=== PATIENT | female | born 1940 | race Caucasian/White ===

== ENCOUNTER → 2017-04-14 | Outpatient (CLI) | payer OTHER ==
--- NOTE | 2017-04-15 07:57 | MAMMOGRAPHY REPORT ---
BILATERAL DIGITAL SCREENING MAMMOGRAM WITH CAD: 04/14/2017 CLINICAL HISTORY: Routine screening. Patient has no complaints. TECHNIQUE: Bilateral CC and MLO views were obtained. Current study was also evaluated with a Compute r Aided Detection (CAD) system. COMPARISON: Comparison is made to exams dated: 04/12/2016 mammogram, 03/06/2015 mammogram, 03/16/2014 m ammogram, 03/04/2014 mammogram, 03/03/2013 mammogram, and 03/02/2012 mammogram - [facility] nter. BREAST COMPOSITION: The tissue of both breasts is heterogeneously dense, which may obscure small mas ses. FINDINGS: There are mild vascular calcifications and scattered benign rim calcifications in the breas ts. No suspicious mass, architectural distortion or cluster of suspicious microcalcifications is see n. IMPRESSION: ACR BI-RADS CATEGORY 1: NEGATIVE There is no mammographic evidence of malignancy. A 1 year screening mammogram is recommended. The pa tient will receive written notification of the results. Approximately 10% of breast cancers are not detected with mammography. A negative mammographic report should not delay biopsy if a clinically suggestive mass is present. Damaris Guajardo M.D. ay/:04/14/2017 15:13:38 Marketing Recruiter: [employer] DIGGS(Oswaldo)([place])([place]), [facility] letter sent: Normal 1/2 BI-RADS Code: ACR BI-RADS Category 1: Negative
== END | disposition home or self-care (01) ==
LOC: C.MAMM 10:35
PROVIDERS: ATTEND Internal Medicine
DX: Z12.31 Encounter for screening mammogram for malignant neoplasm of breast (principal)

== ENCOUNTER 2023-04-12 14:29 | Inpatient (IN) ==
--- NOTE | 2023-04-12 14:45 | Emergency Department Note ---
Impression & Plan Closed right hip fracture, Right wrist fracture, Fall ED Provider Note NAME: JESSICA SAGE AGE: 82 SEX: F : 1940 ARRIVES VIA: Ambulance INFORMANT: Patient, ED PROVIDER(S): Patrice Cardenas MD CHIEF COMPLAINT: Fall, hip pain, arm pain MEDICAL DECISION MAKING: Patient presents for fall with associated hip and arm pain. The patient did receive IV pain medication in route. IV was established blood work is obtained. The patient denies any LOC or head strike. Patient did have plain images performed of the right wrist, right hip and pelvis as well as the right ribs and chest. Patient did receive IV morphine. Patient's blood work shows a white count of 13 with a normal H&H and platelet count. White count may be reactive in nature. Kidney function unremarkable with mild hyponatremia 135. LFTs unremarkable. X-rays reviewed by myself do show distal radius fracture as well as right hip fracture. I did message on- call orthopedist Dr. Prajapati to make them aware. I did speak the on-call medicine service JESSICA Kraft and the patient was admitted by Dr. Sy. Procedures: Splinting of right upper extremity Indication: Right distal radius and ulnar styloid fractures Verbal consent obtained. Risks and benefits were explained with the usual customary discussion. The injured extremity was identified. The patient was prepped and measured for the placement of a sugar-tong ortho-glass splint. Splint applied in the standard fashion over a layer of webril and secured using an elastic bandage. Set into a position of function. Normal neurovascular status after placement verified by me. The patient tolerated the procedure well and the care of the splint was discussed with the patient/family. No complications. Definitive Fracture Care note: Dx: Distal radius and ulnar styloid fractures Plan: Immobilization, rest, ice, elevation, analgesia, orthopedic follow up in 3-5 days. Prior /Outside records reviewed: None Differential diagnosis: Fracture, sprain, strain, pneumothorax, pneumonitis among others were considered. Diagnostics, as interpreted by me: ECG: Normal sinus rhythm, rate of 65, normal intervals, left axis deviation, T wave version aVL, no ST elevations no prior EKGs for comparison Cardiac monitoring: An order was placed for continuous cardiac monitoring. The monitor shows a rate of 75 with sinus rhythm. Patient was placed on pulse oximetry Medical decision rules: [place] head CT rule Imaging studies: See below I informally reviewed the patient's right hip and pelvis x-rays which do show right-sided hip fracture. I informally reviewed the patient's right wrist x-rays which do show distal radius and ulnar styloid fractures. I informally reviewed the patient's chest and rib x-rays. No obvious pneumothorax noted. HPI: Patient presents due to concern for fall that occurred prior to arrival. The patient states that she was having some possible allergy symptoms with regard to some congestion she had gotten up turned and then fell to her right side. The patient did strike her right hip as well as her right arm. The patient was having pain and was unable to lift the right lower extremity. Patient denies any numbness tingling or focal weakness. The patient believes that she cannot move the leg secondary to pain. Patient was reported to be shortened rotated per EMS. EMS did give the patient IV pain medication was noted to be mildly hypoxic likely secondary to medication administration was placed on supplemental nasal cannula oxygen. Patient denies any shortness of breath. The patient does complain of right wrist and right hip pain. The patient also complains of right-sided chest wall pain. Patient does not take any blood thinning medications and denies any LOC or head strike and has no head or neck pain. PAST MEDICAL HISTORY: See Below PAST SURGICAL HISTORY: See Below SOCIAL HISTORY: See Below HOME MEDICATIONS: See Below ALLERGIES: See Below VITALS: See Below PHYSICAL EXAMINATION: GENERAL: Uncomfortable but nontoxic in appearance. Nasal cannula in place. EYE EXAM: Normal conjunctiva. PERRL, no anisocoria and EOM's grossly intact w/o pain. OROPHARYNX: Moist mucus membranes, grossly normal dentition. NECK: Supple, no nuchal rigidity, no adenopathy, non-tender. No signs of meningismus. FROM of the neck with good chin to chest and neck extension. No stridor. Chest: Reproducible right mid axillary chest wall pain without overlying crepitus or flail chest noted LUNGS: Clear to auscultation. Normal chest wall mechanics. HEART: NSR, no MRG. ABDOMEN: Abdomen soft, non-tender, no masses, no rebound or guarding. BACK: No CVA TTP. SKIN: No rashes and no bruising. UPPER EXTREMITIES: Pain noted to the distal wrist. Neurovascular intact distall y to median ulnar and radial nerves. Well perfused LOWER EXTREMITIES: Right hip pain, right lower extremity is shortened, neurovascular intact distally with good DP pulse and sensation and motor tach in the ankle to DP SP and tibialis nerves NEURO EXAM: A&O x3, cranial nerves II-XII grossly intact, normal speech, moves all 4 extremities. Past Med/Surg History Medical History Chronic congestive heart failure Coronary artery disease involving [place] coronary artery of [place] heart without angina pectoris Essential (primary) hypertension Hyperlipidemia Surgical History H/O: hysterectomy History of ankle surgery Family History Brother Coronary heart disease Brother Coronary heart disease Sister Coronary heart disease Father Lung disease Mother Breast cancer Social History (Updated 04/12/23 @ 17:47 by Viki Friedman MD) Smoking Status: Never smoker Second Hand Exposure: No; Do You Dip or Chew Tobacco: No; Hx Alcohol Use: No Hx Substance Use: No Preferred Language: Korean Communication Ability: Effective Lab Support Tech Required: No Beliefs That Will Affect Care: None Current Living Situation: Alone Other Information That Helps Us Care for You: No Feels Safe at Home: Yes Safety Concerns: Feels Safe At This Time Assistive Devices: None Allergies Allergies Allergy/AdvReac Type Severity Reaction Status Date / Time No Known Allergies Allergy Unverified 04/12/23 21:13 Home Meds Home Medications Medication Instructions Recorded Confirmed amlodipine 5 mg tablet 5 mg PO DAILY 04/12/23 04/12/23 atorvastatin 80 mg tablet 80 mg PO HS 04/12/23 04/12/23 citalopram 10 mg tablet 10 mg PO QAM 04/12/23 04/12/23 ezetimibe 10 mg tablet (Zetia) 10 mg PO QPM 04/12/23 04/12/23 furosemide 20 mg tablet 20 mg PO DIRECTED 04/12/23 04/12/23 hydrocodone 5 mg-acetaminophen 325 1 tab PO QID PRN Pain 04/12/23 04/12/23 mg tablet lisinopril 2.5 mg tablet 2.5 mg PO PM 04/12/23 04/12/23 montelukast 10 mg tablet 10 mg PO PM 04/12/23 04/12/23 ondansetron 4 mg disintegrating 4 mg PO Q6H PRN Nausea And Vomiting 04/12/23 04/12/23 tablet pantoprazole 40 mg tablet,delayed 40 mg PO DAILYBB 04/12/23 04/12/23 release Results & Data (ED) Vital Signs Vital Signs - 24 hr 04/12/23 14:16 04/12/23 14:57 04/12/23 15:04 Temperature 36.7 C Temperature Source Oral Pulse Rate 65 63 Pulse Rate from SpO2 Sensor Respiratory Rate 21 Respiratory Effort / Characteristics Non-Labored Spontaneous Respiratory Depth Normal Respiratory Pattern Regular Blood Pressure 177/83 H Blood Pressure Mean 114 Pulse Oximetry 96 97 Oxygen Delivery Method Room Air Room Air Sepsis Recent Fever Within 48 Hours No Sepsis New/Unexplained Change in Mental Status N/A Sepsis Action Taken by Nursing No Action Required 04/12/23 14:34 04/12/23 14:35 04/12/23 14:35 Temperature Temperature Source Pulse Rate 68 66 Pulse Rate from SpO2 Sensor 65 Respiratory Rate 19 20 Respiratory Effort / Characteristics Respiratory Depth Respiratory Pattern Blood Pressure 177/83 H Blood Pressure Mean 113 Pulse Oximetry 97 Oxygen Delivery Method Sepsis Recent Fever Within 48 Hours Sepsis New/Unexplained Change in Mental Status Sepsis Action Taken by Nursing 04/12/23 15:00 04/12/23 15:30 Temperature Temperature Source Pulse Rate 64 71 Pulse Rate from SpO2 Sensor 60 71 Respiratory Rate 16 16 Respiratory Effort / Characteristics Respiratory Depth Respiratory Pattern Blood Pressure Blood Pressure Mean Pulse Oximetry 97 97 Oxygen Delivery Method Room Air Sepsis Recent Fever Within 48 Hours Sepsis New/Unexplained Change in Mental Status Sepsis Action Taken by Care Home Medications Current Medication List: was personally reviewed by me Laboratory Data Attestation: I reviewed the patient's lab results. 04/13/23 08:32 04/13/23 08:32 Lab Results 04/12/23 04/12/23 Range/Units 14:39 14:39 WBC 13.02 H (4.8-10.8) K/ul RBC 4.65 (4.20-5.40) M/uL Hgb 13.9 (12.0-16.0) g/dl Hct 41.9 (37.0-47.0) % MCV 90.1 (80.0-100.0) fL MCH 29.9 (25.0-34.0) pg MCHC 33.2 (32.0-36.0) g/dL RDW Std Deviation 42.6 (36.4-46.3) fL RDW Coeff of Pamela 12.9 (11.5-14.5) % Plt Count 210 (130-400) K/uL MPV 10.3 (9.4-12.4) fL Immature Gran % (Auto) 0.5 % Neut % (Auto) 86.5 % Lymph % (Auto) 6.3 % Carlisle % (Auto) 6.4 % Eos % (Auto) 0.1 % Baso % (Auto) 0.2 % Neut # (Auto) 11.27 H (1.40-6.50) K/uL Lymph # (Auto) 0.82 L (1.2-3.4) K/uL Carl[place] # (Auto) 0.83 H (0.11-0.59) K/uL Eos # (Auto) 0.01 (0-0.50) K/uL Baso # (Auto) 0.03 (0-0.2) K/uL Immature Gran # (Auto) 0.06 (0.01-0.20) K/uL Sodium 135 L (136-145) mmol/L Potassium 4.2 (3.5-5.1) mmol/L Chloride 103 (98-107) mmol/L Carbon Dioxide 25 (21-32) mmol/L Anion Gap 7 (3-11) BUN 14 (6-23) mg/dl Creatinine 0.96 (0.6-1.2) mg/dl Est Cr Clr Drug Dosing 52.4 ml/min Est GFR ( Amer) 63.8 ml/min Est GFR (Non-Af Amer) 55.1 ml/min BUN/Creatinine Ratio 14.6 (10-20) Glucose 114 H (70-99(Fasting)) mg/dl Calcium 9.3 (8.6-10.3) mg/dl Total Bilirubin 0.5 (0.2-1.0) mg/dl AST 28 (13-39) U/L ALT 20 (7-52) U/L Alkaline Phosphatase 96 (34-104) U/L Total Protein 6.8 (6.0-8.3) gm/dl Albumin 4.2 (3.4-5.0) gm/dl Globulin 2.6 (2.5-4.0) gm/dl Albumin/Globulin Ratio 1.6 (0.9-2) Lipase 24 (11-82) U/L Administered Medications Amlodipine Besylate (Amlodipine Besylate 5 Mg Tab) 5 mg PO DAILY ROSE MARIE Stop: 05/13/23 08:59 Last Admin: 04/13/23 07:29 Dose: 5 mg Documented By: CMV Atorvastatin Calcium (Atorvastatin 40 Mg Tab) 80 mg PO HS ROSE MARIE Stop: 05/12/23 21:54 Last Admin: 04/12/23 23:47 Dose: 80 mg Documented By: EKF Citalopram Hydrobromide (Citalopram 20 Mg Tab) 10 mg PO QAM ROSE MARIE Stop: 05/13/23 08:59 Last Admin: 04/13/23 07:29 Dose: 10 mg Documented By: CMV Ezetimibe (Ezetimibe 10 Mg Tab) 10 mg PO QPM ROSE MARIE Stop: 05/12/23 21:54 Last Admin: 04/12/23 23:47 Dose: 10 mg Documented By: EKF Lisinopril (Lisinopril 2.5 Mg Tab) 2.5 mg PO PM ROSE MARIE Stop: 05/12/23 21:54 Last Admin: 04/12/23 23:47 Dose: 2.5 mg Documented By: EKF Montelukast Sodium (Montelukast Sodium 10 Mg Tablet) 10 mg PO PM ROSE MARIE Stop: 05/12/23 21:54 Last Admin: 04/12/23 23:48 Dose: 10 mg Documented By: EKF Morphine Sulfate (Morphine Sulfate 4 Mg/Ml 1 Ml Carp\Vial) 4 mg IV Q4 PRN PRN Reason: Severe Pain (Scale 7, 8, 9,10) Stop: 04/26/23 21:54 Last Admin: 04/13/23 06:01 Dose: 4 mg Documented By: Admin: 04/12/23 22:29 Dose: 4 mg Documented By: EKF Ondansetron HCl (Ondansetron Inj 2 Mg/Ml 2 Ml Vial) 4 mg IV Q6H PRN PRN Reason: Nausea Stop: 05/12/23 18:04 Last Admin: 04/13/23 06:07 Dose: 4 mg Documented By: Admin: 04/12/23 22:28 Dose: 4 mg Documented By: EKF Pantoprazole Sodium (Pantoprazole 40 Mg Tab) 40 mg PO DAILYBB ROSE MARIE Stop: 05/13/23 06:29 Last Admin: 04/13/23 07:30 Dose: 40 mg Documented By: Admin: 04/13/23 05:33 Dose: Not Given Documented By: EKF Discontinued Medications Heparin Sodium (Porcine) (Heparin Sod 5,000 Unit/0.5 Ml Vial) 5,000 units SQ Q12 ROSE MARIE Stop: 05/12/23 20:59 Last Admin: 04/12/23 22:04 Dose: Not Given Documented By: EKF Hydromorphone HCl (Hydromorphone Inj 0.5 Mg/0.5 Ml Syr) 0.5 mg IV NOW STA Stop: 04/12/23 22:49 Last Admin: 04/12/23 22:56 Dose: 0.5 mg Documented By: PONCHOF Sodium Chloride (Nss 1000ml) 1,000 mls @ 999 mls/hr IV .Q1H1M STA Stop: 04/12/23 16:00 Last Infusion: 04/12/23 17:02 Dose: 0 mls/hr Documented By: Admin: 04/12/23 15:08 Dose: 999 mls/hr Documented By: ANIL Acetaminophen (Ofirmev) 1,000 mg in 100 mls @ 400 mls/hr IV NOW STA Stop: 04/12/23 15:14 Last Infusion: 04/12/23 16:30 Dose: 0 mls/hr Documented By: Admin: 04/12/23 15:09 Dose: 400 mls/hr Documented By: ANIL Acetaminophen (Ofirmev) 1,000 mg in 100 mls @ 400 mls/hr IV NOW STA Stop: 04/13/23 09:25 Last Infusion: 04/13/23 09:31 Dose: 0 mls/hr Documented By: Admin: 04/13/23 09:16 Dose: 400 mls/hr Documented By: CMV Morphine Sulfate (Morphine Sulfate 4 Mg/Ml 1 Ml Carp\Vial) 4 mg IV NOW STA Stop: 04/12/23 15:01 Last Admin: 04/12/23 15:08 Dose: 4 mg Documented By: ANIL Morphine Sulfate (Morphine Sulfate 4 Mg/Ml 1 Ml Carp\Vial) 4 mg IV NOW STA Stop: 04/12/23 17:37 Last Admin: 04/12/23 17:51 Dose: 4 mg Documented By: ANIL Imaging Data Radiologist's Impression: Hip/Pelvis X-Ray 04/12/23 15:00 XR hip RT 2V w pelvis HISTORY: 82 years-old Female fall, likely frx acute right hip pain status post fall COMPARISON: None TECHNIQUE: AP view of the pelvis with 2 views of the right hip FINDINGS: Moderate osteoarthritis of the hips. There is an acute fracture with probable mild comminution involving the right femoral neck which appears to be transcervical. Mild impaction with 2.3 cm of superior displacement of the distal fracture fragment. No dislocation or additional acute fracture identified. Arterial calcifications. IMPRESSION: 1. Acute mildly impacted and displaced transcervical right femoral fracture. 2. No dislocation. ACT 112: Negative or not required by law. The above report was generated using voice recognition software. It may contain grammatical, syntax or spelling errors. Electronically signed by: Abhishek Mota M.D. 04/12/2023 4:38 PM Ribs w/Chest X-Ray 04/12/23 15:00 XR ribs RT min 2V w CXR1V HISTORY: 82 years-old Female fall, R lateral rib pain acute right-sided rib pain status post fall COMPARISON: None TECHNIQUE: AP view of the chest with 4 views of the right ribs FINDINGS: Cardiomediastinal and hilar silhouettes are within normal limits. No pneumothorax, pleural effusion, airspace consolidation or pulmonary edema. Pleural thickening at the lung apices. Degenerative changes of the shoulders and spine. No acute displaced rib fractures identified. IMPRESSION: 1. No acute process of the chest. 2. No acute displaced rib fracture or pneumothorax identified. ACT 112: Negative or not required by law. The above report was generated using voice recognition software. It may contain grammatical, syntax or spelling errors. Electronically signed by: Abhishek Mota M.D. 04/12/2023 4:41 PM Wrist X-Ray 04/12/23 15:00 XR wrist RT min 3V routine HISTORY: 82 years-old Female pain post fall acute pain of the right wrist COMPARISON: None TECHNIQUE: 4 views of the right breast FINDINGS: Acute intra-articular distal radial mildly impacted fracture demonstrates a few millimeters of lateral displacement with 7 mm dorsal displacement and mild apex volar angulation. Acute minimally displaced ulnar styloid fracture. Moderate osteoarthritis with indeterminate subcentimeter bone fragment lateral to the trapezium. No acute carpal bone fracture identified. IMPRESSION: 1. Acute, mildly impacted and displaced comminuted intra-articular distal radial fracture. 2. Acute minimally displaced ulnar styloid fracture. ACT 112: Negative or not required by law. The above report was generated using voice recognition software. It may contain grammatical, syntax or spelling errors. Electronically signed by: Abhishek Mota M.D. 04/12/2023 4:37 PM Discharge Plan Visit Data Chief Complaint: Leg Injury/Pain Stated Complaint: LEG INJURY/PAIN ED Provider: Patrice Cardenas Discharge Problem: Closed right hip fracture, Right wrist fracture, Fall Patient Disposition: Admitted As Inpatient Discharge Instructions Interventions: ED Discharge Assessment Last Done: 04/12/23 21:02
[2023-04-12] MEDS ORDERED: SODIUM CHLORIDE 0.9% 1000ML 1,000 ML IV STA (15:00)
[2023-04-12] MEDS ORDERED: MoRPHine SULFATE 4 MG/ML 1 ML CARP\\VIAL IV STA ×2 (15:00→17:36)
[2023-04-12] MEDS ORDERED: ACETAMINOPHEN 1,000 MG/100 ML VIAL IV STA (15:00)
[2023-04-12 15:16] LABS: Basophils # (auto) 0.03 K/uL (0-0.2); Basophils % (auto) 0.2 %; Eosinophils # (auto) 0.01 K/uL (0-0.50); Eosinophils % (auto) 0.1 %; Hematocrit (blood only) 41.9 % (37.0-47.0); Hemoglobin 13.9 g/dl (12.0-16.0); Immature Granulocytes # (auto) 0.06 K/uL (0.01-0.20); Immature Granulocytes % (auto) 0.5 %; Lymphocytes # (auto) 0.82 K/uL (1.2-3.4); Lymphocytes % (auto) 6.3 %; Mean Corpuscular Hemoglobin 29.9 pg (25.0-34.0); Mean Corpuscular Hgb Conc 33.2 g/dL (32.0-36.0); Mean Corpuscular Volume 90.1 fL (80.0-100.0); Mean Platelet Volume 10.3 fL (9.4-12.4); Monocytes # (auto) 0.83 K/uL (0.11-0.59); Monocytes % (auto) 6.4 %; Neutrophils # (auto) 11.27 K/uL (1.40-6.50); Neutrophils % (auto) 86.5 %; Platelet Count 210 K/uL (130-400); RDW Coefficient of Variation 12.9 % (11.5-14.5); RDW Standard Deviation 42.6 fL (36.4-46.3); Red Blood Count 4.65 M/uL (4.20-5.40); White Blood Count 13.02 K/ul (4.8-10.8)
[2023-04-12 15:21] LABS: Albumin Globulin Ratio 1.6 (0.9-2); Albumin Level 4.2 gm/dl (3.4-5.0); BUN Creatinine Ratio 14.6 (10-20); Bilirubin,Total 0.5 mg/dl (0.2-1.0); Calcium 9.3 mg/dl (8.6-10.3); Creatinine Clr Calc Pharmacy 52.4 ml/min; Est GFR (African American) 63.8 ml/min; Est GFR (Non-African American) 55.1 ml/min; Globulin 2.6 gm/dl (2.5-4.0); Potassium 4.2 mmol/L (3.5-5.1); Total Protein 6.8 gm/dl (6.0-8.3)
--- NOTE | 2023-04-12 16:38 | XRay Report ---
XR wrist RT min 3V routine HISTORY: 82 years-old Female pain post fall acute pain of the right wrist COMPARISON: None TECHNIQUE: 4 views of the right breast FINDINGS: Acute intra-articular distal radial mildly impacted fracture demonstrates a few millimeters of latera l displacement with 7 mm dorsal displacement and mild apex volar angulation. Acute minimally displace d ulnar styloid fracture. Moderate osteoarthritis with indeterminate subcentimeter bone fragment late ral to the trapezium. No acute carpal bone fracture identified. IMPRESSION: 1. Acute, mildly impacted and displaced comminuted intra-articular distal radial fracture. 2. Acute minimally displaced ulnar styloid fracture. ACT 112: Negative or not required by law. The above report was generated using voice recognition software. It may contain grammatical, syntax o r spelling errors. Electronically signed by: Abhisehk Mota M.D. 04/12/2023 4:37 PM
--- NOTE | 2023-04-12 16:40 | XRay Report ---
XR hip RT 2V w pelvis HISTORY: 82 years-old Female fall, likely frx acute right hip pain status post fall COMPARISON: None TECHNIQUE: AP view of the pelvis with 2 views of the right hip FINDINGS: Moderate osteoarthritis of the hips. There is an acute fracture with probable mild comminution involv ing the right femoral neck which appears to be transcervical. Mild impaction with 2.3 cm of superior displacement of the distal fracture fragment. No dislocation or additional acute fracture identified. Arterial calcifications. IMPRESSION: 1. Acute mildly impacted and displaced transcervical right femoral fracture. 2. No dislocation. ACT 112: Negative or not required by law. The above report was generated using voice recognition software. It may contain grammatical, syntax o r spelling errors. Electronically signed by: Abhishek Mota M.D. 04/12/2023 4:38 PM
--- NOTE | 2023-04-12 16:43 | XRay Report ---
XR ribs RT min 2V w CXR1V HISTORY: 82 years-old Female fall, R lateral rib pain acute right-sided rib pain status post fall COMPARISON: None TECHNIQUE: AP view of the chest with 4 views of the right ribs FINDINGS: Cardiomediastinal and hilar silhouettes are within normal limits. No pneumothorax, pleural effusion, airspace consolidation or pulmonary edema. Pleural thickening at the lung apices. Degenerative change s of the shoulders and spine. No acute displaced rib fractures identified. IMPRESSION: 1. No acute process of the chest. 2. No acute displaced rib fracture or pneumothorax identified. ACT 112: Negative or not required by law. The above report was generated using voice recognition software. It may contain grammatical, syntax o r spelling errors. Electronically signed by: Abhishek Mota M.D. 04/12/2023 4:41 PM
--- NOTE | 2023-04-12 17:32 | History & Physical Report ---
Date of Service April 12, 2023 Assessment & Plan (1) Closed right hip fracture: Plan: d/t mechanical fall ortho consulted, appreciate input, will follow recs continue analgesia, bedrest for now patient is medically optimized for surgery revised cardiac risk index for pre-operative risk is 2 points, class III risk, or 10% chance of 30 day , NH, or cardiac arrest provided the history the patient gave is accurate (2) Right wrist fracture: Plan: fx as above under imaging ortho consulted, appreciate input, will follow recs continue analgesia, continue splint for now (3) Chronic congestive heart failure: Plan: pt is unsure what type of CHF she has continue furosemide 20 mg daily when taking po, hold when NPO for surgery currently euvolemic pt does not know who 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 Reported current flatwork presser is located in [place] on [address] [place] [address], I did not find an office matching that description (5) Neutrophilic leukocytosis: Plan: reactive d/t bone fxs no clinical utility in monitoring (6) Hyperlipidemia: Plan: continue statin therapy no indication to check a lipid panel at this time cardiac diet (7) Essential (primary) hypertension: Plan: continue amlodipine 5 mg daily, lisinopril 2.5 mg daily continue furosemide as above under chf cardiac diet History of Present Illness Chief Complaint: hip and wrist pain Primary Care Provider: Bernardino Abarca Ms. Bloom is an 82 year old female with pmhx (per patient and daughter at bedside) of CAD s/p stent x 6, CHF (unknown what type), HTN, and HLP. She suffered a mechanical fall and presented due to pain. She is found to have fractures of the right hip and wrist. Ms. Bloom has been in her usual state of health. She denies recent illness. She suffered a mechanical fall when she turned around rapidly. She landed on her right side. She is in 8.5/10 pain in the right hip. Pain is worse with movement and improved with analgesia and rest. She has some mild nausea which she says is not unusual for her. She denies dizziness, lightheadedness, COWAN, f/c/v, CP, sob, dyspnea, cough, congestion, sore throat, abdominal pain, diarrhea, and dysuria. ED course: VS notable for BP 177/83, otherwise unimpressive. b/w notable for wbc 13.02. Remaining cbc and cmp, lipase are unimpressive/wnl imaging revealed "Acute mildly impacted and displaced transcervical right femoral fracture...Acute, mildly impacted and displaced comminuted intra- articular distal radial fracture. Acute minimally displaced ulnar styloid fracture." Pt given Morphine, Tylenol, and NS. Admitted to hospitalist service. Ortho was consulted by ED MD. I am not aware of the plan other than the soonest the patient could possibly go to the OR is tomorrow, therefore I'll order a diet for now and NPO after midnight. Home Medications Medication Instructions Recorded Confirmed Type amlodipine 5 mg tablet 5 mg PO DAILY 04/12/23 04/12/23 History atorvastatin 80 mg tablet 80 mg PO HS 04/12/23 04/12/23 History citalopram 10 mg tablet 10 mg PO QAM 04/12/23 04/12/23 History ezetimibe 10 mg tablet (Zetia) 10 mg PO QPM 04/12/23 04/12/23 History furosemide 20 mg tablet 20 mg PO DIRECTED 04/12/23 04/12/23 History hydrocodone 5 mg-acetaminophen 325 1 tab PO QID PRN Pain 04/12/23 04/12/23 History mg tablet lisinopril 2.5 mg tablet 2.5 mg PO PM 04/12/23 04/12/23 History montelukast 10 mg tablet 10 mg PO PM 04/12/23 04/12/23 History ondansetron 4 mg disintegrating 4 mg PO Q6H PRN Nausea And Vomiting 04/12/23 04/12/23 History tablet pantoprazole 40 mg tablet,delayed 40 mg PO DAILYBB 04/12/23 04/12/23 History release Past Med/Surg History Medical History (Updated 04/12/23 @ 17:44 by Viki Friedman MD) Chronic congestive heart failure Coronary artery disease involving alutiiq coronary artery of alutiiq heart without angina pectoris Essential (primary) hypertension Hyperlipidemia Surgical History (Updated 04/12/23 @ 17:45 by Viki Friedman MD) H/O: hysterectomy History of ankle surgery Family History (Updated 04/12/23 @ 17:46 by Viki Friedman MD) Brother Coronary heart disease Brother Coronary heart disease Sister Coronary heart disease Father Lung disease Mother Breast cancer Social History (Updated 04/12/23 @ 17:47 by Viki Friedman MD) Smoking Status: Never smoker Hx Alcohol Use: No Hx Substance Use: No Feels Safe at Home: Yes Review of Systems Review of Systems: All systems reviewed & are unremarkable except as noted in HPI & below Physical Exam Physical Exam: General: NAD, well nourished, well developed, non-toxic appearing Head: NC AT Eyes: anicteric sclera, no conjunctival injection Nose: normal, nares patent Mouth: MMM, discolored teeth Neck: supple, trachea midline CV: RRR S1 S2 Pulm: CTA b/l Abd/GI: + BS, soft, NT, ND, no guarding : no garza Ext: no pretibial edema. RLE outwardly rotated, shortened. Right distal UE splinted, dressings not taken down. MSK: normal bulk and tone. Neuro: alert, no focal deficits, unable to move the RLE d/t pain. Moving the RUE. Psych: pleasant mood and affect Skin: visible skin is warm, dry, and without rash. Pt not fully undressed for exam. Results & Data Results & Data Vital Signs (Past 12 Hours) Vital Signs Temp Pulse Resp BP Pulse Ox O2 Del Method 04/12/23 15:30 71 16 97 Room Air 04/12/23 15:00 64 16 97 04/12/23 14:35 66 20 97 04/12/23 14:35 177/83 H 04/12/23 14:34 68 19 04/12/23 15:04 97 Room Air 04/12/23 14:57 63 04/12/23 14:16 36.7 C 65 21 177/83 H 96 Room Air Laboratory Results Short CBC 04/12/23 Range/Units 14:39 WBC 13.02 H (4.8-10.8) K/ul Hgb 13.9 (12.0-16.0) g/dl Hct 41.9 (37.0-47.0) % Plt Count 210 (130-400) K/uL BMP 04/12/23 14:39 Sodium 135 L Potassium 4.2 Chloride 103 Carbon Dioxide 25 BUN 14 Creatinine 0.96 Glucose 114 H Calcium 9.3 Liver Function 04/12/23 Range/Units 14:39 Total Bilirubin 0.5 (0.2-1.0) mg/dl AST 28 (13-39) U/L ALT 20 (7-52) U/L Alkaline Phosphatase 96 (34-104) U/L Albumin 4.2 (3.4-5.0) gm/dl Diagnostic Findings Hip/Pelvis X-Ray 04/12/23 15:00 XR hip RT 2V w pelvis HISTORY: 82 years-old Female fall, likely frx acute right hip pain status post fall TECHNIQUE: AP view of the pelvis with 2 views of the right hip FINDINGS: Moderate osteoarthritis of the hips. There is an acute fracture with probable mild comminution involving the right femoral neck which appears to be transcervical. Mild impaction with 2.3 cm of superior displacement of the distal fracture fragment. No dislocation or additional acute fracture identified. Arterial calcifications. IMPRESSION: 1. Acute mildly impacted and displaced transcervical right femoral fracture. 2. No dislocation. Electronically signed by: Abhishek Mota M.D. 04/12/2023 4:38 PM Ribs w/Chest X-Ray 04/12/23 15:00 XR ribs RT min 2V w CXR1V HISTORY: 82 years-old Female fall, R lateral rib pain acute right-sided rib pain status post fall TECHNIQUE: AP view of the chest with 4 views of the right ribs FINDINGS: Cardiomediastinal and hilar silhouettes are within normal limits. No pneumothorax, pleural effusion, airspace consolidation or pulmonary edema. Pleural thickening at the lung apices. Degenerative changes of the shoulders and spine. No acute displaced rib fractures identified. IMPRESSION: 1. No acute process of the chest. 2. No acute displaced rib fracture or pneumothorax identified. Electronically signed by: Abhishek Mota M.D. 04/12/2023 4:41 PM Wrist X-Ray 04/12/23 15:00 XR wrist RT min 3V routine HISTORY: 82 years-old Female pain post fall acute pain of the right wrist TECHNIQUE: 4 views of the right breast FINDINGS: Acute intra-articular distal radial mildly impacted fracture demonstrates a few millimeters of lateral displacement with 7 mm dorsal displacement and mild apex volar angulation. Acute minimally displaced ulnar styloid fracture. Moderate osteoarthritis with indeterminate subcentimeter bone fragment lateral to the trapezium. No acute carpal bone fracture identified. IMPRESSION: 1. Acute, mildly impacted and displaced comminuted intra-articular distal radial fracture. 2. Acute minimally displaced ulnar styloid fracture. Electronically signed by: Abhishek Mota M.D. 04/12/2023 4:37 PM Code Status & VTE Plan Code Status Full
[2023-04-12] MEDS ORDERED: POLYETHYLENE (MIRALAX) 17 GM PACK PO PRN (18:05)
[2023-04-12] MEDS ORDERED: ALUMINUM/MAGNESIUM SUSP 30 ML UDC PO PRN (18:05)
[2023-04-12] MEDS ORDERED: ACETAMINOPHEN 325 MG TAB PO PRN (18:05)
[2023-04-12] MEDS ORDERED: HEPARIN SOD 5,000 UNIT/0.5 ML VIAL SQ SCH (21:00)
--- NOTE | 2023-04-12 21:24 | Orthopedic Consultation ---
Date of Consultation April 12, 2023 Assessment & Plan (1) Closed right hip fracture: Patient's imaging revealed a mildly impacted and displaced transcervical right femoral fracture. Dr. Bowen was present during the examination and he also discussed treatment options were discussed surgical and nonsurgical with patient and son, Khai. We discussed risk and benefits of each. Patient and patient's son opted for surgical intervention, a right hip hemiarthroplasty. Consent was obtained. Patient will be n.p.o. at 11:59 PM on 04/12/2023. No anticoagulation needed at this time due to she will be taken to the OR tomorrow morning. Patient was ordered a right tibia and fibula x-ray due to tenderness we will monitor this once it is completed. She was ordered Ancef that will be administered preoperatively as well as TXA. We discussed briefly she would be in the hospital here for a few days depending on how she responds to therapy. She does reside alone and we discussed possible transitioning to rehabilitation for short period if needed. We will have her discuss this case management postoperatively with her and her family as well. She will continue with pain medications per primary team to assist with pain control. She can continue with ice to the right hip. All questions were answered to patient and her son satisfaction. Patient and son verbalized understanding and are in agreement plan. Present on Admission?: Yes (2) Right wrist fracture: Patient imaging that revealed a impacted distal radius fracture. Patient has a history of this being fractured years ago and was treated with a cast. At this time we mutually agreed upon closed treatment for a minimally displaced distal radius fracture. I applied soft roll to the right upper extremity and this was well-padded. I then applied a sugar-tong splint that was wrapped with an Tyrone bandage. Patient was able to move digits post splinting. At this time we will treat conservatively for the wrist. Once her swelling goes down we will consider transitioning to cast. She can continue to elevate the upper extremity and use ice as needed. She was advised nonweightbearing through the right upper extremity at this time.All questions were answered to patient and her son satisfaction. Patient and son verbalized understanding and are in agreement plan. History of Present Illness Reason for Consultation: Right wrist fracture and right hip fracture Attending Physician: Dr. Prajapati History of Present Illness Dr. Canales is a 82-year-old [id number] female who is seen bedside in ER [address] She is a accompanied with her son Khai who is also contributing to her history. Patient resides by herself and denies any use of an assistive device. She was brought to [facility] via EMS secondary to a fall that was unwitnessed. She states she was getting up ready to go to her bathroom to get shower ready for the day. She states she is unsure what caused her to fall but she landed onto the right side. She states she must of put her arm up to help break the fall. She denies hitting her head or any loss of consciousness. She states she sat there trying to get up and she was unable to. She states she propped herself up against the wall. Fortunately there is a salesperson that came by and was able to hear her calling for help. Once his attention was gone they had reached out to her daughter who then advised him to call her son who lives right next door. He was able to get EMS where she was brought to [facility] evaluated. She states she was not able to walk and continues to have pain in her right hip and her right wrist. She states she has no open areas over the leg or over the upper extremity. She denies any numbness or tingling in the leg. She had imaging that revealed a fracture to the right hip as well as the right wrist. She has a history of having 6 cardiac stents and follows cardiology in [place]. She is not on any anticoagulation including aspirin, Plavix or any other anticoagulation. She states she has been off of this for approximately 6 months. She has a history of GERD and H. pylori. She does have a history of high cholesterol as well as hypertension. She denies any history of any pulmonary embolisms, DVTs, pulmonary issues, MRSA infections metal allergies, latex allergies or medication allergies. She does report that she has a difficulty time coming out of anesthesia as well as having nausea. Allergies Allergy/AdvReac Type Severity Reaction Status Date / Time No Known Allergies Allergy Unverified 04/12/23 21:13 Home Medications Medication Instructions Recorded Confirmed Type amlodipine 5 mg tablet 5 mg PO DAILY 04/12/23 04/12/23 History atorvastatin 80 mg tablet 80 mg PO HS 04/12/23 04/12/23 History citalopram 10 mg tablet 10 mg PO QAM 04/12/23 04/12/23 History ezetimibe 10 mg tablet (Zetia) 10 mg PO QPM 04/12/23 04/12/23 History furosemide 20 mg tablet 20 mg PO DIRECTED 04/12/23 04/12/23 History hydrocodone 5 mg-acetaminophen 325 1 tab PO QID PRN Pain 04/12/23 04/12/23 History mg tablet lisinopril 2.5 mg tablet 2.5 mg PO PM 04/12/23 04/12/23 History montelukast 10 mg tablet 10 mg PO PM 04/12/23 04/12/23 History ondansetron 4 mg disintegrating 4 mg PO Q6H PRN Nausea And Vomiting 04/12/23 04/12/23 History tablet pantoprazole 40 mg tablet,delayed 40 mg PO DAILYBB 04/12/23 04/12/23 History release Patient History Medical History (Updated 04/12/23 @ 17:44 by Viki Friedman MD) Chronic congestive heart failure Coronary artery disease involving ho-chunk coronary artery of ho-chunk heart without angina pectoris Essential (primary) hypertension Hyperlipidemia Surgical History (Updated 04/12/23 @ 17:45 by Viki Friedman MD) H/O: hysterectomy History of ankle surgery Family History (Updated 04/12/23 @ 17:46 by Viki Friedman MD) Brother Coronary heart disease Brother Coronary heart disease Sister Coronary heart disease Father Lung disease Mother Breast cancer Social History (Updated 04/12/23 @ 17:47 by Viki Friedman MD) Smoking Status: Never smoker Second Hand Exposure: No; Do You Dip or Chew Tobacco: No; Hx Alcohol Use: No Hx Substance Use: No Preferred Language: Upper Sorbian Communication Ability: Effective Cleaner Furniture Required: No Beliefs That Will Affect Care: None Current Living Situation: Alone Other Information That Helps Us Care for You: No Feels Safe at Home: Yes Safety Concerns: Feels Safe At This Time Assistive Devices: None and Denture - Upper Review of Systems Review of Systems: All systems reviewed & are unremarkable except as noted in HPI & below Physical Exam Physical Exam: General: Patient is alert and oriented x3 answering questions appropriately. Integumentary: She has ecchymosis over the anterior brooks on the right leg. Negative for any open areas. There are areas of ecchymosis over the right dorsal aspect of the wrist negative for any open areas or abrasions. Musculoskeletal: Attention to right upper extremity: Right upper extremity was in a sugar-tong splint this was removed completely to inspect her skin as noted above. There is a deformity over the dorsal aspect of the wrist negative for any open areas. She has palpable tenderness over the radial aspect. She is able to do slight wrist flexion and extension. This is painful. She is able to fully flex and extend the digits as well as AB duct and adduct them. She has full sensation of all digits and over the forearm. She is able to fully make a fist and squeeze. She is able to flex and extend the ulna elbow. She is able to fully pronate and limited with supination due to pain. Right upper extremity was well-padded and placed back into a sugar-tong splint. Her capillary refill was less than 2 seconds and able to freely move digits. She is able to move the left upper extremity without any pain or discomfort. No deformity or ecchymosis noted. Attention was then made to bilateral lower extremities. She has a shortened right lower extremity that is slightly externally rotated. She is unable to move the right hip or knee due to pain. She is able to fully wiggle toes and actively able to do dorsiflexion and plantarflexion of the ankle. She has sensation over these areas as well. She is tender over the anterior groin and lateral hip on the right side. She has palpable tenderness along the anterior brooks on the right lower extremity. She is able to flex the knee and hip on the left side without discomfort. She is able to wiggle toes and ankle range of motion on the left side as well. Dorsal pedis pulse 1. Results & Data Vital Signs (Past 12 Hours) Vital Signs Temp Pulse Pulse Resp BP BP Pulse Ox 04/12/23 21:02 69 17 159/71 H 96 04/12/23 19:19 65 20 172/79 H 95 04/12/23 15:30 71 16 97 04/12/23 15:00 64 16 97 04/12/23 14:35 66 20 97 04/12/23 14:35 177/83 H 04/12/23 14:34 68 19 04/12/23 15:04 97 04/12/23 14:57 63 04/12/23 14:16 36.7 C 65 21 177/83 H 96 O2 Del Method 04/12/23 21:02 Room Air 04/12/23 19:19 Room Air 04/12/23 15:30 Room Air 04/12/23 15:00 04/12/23 14:35 04/12/23 14:35 04/12/23 14:34 04/12/23 15:04 Room Air 04/12/23 14:57 04/12/23 14:16 Room Air Laboratory Results 04/12/23 04/12/23 Range/Units 14:39 14:39 WBC 13.02 H (4.8-10.8) K/ul RBC 4.65 (4.20-5.40) M/uL Hgb 13.9 (12.0-16.0) g/dl Hct 41.9 (37.0-47.0) % MCV 90.1 (80.0-100.0) fL MCH 29.9 (25.0-34.0) pg MCHC 33.2 (32.0-36.0) g/dL RDW Std Deviation 42.6 (36.4-46.3) fL RDW Coeff of Pamela 12.9 (11.5-14.5) % Plt Count 210 (130-400) K/uL MPV 10.3 (9.4-12.4) fL Immature Gran % (Auto) 0.5 % Neut % (Auto) 86.5 % Lymph % (Auto) 6.3 % Buchanan % (Auto) 6.4 % Eos % (Auto) 0.1 % Baso % (Auto) 0.2 % Neut # (Auto) 11.27 H (1.40-6.50) K/uL Lymph # (Auto) 0.82 L (1.2-3.4) K/uL Buchanan # (Auto) 0.83 H (0.11-0.59) K/uL Eos # (Auto) 0.01 (0-0.50) K/uL Baso # (Auto) 0.03 (0-0.2) K/uL Immature Gran # (Auto) 0.06 (0.01-0.20) K/uL Sodium 135 L (136-145) mmol/L Potassium 4.2 (3.5-5.1) mmol/L Chloride 103 (98-107) mmol/L Carbon Dioxide 25 (21-32) mmol/L Anion Gap 7 (3-11) BUN 14 (6-23) mg/dl Creatinine 0.96 (0.6-1.2) mg/dl Est Cr Clr Drug Dosing 52.4 ml/min Est GFR ( Amer) 63.8 ml/min Est GFR (Non-Af Amer) 55.1 ml/min BUN/Creatinine Ratio 14.6 (10-20) Glucose 114 H (70-99(Fasting)) mg/dl Calcium 9.3 (8.6-10.3) mg/dl Total Bilirubin 0.5 (0.2-1.0) mg/dl AST 28 (13-39) U/L ALT 20 (7-52) U/L Alkaline Phosphatase 96 (34-104) U/L Total Protein 6.8 (6.0-8.3) gm/dl Albumin 4.2 (3.4-5.0) gm/dl Globulin 2.6 (2.5-4.0) gm/dl Albumin/Globulin Ratio 1.6 (0.9-2) Lipase 24 (11-82) U/L Diagnostic Findings Hip/Pelvis X-Ray 04/12/23 15:00 XR hip RT 2V w pelvis HISTORY: 82 years-old Female fall, likely frx acute right hip pain status post fall COMPARISON: None TECHNIQUE: AP view of the pelvis with 2 views of the right hip FINDINGS: Moderate osteoarthritis of the hips. There is an acute fracture with probable mild comminution involving the right femoral neck which appears to be transcervical. Mild impaction with 2.3 cm of superior displacement of the distal fracture fragment. No dislocation or additional acute fracture identified. Arterial calcifications. IMPRESSION: 1. Acute mildly impacted and displaced transcervical right femoral fracture. 2. No dislocation. ACT 112: Negative or not required by law. The above report was generated using voice recognition software. It may contain grammatical, syntax or spelling errors. Electronically signed by: Abhishek Mota M.D. 04/12/2023 4:38 PM Ribs w/Chest X-Ray 04/12/23 15:00 XR ribs RT min 2V w CXR1V HISTORY: 82 years-old Female fall, R lateral rib pain acute right-sided rib pain status post fall COMPARISON: None TECHNIQUE: AP view of the chest with 4 views of the right ribs FINDINGS: Cardiomediastinal and hilar silhouettes are within normal limits. No pneumothorax, pleural effusion, airspace consolidation or pulmonary edema. Pleural thickening at the lung apices. Degenerative changes of the shoulders and spine. No acute displaced rib fractures identified. IMPRESSION: 1. No acute process of the chest. 2. No acute displaced rib fracture or pneumothorax identified. ACT 112: Negative or not required by law. The above report was generated using voice recognition software. It may contain grammatical, syntax or spelling errors. Electronically signed by: Abhishek Mota M.D. 04/12/2023 4:41 PM Wrist X-Ray 04/12/23 15:00 XR wrist RT min 3V routine HISTORY: 82 years-old Female pain post fall acute pain of the right wrist COMPARISON: None TECHNIQUE: 4 views of the right breast FINDINGS: Acute intra-articular distal radial mildly impacted fracture demonstrates a few millimeters of lateral displacement with 7 mm dorsal displacement and mild apex volar angulation. Acute minimally displaced ulnar styloid fracture. Moderate osteoarthritis with indeterminate subcentimeter bone fragment lateral to the trapezium. No acute carpal bone fracture identified. IMPRESSION: 1. Acute, mildly impacted and displaced comminuted intra-articular distal radial fracture. 2. Acute minimally displaced ulnar styloid fracture. ACT 112: Negative or not required by law. The above report was generated using voice recognition software. It may contain grammatical, syntax or spelling errors. Electronically signed by: Abhishek Mota M.D. 04/12/2023 4:37 PM
[2023-04-12] MEDS ORDERED: oxyCODONE HCL IR 5 MG TAB (IMMEDIATE RELEASE) PO PRN (21:55)
[2023-04-12] MEDS: ONDANSETRON INJ 2 MG/ML 2 ML VIAL IV PRN (22:28)
[2023-04-12] MEDS: MoRPHine SULFATE 4 MG/ML 1 ML CARP\\VIAL IV PRN (22:29)
[2023-04-12] MEDS ORDERED: HYDROmorphone INJ 0.5 MG/0.5 ML SYR IV STA (22:48)
[2023-04-12] MEDS: lisinopril 2.5 MG TAB PO SCH (23:47)
[2023-04-12] MEDS: EZETIMIBE 10 MG TAB PO SCH (23:47)
[2023-04-12] MEDS: ATORVASTATIN 40 MG TAB PO SCH (23:47)
[2023-04-12] MEDS: MONTELUKAST SODIUM 10 MG TABLET PO SCH (23:48)
[2023-04-12 23:58] LABS: Appearance Urine Clear (Clear); Bilirubin Urine Negative (Negative); Blood Urine Negative (Negative); Color Urine Yellow; Glucose Urine UA Negative (Negative); Ketones Urine Trace (Negative); Leukocyte Esterase Urine Negative (Negative); Nitrite Urine Negative (Negative); Protein Urine Negative (Negative); Specific Gravity Urine 1.022 (1.000-1.030); Urobilinogen Urine Negative (Negative); pH Urine 5.5 (4.5-7.5)
[2023-04-13] MEDS: PANTOprazole 40 MG TAB PO SCH ×2 (05:33→07:30)
[2023-04-13] MEDS ORDERED: TRANEXAMIC ACID / 0.7% NACL 1,000 MG/100 ML BAG IV SCH (06:00)
[2023-04-13] MEDS ORDERED: ceFAZolin 2000MG 2,000 MG/15 ML SYR IV SCH (06:00)
[2023-04-13] MEDS ORDERED: TRANEXAMIC ACID IV ONE (06:00)
[2023-04-13] MEDS ORDERED: SODIUM CHLORIDE 0.9% IV ONE (06:00)
[2023-04-13] MEDS: MoRPHine SULFATE 4 MG/ML 1 ML CARP\\VIAL IV PRN (06:01)
[2023-04-13] MEDS: ONDANSETRON INJ 2 MG/ML 2 ML VIAL IV PRN (06:07)
[2023-04-13] MEDS: CITALOPRAM 20 MG TAB PO SCH (07:29)
[2023-04-13] MEDS: amLODIPine BESYLATE 5 MG TAB PO SCH (07:29)
--- NOTE | 2023-04-13 08:16 | XRay Report ---
XR tibia fibula RT 2V CLINICAL HISTORY: pain secondary to fall. Right lower leg pain. COMPARISON STUDY: None. FINDINGS: The bones are osteopenic. No acute fracture or dislocation within the right tibia or fibula . Vascular calcifications are noted. No radiopaque foreign bodies. IMPRESSION: No fractures within the right lower leg. ACT 112: Negative or not required by law. Electronically signed by: Julián Del Toro M.D. 04/13/2023 8:15 AM
--- NOTE | 2023-04-13 08:43 | Orthopedic Progress Note ---
Date of Service April 13, 2023 Assessment & Plan (1) Closed right hip fracture: Plan: Patient was seen alongside with Dr. Prajapati today.Patient has been n.p.o. since midnight with the exception the was given a sip of water to take her morning medications by nurse. She will be taken to the OR today for a right hip arthroplasty. She [facility] will be given 2 g of Ancef preoperatively as well as TXA. Dr. Kim Turner marked surgical site. Anticipate postoperatively she will be participating in physical therapy. Patient and son offers no concerns and had no questions. Her right tibia and fibula x-ray were reviewed negative for any acute findings. Discussed this with patient and son. Patient and son verbalized understanding and are in agreement plan. (2) Right wrist fracture: Plan: Plan is in place. She has edematous digits. She was repositioned on a pillow. Advised on keeping elevated ice to this area will continue to monitor she was encouraged to wiggle digits frequently. Will reassess splint in the OR. Anticipate she will remain in the splint until further notice. She can continue to elevate the upper extremity and use ice as needed. She was advised nonweightbearing through the right upper extremity at this time. All questions were answered to patient and her son satisfaction. Patient and son verbalized understanding and are in agreement plan. Present on Admission?: Yes Admission and Anticipated Discharge Date Admission Date: April 12, 2023 Subjective Patient was seen this morning in bed. Nursing was present. She states she was having pain in her right groin rates 12/10. She states it is painful if she tries to even attempt to move and even just laying there. She states her right wrist feels okay rates pain as 3/10. She states she has been n.p.o. She denies any other pain in her left hip or lower extremity. She states she still has some pain over the lower leg on the right side. She denies any pain in her left upper extremity. She denies any paresthesia in the right lower extremity and right upper extremity. She denies any vision changes, headache, chest pain, shortness of breath. Review of Systems Review of Systems: Please refer to HPI Physical Exam Physical Exam: General: Patient is laying in bed she is alert and oriented x3 answering questions appropriately. She does not appear to be in any distress at this time. Irregularity/musculoskeletal: Continues to have ecchymosis over the anterior brooks this is unchanged from last night. Mild edema in the right lower extremity. She has tenderness over the tibia on the right and in the right groin. She is limited with range of motion in her right lower extremities externally rotated and shortened. She is able to move ankle up and down as well as toes. She is able to flex and extend left hip and knee without the diffic ulty. She is able to dorsiflex and plantarflex left ankle. Right upper extremity is elevated on a pillow. Splint is in place. She is edematous digits. They are normal in color and temperature. She is able to flex and extend thumb and digits. She is able to AB duct thumb and all digits. She is able to resist against this as well. Sensation is intact over right lower extremity and right upper extremity. Capillary refill of right digits is less than 2 seconds. Results & Data Vital Signs (Past 12 Hours) Vital Signs Temp Pulse Pulse Resp BP BP Pulse Ox 04/13/23 07:17 36.8 C 68 16 173/76 H 99 04/13/23 00:37 97 04/13/23 00:32 74 18 153/76 H 89 L 04/12/23 23:00 36.8 C 72 18 194/69 H 92 04/12/23 21:02 69 17 159/71 H 96 O2 Del Method O2 Flow Rate 04/13/23 07:17 Nasal Cannula 3 04/13/23 00:37 Nasal Cannula 3 04/13/23 00:32 Room Air 04/12/23 23:00 Room Air 04/12/23 21:02 Room Air Laboratory Results 04/12/23 04/12/23 04/12/23 Range/Units 23:48 14:39 14:39 WBC 13.02 H (4.8-10.8) K/ul RBC 4.65 (4.20-5.40) M/uL Hgb 13.9 (12.0-16.0) g/dl Hct 41.9 (37.0-47.0) % MCV 90.1 (80.0-100.0) fL MCH 29.9 (25.0-34.0) pg MCHC 33.2 (32.0-36.0) g/dL RDW Std Deviation 42.6 (36.4-46.3) fL RDW Coeff of Pamela 12.9 (11.5-14.5) % Plt Count 210 (130-400) K/uL MPV 10.3 (9.4-12.4) fL Immature Gran % (Auto) 0.5 % Neut % (Auto) 86.5 % Lymph % (Auto) 6.3 % [place] % (Auto) 6.4 % Eos % (Auto) 0.1 % Baso % (Auto) 0.2 % Neut # (Auto) 11.27 H (1.40-6.50) K/uL Lymph # (Auto) 0.82 L (1.2-3.4) K/uL [place] # (Auto) 0.83 H (0.11-0.59) K/uL Eos # (Auto) 0.01 (0-0.50) K/uL Baso # (Auto) 0.03 (0-0.2) K/uL Immature Gran # (Auto) 0.06 (0.01-0.20) K/uL Sodium 135 L (136-145) mmol/L Potassium 4.2 (3.5-5.1) mmol/L Chloride 103 (98-107) mmol/L Carbon Dioxide 25 (21-32) mmol/L Anion Gap 7 (3-11) BUN 14 (6-23) mg/dl Creatinine 0.96 (0.6-1.2) mg/dl Est Cr Clr Drug Dosing 52.4 ml/min Est GFR ( Amer) 63.8 ml/min Est GFR (Non-Af Amer) 55.1 ml/min BUN/Creatinine Ratio 14.6 (10-20) Glucose 114 H (70-99(Fasting)) mg/dl Calcium 9.3 (8.6-10.3) mg/dl Total Bilirubin 0.5 (0.2-1.0) mg/dl AST 28 (13-39) U/L ALT 20 (7-52) U/L Alkaline Phosphatase 96 (34-104) U/L Total Protein 6.8 (6.0-8.3) gm/dl Albumin 4.2 (3.4-5.0) gm/dl Globulin 2.6 (2.5-4.0) gm/dl Albumin/Globulin Ratio 1.6 (0.9-2) Lipase 24 (11-82) U/L Urine Color Yellow Urine Appearance Clear (Clear) Urine pH 5.5 (4.5-7.5) Ur Specific [place] 1.022 (1.000-1.030) Urine Protein Negative (Negative) Urine Glucose (UA) Negative (Negative) Urine Ketones Trace H (Negative) Urine Blood Negative (Negative) Urine Nitrite Negative (Negative) Urine Bilirubin Negative (Negative) Urine Urobilinogen Negative (Negative) Ur Leukocyte Esterase Negative (Negative) Diagnostic Findings Hip/Pelvis X-Ray 04/12/23 15:00 XR hip RT 2V w pelvis HISTORY: 82 years-old Female fall, likely frx acute right hip pain status post fall COMPARISON: None TECHNIQUE: AP view of the pelvis with 2 views of the right hip FINDINGS: Moderate osteoarthritis of the hips. There is an acute fracture with probable mild comminution involving the right femoral neck which appears to be transcervical. Mild impaction with 2.3 cm of superior displacement of the distal fracture fragment. No dislocation or additional acute fracture identified. Arterial calcifications. IMPRESSION: 1. Acute mildly impacted and displaced transcervical right femoral fracture. 2. No dislocation. ACT 112: Negative or not required by law. The above report was generated using voice recognition software. It may contain grammatical, syntax or spelling errors. Electronically signed by: Abhishek Mota M.D. 04/12/2023 4:38 PM Ribs w/Chest X-Ray 04/12/23 15:00 XR ribs RT min 2V w CXR1V HISTORY: 82 years-old Female fall, R lateral rib pain acute right-sided rib pain status post fall COMPARISON: None TECHNIQUE: AP view of the chest with 4 views of the right ribs FINDINGS: Cardiomediastinal and hilar silhouettes are within normal limits. No pneumothorax, pleural effusion, airspace consolidation or pulmonary edema. Pleural thickening at the lung apices. Degenerative changes of the shoulders and spine. No acute displaced rib fractures identified. IMPRESSION: 1. No acute process of the chest. 2. No acute displaced rib fracture or pneumothorax identified. ACT 112: Negative or not required by law. The above report was generated using voice recognition software. It may contain grammatical, syntax or spelling errors. Electronically signed by: Abhishek Mota M.D. 04/12/2023 4:41 PM Wrist X-Ray 04/12/23 15:00 XR wrist RT min 3V routine HISTORY: 82 years-old Female pain post fall acute pain of the right wrist COMPARISON: None TECHNIQUE: 4 views of the right breast FINDINGS: Acute intra-articular distal radial mildly impacted fracture demonstrates a few millimeters of lateral displacement with 7 mm dorsal displacement and mild apex volar angulation. Acute minimally displaced ulnar styloid fracture. Moderate osteoarthritis with indeterminate subcentimeter bone fragment lateral to the trapezium. No acute carpal bone fracture identified. IMPRESSION: 1. Acute, mildly impacted and displaced comminuted intra-articular distal radial fracture. 2. Acute minimally displaced ulnar styloid fracture. ACT 112: Negative or not required by law. The above report was generated using voice recognition software. It may contain grammatical, syntax or spelling errors. Electronically signed by: Abhishek Mota M.D. 04/12/2023 4:37 PM Tibia/Fibula X-Ray 04/12/23 21:41 XR tibia fibula RT 2V CLINICAL HISTORY: pain secondary to fall. Right lower leg pain. COMPARISON STUDY: None. FINDINGS: The bones are osteopenic. No acute fracture or dislocation within the right tibia or fibula. Vascular calcifications are noted. No radiopaque foreign bodies. IMPRESSION: No fractures within the right lower leg. ACT 112: Negative or not required by law. Electronically signed by: Julián Del Toro M.D. 04/13/2023 8:15 AM
[2023-04-13 09:00] LABS: Basophils # (auto) 0.01 K/uL (0-0.2); Basophils % (auto) 0.1 %; Eosinophils # (auto) 0.01 K/uL (0-0.50); Eosinophils % (auto) 0.1 %; Hematocrit (blood only) 38.9 % (37.0-47.0); Immature Granulocytes # (auto) 0.04 K/uL (0.01-0.20); Immature Granulocytes % (auto) 0.4 %; Lymphocytes % (auto) 11.2 %; Mean Corpuscular Hemoglobin 29.4 pg (25.0-34.0); Mean Corpuscular Hgb Conc 33.4 g/dL (32.0-36.0); Mean Platelet Volume 10.3 fL (9.4-12.4); Monocytes # (auto) 1.08 K/uL (0.11-0.59); Neutrophils # (auto) 7.54 K/uL (1.40-6.50); Neutrophils % (auto) 77.2 %; Platelet Count 184 K/uL (130-400); RDW Coefficient of Variation 13.2 % (11.5-14.5); RDW Standard Deviation 43.1 fL (36.4-46.3); Red Blood Count 4.42 M/uL (4.20-5.40); White Blood Count 9.78 K/ul (4.8-10.8)
[2023-04-13] MEDS ORDERED: fentaNYL citrate PF 100 MCG/2 ML VIAL ONE ×2 (09:03)
[2023-04-13] MEDS ORDERED: MIDAZOLAM HCL 1 MG/ML 2ML VIAL ONE (09:03)
[2023-04-13 09:06] LABS: BUN Creatinine Ratio 16.7 (10-20); Calcium 9.1 mg/dl (8.6-10.3); Creatinine Clr Calc Pharmacy 54.1 ml/min; Est GFR (African American) 82.1 ml/min; Est GFR (Non-African American) 70.8 ml/min; Potassium 4.2 mmol/L (3.5-5.1)
[2023-04-13] MEDS ORDERED: ACETAMINOPHEN 500 MG TAB PO ONE (09:07)
[2023-04-13] MEDS ORDERED: ACETAMINOPHEN 1,000 MG/100 ML VIAL IV STA (09:11)
[2023-04-13] MEDS ORDERED: ONDANSETRON INJ 2 MG/ML 2 ML VIAL IV PRN (09:37)
[2023-04-13] MEDS ORDERED: ePHEDrine sulfate 50 MG/ML AMP IV PRN (09:37)
[2023-04-13] MEDS ORDERED: HYDROmorphone INJ 2 MG/ML SYR/VIAL IV PRN (09:37)
[2023-04-13] MEDS ORDERED: ATROPINE SULFATE 0.1 MG/ML 10ML SYR IV PRN (09:37)
[2023-04-13] MEDS ORDERED: fentaNYL citrate PF 100 MCG/2 ML VIAL IV PRN (09:37)
--- NOTE | 2023-04-13 09:37 | Anesthesiology Consultation ---
Date of Service April 13, 2023 Assessment & Plan Chart Review Chart Review: Acceptable Risk for Surgery and Patient NOT seen in Pre Admission Testing History Surgery Operation Date: 04/13/23 09:00 Proposed Procedures p Right Hip Hemiarthroplasty(Right) - Aram Prajapati MD Height/Weight Height: 5 ft 7 in Weight: 73.9 kg Allergies Allergy/AdvReac Type Severity Reaction Status Date / Time No Known Allergies Allergy Unverified 04/12/23 21:13 Medications Home Medications Medication Instructions Recorded Confirmed Last Taken amlodipine 5 mg tablet 5 mg PO DAILY 04/12/23 04/12/23 Unknown atorvastatin 80 mg tablet 80 mg PO HS 04/12/23 04/12/23 Unknown citalopram 10 mg tablet 10 mg PO QAM 04/12/23 04/12/23 Unknown ezetimibe 10 mg tablet (Zetia) 10 mg PO QPM 04/12/23 04/12/23 Unknown furosemide 20 mg tablet 20 mg PO DIRECTED 04/12/23 04/12/23 Unknown hydrocodone 5 mg-acetaminophen 325 1 tab PO QID PRN Pain 04/12/23 04/12/23 Unknown mg tablet lisinopril 2.5 mg tablet 2.5 mg PO PM 04/12/23 04/12/23 Unknown montelukast 10 mg tablet 10 mg PO PM 04/12/23 04/12/23 Unknown ondansetron 4 mg disintegrating 4 mg PO Q6H PRN Nausea And Vomiting 04/12/23 04/12/23 Unknown tablet pantoprazole 40 mg tablet,delayed 40 mg PO DAILYBB 04/12/23 04/12/23 Unknown release Active Medications Generic Name Dose Route Start Last Admin Trade Name Freq PRN Reason Stop Dose Admin Amlodipine Besylate 5 mg 04/13/23 09:00 04/13/23 07:29 Amlodipine Besylate 5 Mg Tab PO 05/13/23 08:59 5 mg DAILY ROSE MARIE Administration Atorvastatin Calcium 80 mg 04/12/23 21:55 04/12/23 23:47 Atorvastatin 40 Mg Tab PO 05/12/23 21:54 80 mg HS ROSE MARIE Administration Citalopram Hydrobromide 10 mg 04/13/23 09:00 04/13/23 07:29 Citalopram 20 Mg Tab PO 05/13/23 08:59 10 mg QAM ROSE MARIE Administration Ezetimibe 10 mg 04/12/23 21:55 04/12/23 23:47 Ezetimibe 10 Mg Tab PO 05/12/23 21:54 10 mg QPM ROSE MARIE Administration Lisinopril 2.5 mg 04/12/23 21:55 04/12/23 23:47 Lisinopril 2.5 Mg Tab PO 05/12/23 21:54 2.5 mg PM ROSE MARIE Administration Montelukast Sodium 10 mg 04/12/23 21:55 04/12/23 23:48 Montelukast Sodium 10 Mg Tablet PO 05/12/23 21:54 10 mg PM ROS EMARIE Administration Morphine Sulfate 4 mg 04/12/23 21:55 04/13/23 06:01 Morphine Sulfate 4 Mg/Ml 1 Ml Carp\Vial IV 04/26/23 21:54 4 mg Q4 PRN Administration Severe Pain (Scale 7, 8, 9,10) Ondansetron HCl 4 mg 04/12/23 18:05 04/13/23 06:07 Ondansetron Inj 2 Mg/Ml 2 Ml Vial IV 05/12/23 18:04 4 mg Q6H PRN Administration Nausea Pantoprazole Sodium 40 mg 04/13/23 06:30 04/13/23 07:30 Pantoprazole 40 Mg Tab PO 05/13/23 06:29 40 mg DAILYBB ROSE MARIE Administration NPO Date Last Intake of Fluids: 04/12/23 Time Last Intake of Fluids: 23:59 Date Last Intake of Solids: 04/12/23 Time Last Intake of Solids: 23:59 Past Medical History Medical History Chronic congestive heart failure Coronary artery disease involving [place] coronary artery of [place] heart without angina pectoris Essential (primary) hypertension Hyperlipidemia Past Family History Family History Brother Coronary heart disease Brother Coronary heart disease Sister Coronary heart disease Father Lung disease Mother Breast cancer Past Surgical History Surgical History H/O: hysterectomy History of ankle surgery Social History Smoking Status: Never smoker Do You Dip or Chew Tobacco: No Hx Alcohol Use: No Hx Substance Use: No substance use type: does not use Physical Exam Vital Signs Last Vital Signs Temp 36.8 C 08/20/23 07:17 Pulse 68 04/13/23 07:17 Resp 16 04/13/23 07:17 BP 173/76 H 04/13/23 07:17 Pulse Ox 99 04/13/23 07:17 O2 Del Method Nasal Cannula 04/13/23 07:17 O2 Flow Rate 3 04/13/23 07:17 Testing Laboratory Results 04/13/23 08:32 04/13/23 08:32 Urine Color Yellow 04/12/23 23:48 Urine Appearance Clear (Clear) 04/12/23 23:48 Urine pH 5.5 (4.5-7.5) 04/12/23 23:48 Ur Specific [place] 1.022 (1.000-1.030) 04/12/23 23:48 Urine Protein Negative (Negative) 04/12/23 23:48 Urine Glucose (UA) Negative (Negative) 04/12/23 23:48 Urine Ketones Trace (Negative) H 04/12/23 23:48 Urine Nitrite Negative (Negative) 04/12/23 23:48 Ur Leukocyte Esterase Negative (Negative) 04/12/23 23:48
[2023-04-13] MEDS ORDERED: FAMOTIDINE/PF 20 MG/2 ML VIAL IV ONE (09:51)
[2023-04-13] MEDS ORDERED: ceFAZolin 330 MG/ML 1 GM VIAL ONE ×2 (10:16→10:18)
[2023-04-13] MEDS ORDERED: PROPOFOL IV EMULSION 10 MG/ML 20 ML VIAL IV ONE (10:41)
[2023-04-13] MEDS ORDERED: ONDANSETRON INJ 2 MG/ML 2 ML VIAL ONE (10:41)
[2023-04-13] MEDS ORDERED: LIDOCAINE 2% 2 ML VIAL/AMP(20MG/ML) INFIL ONE (10:41)
[2023-04-13] MEDS ORDERED: DEXAMETHASONE SOD INJ 4 MG/ML VIAL ONE (10:41)
[2023-04-13] MEDS ORDERED: SUGAMMADEX SODIUM 200 MG/2 ML VIAL IV ONE (10:41)
[2023-04-13] MEDS ORDERED: ROCURONIUM BROMIDE 10 MG/ML 5 ML VIAL IV ONE (10:42)
[2023-04-13] MEDS ORDERED: ePHEDrine sulfate 50 MG/ML SYR ONE (11:36)
[2023-04-13] MEDS ORDERED: THROMBIN 5000 UNITS KIT TOP ONE (11:43)
[2023-04-13] MEDS ORDERED: BUPIVACAINE 0.5 % 5 MG/1 ML MPF 30ML VIAL INJ ONE (12:22)
[2023-04-13] MEDS ORDERED: LIDOCAINE 1% LOCAL 20 ML VIAL INJ ONE (12:28)
--- NOTE | 2023-04-13 13:01 | Operative Report ---
Post Operative Report Pre & Post Diagnosis Operation Date: 04/13/23 09:00 <No data on this case meets the specified criteria> right hip femoral neck fracture I identified the patient and participated in the time-out.: Yes Procedure Operation Date: 04/13/23 09:00 <No data on this case meets the specified criteria> right hip hemiarthroplasty Surgeon Aram Prajapati MD Machine Maintenance Mechanic alka sommer. no resident or fellow available Estimated Blood Loss 50 Findings Consistent with Post-Op Diagnosis Specimens femoral head Anesthesia Type General Regional Complications none Disposition Accompanied Patient To Recovery: No Disposition: Recovery Room Indications Lisandra is 82. She fell down and broke her right wrist and right hip. She has a prior history of a right wrist fracture. There is a apex volar angulated fracture with angulation and not a lot of displacement. Immobilized in a sugar- tong splint. I think suitable for nonoperative management. She has a displaced femoral neck fracture I recommended hemiarthroplasty she agreed to proceed. Description of Procedure Informed consent. Patient identified. Operative site identified as right hip. I marked with my initials. Surgical timeout performed. Preop antibiotics and TXA given. Taken to the OR positioned lateral decubitus with right side up after administration of anesthetic. Axillary roll inserted. Bony prominences inspected and padded. Stolberg positioner utilized. The right hip and leg were scrubbed prior to routine prep and drape. DVT prophylaxis with SCDs intraoperatively on the nonoperative leg. Postoperatively mobility SCDs and chemoprophylaxis. Posterior approach to the hip was made with approximately the 20 cm incision. Large soft tissue envelope. Electrocautery down to the subcutaneous tissues. Hemostasis with electrocautery. IT band and gluteal fascia split in line with the incision. Flocculent trochanteric bursitis debrided. The short external rotators were elevated off of the posterior hip. They were not very well- defined and were fairly adherent to the underlying capsule. I therefore elevated them up as one single layer and did a capsulotomy. This was tagged for later repair. The inferior capsule was released. The hip was then dislocated and the femoral head removed and sized to a 43. The trial fit well. The acetabulum looked normal labrum intact circumferentially. Ligamentum teres debrided. The leg was placed into the 9090 position. A provisional femoral neck cut was made using the guide just under 1 fingerbreadth above the lesser trochanter. This was followed by the box cutting guide canal finder and lateralizing reamer. Broaching began at size 10 and proceeded up to 13 in about 20 to 30 degrees of anteversion. I could not completely bury the 13 broach sat up about 5 mm. I went ahead and planed the calcar and trialed off of the 12 which gave good stability. The canal was plugged at the appropriate length and then prepared with pulsatile lavage thrombin and a tampon for drying. 2 bags of Simplex P cement were mixed and while in a semidoughy state retrograde fill with pressurization and the implant was inserted against the lateral cortex in 20 to 30 degrees of anteversion and held until the cement hardened. Subsequently I retrialed and found that the +7.5 neck length gave the best stability with negative shuck test in extension and mid position. We in neutral position the hip could be internally rotated 45 degrees. In maximum adduction hip could be internally rotated 30 degrees. Copious pulsatile lavage was performed. The capsule and short external rotators were repaired back to the hip abductor mechanism and greater trochanter with #1 Ethibond. The gluteal fascia was repaired in an interrupted fashion with #1 Vicryl and the skin was closed in layers with 0 and 2-0 Vicryl followed by elenita on the skin. A soft sterile dressing was applied Xeroform 4 x 4's ABD foam tape. Patient was returned to supine position with her right hip abducted and an abduction pillow was placed. She was then awakened from anesthesia without difficulty and taken to the recovery room in stable condition. Prior to closure 1% lidocaine and half percent Marcaine were injected into the skin and subcutaneous tissues. She was taken to recovery in stable condition. The resected femoral head was sent for specimen. The femoral head looked normal. Counts were correct blood loss is estimated to be 50 cc. At the conclusion of the operation spoke the patient's family informed them of my findings. Postop instructions were discussed. We will plan for acute care rehab versus extended care facility. She may weight-bear as tolerated and will have total hip precautions and we will start Eliquis the morning after surgery. She will receive a routine course of postop IV antibiotics. She will need a platform walker. The Kristen LD fracture system was utilized. A size 12 cemented stem with a 11 distal centralizer which was cemented in place. A 44 mm shell and a 28 mm head with a +7 neck length I attest to the content of the Intraoperative Record and any orders documented therein. Any exceptions are noted below.
--- NOTE | 2023-04-13 13:06 | Operative Report ---
Post Operative Report Pre & Post Diagnosis Operation Date: 04/13/23 09:00 Pre-Op Diagnosis: Closed right hip fracture Post-Op Diagnosis: Closed right hip fracture I identified the patient and participated in the time-out.: Yes Procedure Operation Date: 04/13/23 09:00 Actual Procedures p Right Hip Hemiarthroplasty, Cemented(Right) - Aram Prajapati MD Surgeon Dr. Prajapati Personal Computer Network Engineer Edna Verdugo PA-C no fellow or resident available. Estimated Blood Loss 50 Findings Consistent with Post-Op Diagnosis Specimens femoral head Complications none Description of Procedure I was present during the entire case. I assisted with prepping, draping, retracting, hemostasis, wound closure, dressing application, and transitioning to liter. Please refer to full operative report by Dr. Prajapati for details. Pt left the OR in stable condition I attest to the content of the Intraoperative Record and any orders documented therein. Any exceptions are noted below.
[2023-04-13] MEDS ORDERED: oxyCODONE/ACETAMINOPHEN 5mg/325mg TAB PO PRN (13:26)
[2023-04-13] MEDS ORDERED: traMADol HCL 50 MG TABLET PO PRN (13:26)
--- NOTE | 2023-04-13 14:07 | Anesthesiology Progress Note ---
Date of Service April 13, 2023 Anesthesia Post Procedure Vital Signs Vital Signs: Temp Pulse Pulse Pulse Resp BP BP 04/13/23 13:50 62 14 139/57 L 04/13/23 13:40 62 16 126/61 04/13/23 13:30 63 16 129/57 L 04/13/23 13:20 62 12 134/60 04/13/23 13:10 66 14 137/61 04/13/23 13:06 36.6 C 68 16 124/63 04/13/23 07:30 04/13/23 07:17 36.8 C 68 16 173/76 H 04/13/23 00:37 04/13/23 00:32 74 18 153/76 H 04/12/23 23:00 36.8 C 72 18 194/69 H 04/12/23 21:02 69 17 159/71 H 04/12/23 19:19 65 20 172/79 H 04/12/23 15:30 71 16 04/12/23 15:00 64 16 04/12/23 14:35 66 20 04/12/23 14:35 177/83 H 04/12/23 14:34 68 19 04/12/23 15:04 04/12/23 14:57 63 04/12/23 14:16 36.7 C 65 21 177/83 H Pulse Ox O2 Del Method O2 Flow Rate 04/13/23 13:50 97 Nasal Cannula 2 04/13/23 13:40 99 Nasal Cannula 2 04/13/23 13:30 99 Oxymask 2 04/13/23 13:20 100 Oxymask 6 04/13/23 13:10 98 Oxymask 6 04/13/23 13:06 100 Oxymask 6 04/13/23 07:30 Nasal Cannula 3 04/13/23 07:17 99 Nasal Cannula 3 04/13/23 00:37 97 Nasal Cannula 3 04/13/23 00:32 89 L Room Air 04/12/23 23:00 92 Room Air 04/12/23 21:02 96 Room Air 04/12/23 19:19 95 Room Air 04/12/23 15:30 97 Room Air 04/12/23 15:00 97 04/12/23 14:35 97 04/12/23 14:35 04/12/23 14:34 04/12/23 15:04 97 Room Air 08/19/23 14:57 04/12/23 14:16 96 Room Air Pain Intensity Right Hip: Pain Intensity: 8 Transfer of Care Handoff Completed per policy Notes Mental Status: alert / awake / arousable and participated in evaluation Patient Amnestic to Procedure: Yes Nausea / Vomiting: adequately controlled Pain: adequately controlled Airway Patency, RR, SpO2: stable & adequate BP & HR: stable & adequate Hydration State: stable & adequate Anesthetic Complications: no major complications apparent and Pt Satisfied with anesthetic care
--- NOTE | 2023-04-13 14:20 | XRay Report ---
AP PELVIS, CROSSTABLE LATERAL RIGHT HIP History: Right total hip arthroplasty. Right hip fracture. Postop. FINDINGS: The patient is status post a right hip hemiarthroplasty. The hardware is intact. No fractur e or dislocation. Skin elenita are in place. IMPRESSION: Right hip hemiarthroplasty. No evidence for hardware complication ACT 112: Negative or not required by law. Electronically signed by: Julián Del Toro M.D. 04/13/2023 2:19 PM
[2023-04-13] MEDS ORDERED: ONDANSETRON 4 MG OD TAB PO PRN (14:44)
[2023-04-13] MEDS: SODIUM CHLORIDE 0.9% 1000ML 1,000 ML IV SCH (14:49)
[2023-04-13] MEDS: CHOLECALCIFEROL 5,000 UNITS 125 MCG TAB PO SCH (15:25)
[2023-04-13] MEDS: ACETAMINOPHEN 500 MG TAB PO SCH ×2 (15:25→23:03)
--- NOTE | 2023-04-13 17:22 | Hospitalist Progress Note ---
Date of Service April 13, 2023 Assessment & Plan (1) Closed right hip fracture: Plan: d/t mechanical fall ortho consulted- s/p surgery on 04/13, POD#0 continue analgesia (2) Right wrist fracture: Plan: fx as above under imaging ortho consulted, appreciate input, will follow recs continue analgesia, continue splint for now (3) Chronic congestive heart failure: Plan: pt is unsure what type of CHF she has continue furosemide 20 mg daily when BP can tolerate- currently soft post-op currently euvolemic pt does not know who her bioengineer is, has only seen them once (4) Coronary artery disease involving [place] coronary artery of [place] heart without angina pectoris: Plan: stable continue statin therapy pt is not on ASA or BB, unclear why, presumably did not tolerate pt is unsure who her bioengineer is- consider consult for med optimization (5) Neutrophilic leukocytosis: Plan: Li[place] reactive d/t bone fxs Continue to monitor (6) Hyperlipidemia: Plan: continue statin therapy cardiac diet (7) Essential (primary) hypertension: Plan: holding amlodipine 5 mg daily, lisinopril 2.5 mg daily as post op BP remains soft holding furosemide as above under chf cardiac diet Admission and Anticipated Discharge Date Admission Date: April 12, 2023 Subjective Pt seen this AM before surgery. Stated that her pain meds were starting to wear off. Denied any other acute concerns. Review of Systems Review of Systems: All systems reviewed & are unremarkable except as noted in Subjective Physical Exam Physical Exam: General: Alert, oriented. No acute distress Skin: No noted rashes or bruises Psych: Appropriate mood and affect Neuro: In pain HEENT: NC/AT CV: RRR, Normal s1, s2. Resp: no increased effort of breathing. Abdomen: Soft, nontender, nondistended. No guarding. No organomegaly appreciated. Extremities: No edema in lower extremities bilaterally. Results & Data Results & Data Vital Signs (Past 12 Hours) Vital Signs Temp Pulse Pulse Resp BP Pulse Ox O2 Del Method 04/13/23 16:38 66 16 92/50 L 98 Nasal Cannula 04/13/23 15:45 75 16 90/59 L 98 Nasal Cannula 04/13/23 15:14 69 16 115/64 98 Room Air, Nasal Cannula 04/13/23 14:10 63 14 111/53 L 97 Nasal Cannula 04/13/23 14:20 67 15 113/58 L 99 Nasal Cannula 04/13/23 14:00 36.3 C L 66 14 113/57 L 97 Nasal Cannula 04/13/23 13:50 62 14 139/57 L 97 Nasal Cannula 04/13/23 13:40 62 16 126/61 99 Nasal Cannula 04/13/23 13:30 63 16 129/57 L 99 Oxymask 04/13/23 13:20 62 12 134/60 100 Oxymask 04/13/23 13:10 66 14 137/61 98 Oxymask 04/13/23 13:06 36.6 C 68 16 124/63 100 Oxymask 04/13/23 07:30 Nasal Cannula 04/13/23 07:17 36.8 C 68 16 173/76 H 99 Nasal Cannula O2 Flow Rate 04/13/23 16:38 2 04/13/23 15:45 2 04/13/23 15:14 2 04/13/23 14:10 2 04/13/23 14:20 2 04/13/23 14:00 2 04/13/23 13:50 2 04/13/23 13:40 2 04/13/23 13:30 2 04/13/23 13:20 6 04/13/23 13:10 6 04/13/23 13:06 6 04/13/23 07:30 3 04/13/23 07:17 3 (1) Closed right hip fracture Encounter type: initial encounter Qualified Code(s): S72.001A - Fracture of unspecified part of neck of right femur, initial encounter for closed fracture (2) Right wrist fracture Encounter type: initial encounter Fracture type: closed Qualified Code(s): S62.101A - Fracture of unspecified carpal bone, right wrist, initial encounter for closed fracture
[2023-04-13] MEDS: ceFAZolin 2000MG 2,000 MG/15 ML SYR IV SCH (18:57)
[2023-04-13] MEDS ORDERED: TRANEXAMIC ACID / 0.7% NACL 1,000 MG/100 ML BAG IV ONE (19:22)
[2023-04-13] MEDS: ONDANSETRON 4 MG OD TAB PO PRN (19:24)
[2023-04-13] MEDS ORDERED: COUGH DROP (SUGAR FREE) LOZ 24 LOZ/1 BOX BUCCAL ONE (19:51)
[2023-04-13] MEDS ORDERED: PROMETHAZINE HCL 12.5 MG in SODIUM CHLORIDE 0.9% 50 ML IV PRN (20:02)
[2023-04-13] MEDS ORDERED: PROMETHAZINE HCL 12.5 MG in SODIUM CHLORIDE 0.9% 50 ML IV STA (20:02)
[2023-04-13] MEDS: MONTELUKAST SODIUM 10 MG TABLET PO SCH (21:03)
[2023-04-13] MEDS: EZETIMIBE 10 MG TAB PO SCH (21:03)
[2023-04-13] MEDS: ATORVASTATIN 40 MG TAB PO SCH (21:03)
[2023-04-14] MEDS: SODIUM CHLORIDE 0.9% 1000ML 1,000 ML IV SCH (03:24)
[2023-04-14] MEDS: ceFAZolin 2000MG 2,000 MG/15 ML SYR IV SCH (03:24)
[2023-04-14] MEDS: ONDANSETRON 4 MG OD TAB PO PRN (03:28)
[2023-04-14] MEDS: HYDROmorphone INJ 0.5 MG/0.5 ML SYR IV PRN ×3 (03:28→20:39)
[2023-04-14] MEDS: ACETAMINOPHEN 500 MG TAB PO SCH ×3 (05:42→23:40)
[2023-04-14] MEDS: PANTOprazole 40 MG TAB PO SCH (05:42)
[2023-04-14 06:40] LABS: Basophils # (auto) 0.01 K/uL (0-0.2); Basophils % (auto) 0.1 %; Hematocrit (blood only) 29.5 % (37.0-47.0); Hemoglobin 9.8 g/dl (12.0-16.0); Immature Granulocytes # (auto) 0.05 K/uL (0.01-0.20); Immature Granulocytes % (auto) 0.4 %; Lymphocytes # (auto) 1.03 K/uL (1.2-3.4); Mean Corpuscular Hemoglobin 29.8 pg (25.0-34.0); Mean Corpuscular Hgb Conc 33.2 g/dL (32.0-36.0); Mean Corpuscular Volume 89.7 fL (80.0-100.0); Mean Platelet Volume 10.4 fL (9.4-12.4); Monocytes # (auto) 1.37 K/uL (0.11-0.59); Neutrophils # (auto) 8.97 K/uL (1.40-6.50); Neutrophils % (auto) 78.5 %; Platelet Count 143 K/uL (130-400); RDW Coefficient of Variation 13.4 % (11.5-14.5); RDW Standard Deviation 44.1 fL (36.4-46.3); Red Blood Count 3.29 M/uL (4.20-5.40); White Blood Count 11.43 K/ul (4.8-10.8)
[2023-04-14 06:54] LABS: BUN Creatinine Ratio 16.9 (10-20); Calcium 8.1 mg/dl (8.6-10.3); Creatinine Clr Calc Pharmacy 50.8 ml/min; Est GFR (African American) 76.1 ml/min; Est GFR (Non-African American) 65.7 ml/min; Potassium 4.2 mmol/L (3.5-5.1)
[2023-04-14] MEDS: oxyCODONE HCL IR 5 MG TAB (IMMEDIATE RELEASE) PO PRN ×3 (07:54→19:20)
[2023-04-14] MEDS: CITALOPRAM 20 MG TAB PO SCH (07:54)
[2023-04-14] MEDS: CHOLECALCIFEROL 5,000 UNITS 125 MCG TAB PO SCH (07:55)
[2023-04-14] MEDS ORDERED: APIXABAN 2.5 MG TAB PO SCH (09:00)
--- NOTE | 2023-04-14 09:12 | Electrocardiogram Report ---
Test Reason : Blood Pressure : / mmHG Vent. Rate : 065 BPM Atrial Rate : 065 BPM P-R Int : 162 ms QRS Dur : 082 ms QT Int : 392 ms P-R-T Axes : 054 -24 067 degrees QTc Int : 407 ms Normal sinus rhythm Normal ECG No previous ECGs available Confirmed by David Jones ([id number]) on 04/14/2023 9:12:39 AM Referred By: REFERRED SELF Confirmed By:David Jones
--- NOTE | 2023-04-14 09:23 | Orthopedic Progress Note ---
Date of Service April 14, 2023 Assessment & Plan (1) Closed right hip fracture: Plan POD1 s/p Right hip hemiarthroplasty by Dr. Prajapati, Right wrist intra- articular, displaced, distal radius and ulnar styloid fracture WBAT with walker right lower extremity, nonweightbearing right upper extremity Abduction pillow and posterior hip precautions PT/OT Diet - regular Frequently ice and elevate DVT prophylaxis: Eliquis 2.5 mg twice a day, compression stockings and SCDs in the hospital Pain control: Tylenol 1000mg q 8hrs, oxycodone 5-10mg q4-6 hrs for moderate pain, Dilaudid 0.5mg IV for severe/breakthrough pain Dressing: Please leave dressing intact. Will change dressing and place Prevena likely tomorrow when patient's pain better controlled Case management for discharge needs patient may require short-term rehab facility. Follow up as scheduled with [facility] in 2 weeks for PSS Admission and Anticipated Discharge Date Admission Date: April 12, 2023 Subjective Pt was seen and examined bedside. POD #1 s/p Right hip hemiarthroplasty. Patient says that she is having a lot of pain and she just took a pain pill. She was a little bit nauseous last night. She says she ate some toast this morning. Vitals are stable. Labs unremarkable. X-rays show normal post operative changed. She is urinating but she has not had a bowel movement yet. She has not yet worked with physical therapy. Pt denies F/C, SOB, CP. She denies any numbness or tingling down her leg or her right upper arm. No calf pain. Physical Exam Physical Exam: General: Pt laying in hospital bed AA&O, in NAD, calm and cooperative during exam Right Lower Extremity: Abduction pillow in place. SCDs bilaterally in place. Dressing in tact and not saturated. Thigh soft and compressible. Patient is able to slightly dorsiflex and plantarflex her ankle. She is able to wiggle all of her toes. She has some tenderness when palpating around her ankle. She is able to very slightly bend and extend her knee. She does not tolerate much passive motion of her hip at this time. Pt has 3/5 strength with DF/PF. Calf supple and non tender. NVI with sensation to light touch distally and good distal pulses present. Lower extremity noted to have good color and temperature. Right upper extremity: Sugar-tong splint is clean and intact. Fitting appropriately and patient reports comfort. Moderate swelling in her fingers. Skin warm and pink. Capillary refill less than 2 seconds. Sensation intact distally to light touch. She is able to wiggle all 5 of her digits. Results & Data Vital Signs (Past 12 Hours) Vital Signs Temp Pulse Resp BP Pulse Ox O2 Del Method 04/14/23 07:10 36.8 C 71 15 115/65 93 Room Air 04/14/23 03:28 36.8 C 71 18 131/69 95 Room Air 04/13/23 23:32 36.4 C L 67 18 120/65 96 Room Air Laboratory Results 04/14/23 04/14/23 04/14/23 Range/Units 06:05 06:05 06:05 WBC 11.43 H (4.8-10.8) K/ul RBC 3.29 L (4.20-5.40) M/uL Hgb 9.8 L D (12.0-16.0) g/dl Hct 29.5 L (37.0-47.0) % MCV 89.7 (80.0-100.0) fL MCH 29.8 (25.0-34.0) pg MCHC 33.2 (32.0-36.0) g/dL RDW Std Deviation 44.1 (36.4-46.3) fL RDW Coeff of Pamela 13.4 (11.5-14.5) % Plt Count 143 (130-400) K/uL MPV 10.4 (9.4-12.4) fL Immature Gran % (Auto) 0.4 % Neut % (Auto) 78.5 % Lymph % (Auto) 9.0 % Carbon % (Auto) 12.0 % Eos % (Auto) 0.0 % Baso % (Auto) 0.1 % Neut # (Auto) 8.97 H (1.40-6.50) K/uL Lymph # (Auto) 1.03 L (1.2-3.4) K/uL Carbon # (Auto) 1.37 H (0.11-0.59) K/uL Eos # (Auto) 0.00 (0-0.50) K/uL Baso # (Auto) 0.01 (0-0.2) K/uL Immature Gran # (Auto) 0.05 (0.01-0.20) K/uL Sodium 136 (136-145) mmol/L Potassium 4.2 (3.5-5.1) mmol/L Chloride 106 (98-107) mmol/L Carbon Dioxide 25 (21-32) mmol/L Anion Gap 5 (3-11) BUN 14 (6-23) mg/dl Creatinine 0.83 (0.6-1.2) mg/dl Est Cr Clr Drug Dosing 50.8 ml/min Est GFR ( Amer) 76.1 ml/min Est GFR (Non-Af Amer) 65.7 ml/min BUN/Creatinine Ratio 16.9 (10-20) Glucose 139 H (70-99(Fasting)) mg/dl Calcium 8.1 L (8.6-10.3) mg/dl 25-OH Vitamin D Total 29.1 L (30-100) ng/ml Diagnostic Findings AP PELVIS, CROSSTABLE LATERAL RIGHT HIP History: Right total hip arthroplasty. Right hip fracture. Postop. FINDINGS: The patient is status post a right hip hemiarthroplasty. The hardware is intact. No fracture or dislocation. Skin elenita are in place. IMPRESSION: Right hip hemiarthroplasty. No evidence for hardware complication (1) Closed right hip fracture Encounter type: initial encounter Qualified Code(s): S72.001A - Fracture of unspecified part of neck of right femur, initial encounter for closed fracture
[2023-04-14 14:47] LABS: Hematocrit (blood only) 31.1 % (37.0-47.0); Hemoglobin 9.9 g/dl (12.0-16.0)
--- NOTE | 2023-04-14 15:44 | Hospitalist Progress Note ---
Date of Service April 14, 2023 Assessment & Plan (1) Closed right hip fracture: Plan Closed right hip fracture:d/t mechanical fall. ortho consulted- s/p surgery on 04/13 by Aram Prajapati MD. Eliquis as DVT Px per Ortho. Monitor HnH closely. c/w analgesia, PT/OT. Per ortho, WBAT with walker right lower extremity, nonweightbearing right upper extremity. f/u ortho on dc. Acute Blood loss anemia, likely 2/2 operative loss: Hb drop from above 13 to just below 10. HnH repeated today, stable. Eliquis resumed, d/w ortho. Right wrist fracture: Orthopedics on board, currently on splint. Continue analgesia. Vitamin D deficiency: Vitamin D level 29.1, vitamin D started at 5000 units daily. Transition to 1000 units daily upon discharge. Other chronic medical conditions: Continue with/resume home meds as and when able Chronic congestive heart failure: Patient unsure about the type of CHF she has, continue home Lasix. Currently euvolemic. Coronary artery disease: Stable, continue statin therapy. Neutrophilic leukocytosis: Likely reactive due to bone fracture, continue to monitor. HLD: Continue statin therapy HTN: Home amlodipine and lisinopril on hold. Resume as able postoperatively when blood pressure starts to improve. DVT prophylaxis: Patient on Eliquis 2.5 Mg twice daily PT/OT, CM to assist with DC planning Dispo: Pending orthopedics clearance Admission and Anticipated Discharge Date Admission Date: April 12, 2023 Subjective Patient seen and examined at bedside as a follow-up of closed right hip fracture, right wrist fracture. Patient was sitting up in chair, on room air, NAD, reports pain getting better overall (but still significant) at operative site at right hip and and right wrist. Reports eating okay, moving gas, has not moved bowel. Denies any fever/chills/headache/dizziness. Physical Exam Physical Exam: GENERAL: Alert and oriented x3. NAD, on RA. HEENT: No pallor, no icterus. Pupils equal, round and reactive to light. Oral mucosa moist. NECK: No JVD, no neck masses. HEART: S1 and S2 heard. Regular rate and rhythm. No murmur, no gallop. RESPIRATORY SYSTEM: Normal AP diameter. No accessory muscle use. No wheezing, no crackles. ABDOMEN: Soft, bowel sounds present, nontender, no distention. CENTRAL NERVOUS SYSTEM: No facial droop. Speech is clear. Obeys simple comm ands. Moves extremities. EXTREMITIES: No edema, no erythema seen. Rt hip w/ dreassing c/d/i. Distal NV status wnl. Rt forarm and hand in splint. Distal NV status wnl. Results & Data Results & Data Vital Signs (Past 12 Hours) Vital Signs Temp Pulse Resp BP Pulse Ox O2 Del Method 04/14/23 14:51 36.7 C 67 17 114/67 95 Room Air 04/14/23 07:10 36.8 C 71 15 115/65 93 Room Air (1) Closed right hip fracture Encounter type: initial encounter Qualified Code(s): S72.001A - Fracture of unspecified part of neck of right femur, initial encounter for closed fracture
[2023-04-14] MEDS: FUROSEMIDE 20 MG TAB PO SCH (16:43)
[2023-04-14] MEDS: EZETIMIBE 10 MG TAB PO SCH (20:38)
[2023-04-14] MEDS: ATORVASTATIN 40 MG TAB PO SCH (20:38)
[2023-04-14] MEDS: APIXABAN 2.5 MG TAB PO SCH (20:38)
[2023-04-14] MEDS: MONTELUKAST SODIUM 10 MG TABLET PO SCH (20:38)
[2023-04-15] MEDS: HYDROmorphone INJ 0.5 MG/0.5 ML SYR IV PRN (05:08)
[2023-04-15 06:29] LABS: Hematocrit (blood only) 29.3 % (37.0-47.0); Hemoglobin 9.6 g/dl (12.0-16.0); Mean Corpuscular Hemoglobin 29.8 pg (25.0-34.0); Mean Corpuscular Hgb Conc 32.8 g/dL (32.0-36.0); Mean Platelet Volume 10.7 fL (9.4-12.4); Platelet Count 147 K/uL (130-400); RDW Coefficient of Variation 13.2 % (11.5-14.5); RDW Standard Deviation 43.8 fL (36.4-46.3); Red Blood Count 3.22 M/uL (4.20-5.40); White Blood Count 8.96 K/ul (4.8-10.8)
[2023-04-15] MEDS: ACETAMINOPHEN 500 MG TAB PO SCH ×3 (06:45→22:05)
[2023-04-15] MEDS: PANTOprazole 40 MG TAB PO SCH (06:45)
[2023-04-15 07:00] LABS: BUN Creatinine Ratio 13.7 (10-20); Calcium 8.3 mg/dl (8.6-10.3); Creatinine Clr Calc Pharmacy 57.8 ml/min; Est GFR (African American) 88.9 ml/min; Est GFR (Non-African American) 76.7 ml/min; Potassium 3.9 mmol/L (3.5-5.1)
[2023-04-15] MEDS: oxyCODONE HCL IR 5 MG TAB (IMMEDIATE RELEASE) PO PRN ×3 (07:31→22:06)
[2023-04-15] MEDS: APIXABAN 2.5 MG TAB PO SCH ×2 (07:32→22:05)
[2023-04-15] MEDS: CHOLECALCIFEROL 5,000 UNITS 125 MCG TAB PO SCH (07:32)
[2023-04-15] MEDS: CITALOPRAM 20 MG TAB PO SCH (07:32)
--- NOTE | 2023-04-15 09:08 | Orthopedic Progress Note ---
Date of Service April 15, 2023 Assessment & Plan (1) Closed right hip fracture: Plan POD 2 s/p Right hip hemiarthroplasty by Dr. Prajapati, Right wrist intra- articular, displaced, distal radius and ulnar styloid fracture WBAT with walker right lower extremity, nonweightbearing right upper extremity Abduction pillow and posterior hip precautions PT/OT Diet - regular Frequently ice and elevate DVT prophylaxis: Eliquis 2.5 mg twice a day, compression stockings and SCDs in the hospital Pain control: Tylenol 1000mg q 8hrs, oxycodone 5-10mg q4-6 hrs for moderate pain, Dilaudid 0.5mg IV for severe/breakthrough pain Dressing: Prevena was applied today Case management for discharge needs patient may require short-term rehab facility. Follow up as scheduled with [facility] in 2 weeks for PSS Admission and Anticipated Discharge Date Admission Date: April 12, 2023 Subjective This 82-year-old female was seen 2 days status post right hip hemiarthroplasty. She also has a distal radius and ulnar fracture after sustaining a fall a few days ago. She states that her pain is well controlled with the pain medication she is receiving. She states that she still has difficulty lifting her right leg off of the bed. Patient lives alone and states that she will most likely need to go to a rehab facility because she will not be able to care for herself. She states that she also has not been up walking with physical therapy at but does have a normal left attached to the walker she will be using. Currently she denies chest pain, shortness of breath, fever, chills, sweats, numbness or tingling in her right upper or lower extremities. She denies nausea, vomiting, diarrhea or difficulty voiding. Review of Systems Review of Systems: All systems reviewed & are unremarkable except as noted in Subjective Physical Exam Physical Exam: Right lower extremity: Outer dressing was removed from the patient's right hip and a Prevena was placed. [place] are intact and there is no active drainage or fluctuance. Patient is unable to perform an active straight leg raise test. She is able to actively dorsi and plantarflex her foot without difficulty. She tolerates logroll testing. She experiences some referred pain to the hip with light passive hip flexion as well as with extremely light passive internal and external hip rotation. She is neurovascularly intact. Her peripheral pulses are 2+. Her capillary fill is less than 2 seconds. Right upper extremity: Sugar-tong dressing was kept in place. The [place] bandages were unraveling so I applied new ones. Patient does have significant edema in her digits but is able to move them and detect light sensation to touch. She has full range of motion in her shoulder. She is neurovascularly intact. Results & Data Vital Signs (Past 12 Hours) Vital Signs Temp Pulse Resp BP Pulse Ox O2 Del Method 04/15/23 07:17 36.6 C 66 16 126/63 94 Room Air 04/15/23 03:20 36.7 C 65 22 128/65 94 Room Air 04/14/23 21:29 Room Air Diagnostic Findings Laboratory Results WBC 8.96 K/ul (4.8-10.8) 04/15/23 05:39 RBC 3.22 M/uL (4.20-5.40) L 04/15/23 05:39 Hgb 9.6 g/dl (12.0-16.0) L 04/15/23 05:39 Hct 29.3 % (37.0-47.0) L 04/15/23 05:39 MCV 91.0 fL (80.0-100.0) 04/15/23 05:39 MCH 29.8 pg (25.0-34.0) 04/15/23 05:39 MCHC 32.8 g/dL (32.0-36.0) 04/15/23 05:39 RDW Std Deviation 43.8 fL (36.4-46.3) 04/15/23 05:39 RDW Coeff of Pamela 13.2 % (11.5-14.5) 04/15/23 05:39 Plt Count 147 K/uL (130-400) 04/15/23 05:39 MPV 10.7 fL (9.4-12.4) 04/15/23 05:39 Immature Gran % (Auto) 0.4 % 04/14/23 06:05 Neut % (Auto) 78.5 % 04/14/23 06:05 Lymph % (Auto) 9.0 % 04/14/23 06:05 Lewis % (Auto) 12.0 % 04/14/23 06:05 Eos % (Auto) 0.0 % 04/14/23 06:05 Baso % (Auto) 0.1 % 04/14/23 06:05 Neut # (Auto) 8.97 K/uL (1.40-6.50) H 04/14/23 06:05 Lymph # (Auto) 1.03 K/uL (1.2-3.4) L 04/14/23 06:05 Lewis # (Auto) 1.37 K/uL (0.11-0.59) H 04/14/23 06:05 Eos # (Auto) 0.00 K/uL (0-0.50) 04/14/23 06:05 Baso # (Auto) 0.01 K/uL (0-0.2) 04/14/23 06:05 Immature Gran # (Auto) 0.05 K/uL (0.01-0.20) 04/14/23 06:05 Sodium 134 mmol/L (136-145) L 04/15/23 05:39 Potassium 3.9 mmol/L (3.5-5.1) 04/15/23 05:39 Chloride 101 mmol/L (98-107) 04/15/23 05:39 Carbon Dioxide 29 mmol/L (21-32) 04/15/23 05:39 Anion Gap 4 (3-11) 04/15/23 05:39 BUN 10 mg/dl (6-23) 04/15/23 05:39 Creatinine 0.73 mg/dl (0.6-1.2) 04/15/23 05:39 Est Cr Clr Drug Dosing 57.8 ml/min 04/15/23 05:39 Est GFR ( Amer) 88.9 ml/min 04/15/23 05:39 Est GFR (Non-Af Amer) 76.7 ml/min 04/15/23 05:39 BUN/Creatinine Ratio 13.7 (10-20) 04/15/23 05:39 Glucose 124 mg/dl (70-99(Fasting)) H 04/15/23 05:39 Calcium 8.3 mg/dl (8.6-10.3) L 04/15/23 05:39 Total Bilirubin 0.5 mg/dl (0.2-1.0) 04/12/23 14:39 AST 28 U/L (13-39) 04/12/23 14:39 ALT 20 U/L (7-52) 04/12/23 14:39 Alkaline Phosphatase 96 U/L (34-104) 04/12/23 14:39 Total Protein 6.8 gm/dl (6.0-8.3) 04/12/23 14:39 Albumin 4.2 gm/dl (3.4-5.0) 04/12/23 14:39 Globulin 2.6 gm/dl (2.5-4.0) 04/12/23 14:39 Albumin/Globulin Ratio 1.6 (0.9-2) 04/12/23 14:39 Lipase 24 U/L (11-82) 04/12/23 14:39 25-OH Vitamin D Total 29.1 ng/ml (30-100) L 04/14/23 06:05 Urine Color Yellow 04/12/23 23:48 Urine Appearance Clear (Clear) 04/12/23 23:48 Urine pH 5.5 (4.5-7.5) 04/12/23 23:48 Ur Specific [place] 1.022 (1.000-1.030) 04/12/23 23:48 Urine Protein Negative (Negative) 04/12/23 23:48 Urine Glucose (UA) Negative (Negative) 04/12/23 23:48 Urine Ketones Trace (Negative) H 04/12/23 23:48 Urine Blood Negative (Negative) 04/12/23 23:48 Urine Nitrite Negative (Negative) 04/12/23 23:48 Urine Bilirubin Negative (Negative) 04/12/23 23:48 Urine Urobilinogen Negative (Negative) 04/12/23 23:48 Ur Leukocyte Esterase Negative (Negative) 04/12/23 23:48 Impressions Hip/Pelvis X-Ray 04/12/23 15:00 XR hip RT 2V w pelvis HISTORY: 82 years-old Female fall, likely frx acute right hip pain status post fall COMPARISON: None TECHNIQUE: AP view of the pelvis with 2 views of the right hip FINDINGS: Moderate osteoarthritis of the hips. There is an acute fracture with probable mild comminution involving the right femoral neck which appears to be transcervical. Mild impaction with 2.3 cm of superior displacement of the distal fracture fragment. No dislocation or additional acute fracture identified. Arterial calcifications. IMPRESSION: 1. Acute mildly impacted and displaced transcervical right femoral fracture. 2. No dislocation. ACT 112: Negative or not required by law. The above report was generated using voice recognition software. It may contain grammatical, syntax or spelling errors. Electronically signed by: Abhishek Mota M.D. 04/12/2023 4:38 PM Ribs w/Chest X-Ray 04/12/23 15:00 XR ribs RT min 2V w [id number] HISTORY: 82 years-old Female fall, R lateral rib pain acute right-sided rib pain status post fall COMPARISON: None TECHNIQUE: AP view of the chest with 4 views of the right ribs FINDINGS: Cardiomediastinal and hilar silhouettes are within normal limits. No pneumothorax, pleural effusion, airspace consolidation or pulmonary edema. Pleural thickening at the lung apices. Degenerative changes of the shoulders and spine. No acute displaced rib fractures identified. IMPRESSION: 1. No acute process of the chest. 2. No acute displaced rib fracture or pneumothorax identified. ACT 112: Negative or not required by law. The above report was generated using voice recognition software. It may contain grammatical, syntax or spelling errors. Electronically signed by: Abhishek Mota M.D. 04/12/2023 4:41 PM Wrist X-Ray 04/12/23 15:00 XR wrist RT min 3V routine HISTORY: 82 years-old Female pain post fall acute pain of the right wrist COMPARISON: None TECHNIQUE: 4 views of the right breast FINDINGS: Acute intra-articular distal radial mildly impacted fracture demonstrates a few millimeters of lateral displacement with 7 mm dorsal displacement and mild apex volar angulation. Acute minimally displaced ulnar styloid fracture. Moderate osteoarthritis with indeterminate subcentimeter bone fragment lateral to the trapezium. No acute carpal bone fracture identified. IMPRESSION: 1. Acute, mildly impacted and displaced comminuted intra-articular distal radial fracture. 2. Acute minimally displaced ulnar styloid fracture. ACT 112: Negative or not required by law. The above report was generated using voice recognition software. It may contain grammatical, syntax or spelling errors. Electronically signed by: Abhishek Mota M.D. 04/12/2023 4:37 PM Tibia/Fibula X-Ray 04/12/23 21:41 XR tibia fibula RT 2V CLINICAL HISTORY: pain secondary to fall. Right lower leg pain. COMPARISON STUDY: None. FINDINGS: The bones are osteopenic. No acute fracture or dislocation within the right tibia or fibula. Vascular calcifications are noted. No radiopaque foreign bodies. IMPRESSION: No fractures within the right lower leg. ACT 112: Negative or not required by law. Electronically signed by: Julián Del Toro M.D. 04/13/2023 8:15 AM Hip X-Ray 04/13/23 13:10 AP PELVIS, CROSSTABLE LATERAL RIGHT HIP History: Right total hip arthroplasty. Right hip fracture. Postop. FINDINGS: The patient is status post a right hip hemiarthroplasty. The hardware is intact. No fracture or dislocation. Skin elenita are in place. IMPRESSION: Right hip hemiarthroplasty. No evidence for hardware complication ACT 112: Negative or not required by law. Electronically signed by: Julián Del Toro M.D. 04/13/2023 2:19 PM (1) Closed right hip fracture Encounter type: initial encounter Qualified Code(s): S72.001A - Fracture of unspecified part of neck of right femur, initial encounter for closed fracture
[2023-04-15] MEDS: ONDANSETRON 4 MG OD TAB PO PRN (14:18)
--- NOTE | 2023-04-15 15:54 | Hospitalist Progress Note ---
Date of Service April 15, 2023 Assessment & Plan (1) Closed right hip fracture: Plan Closed right hip fracture:d/t mechanical fall. ortho consulted- s/p surgery on 04/13 by Aram Prajapati MD. Eliquis as DVT Px per Ortho. Monitor HnH closely. c/w analgesia, PT/OT. Per ortho, WBAT with walker right lower extremity, nonweightbearing right upper extremity. f/u ortho on dc. Acute Blood loss anemia, likely 2/2 operative loss: Hb drop from above 13 to just below 10 perioperatively. HnH stable. On Eliquis per Ortho. Right wrist fracture: Orthopedics on board, currently on splint. Continue analgesia. Vitamin D deficiency: Vitamin D level 29.1, vitamin D started at 5000 units daily. Transition to 1000 units daily upon discharge. Other chronic medical conditions: Continue with/resume home meds as and when able Chronic congestive heart failure: Patient unsure about the type of CHF she has, continue home Lasix. Currently euvolemic. Coronary artery disease: Stable, continue statin therapy. Neutrophilic leukocytosis: Likely reactive due to bone fracture, continue to monitor. HLD: Continue statin therapy HTN: Home amlodipine and lisinopril on hold. Resume as able postoperatively when blood pressure starts to improve. DVT prophylaxis: Patient on Eliquis 2.5 Mg twice daily PT/OT, CM to assist with DC planning Dispo: awaiting placement. Admission and Anticipated Discharge Date Admission Date: April 12, 2023 Subjective Patient seen and examined at bedside as a follow-up of closed right hip fracture, right wrist fracture. Patient was sitting up in chair, on room air, NAD, reports pain getting better at operative site at right hip and and right wrist. Reports eating okay, moving gas, has not moved bowel. Denies any fever/chills/headache/dizziness. Physical Exam Physical Exam: GENERAL: Alert and oriented x3. NAD, on RA. HEENT: No pallor, no icterus. Pupils equal, round and reactive to light. Oral mucosa moist. NECK: No JVD, no neck masses. HEART: S1 and S2 heard. Regular rate and rhythm. No murmur, no gallop. RESPIRATORY SYSTEM: Normal AP diameter. No accessory muscle use. No wheezing, no crackles. ABDOMEN: Soft, bowel sounds present, nontender, no distention. CENTRAL NERVOUS SYSTEM: No facial droop. Speech is clear. Obeys simple commands. Moves extremities. EXTREMITIES: No edema, no erythema seen. Rt hip incision c/d/i. Distal NV status wnl. Rt forearm and hand in splint. Distal NV status wnl. Results & Data Results & Data Vital Signs (Past 12 Hours) Vital Signs Temp Pulse Resp BP Pulse Ox O2 Del Method 04/15/23 15:30 36.8 C 64 16 136/69 95 Room Air 04/15/23 11:38 36.7 C 63 18 110/65 98 Room Air 04/15/23 07:17 36.6 C 66 16 126/63 94 Room Air (1) Closed right hip fracture Encounter type: initial encounter Qualified Code(s): S72.001A - Fracture of unspecified part of neck of right femur, initial encounter for closed fracture
[2023-04-15] MEDS: EZETIMIBE 10 MG TAB PO SCH (22:04)
[2023-04-15] MEDS: MONTELUKAST SODIUM 10 MG TABLET PO SCH (22:04)
[2023-04-15] MEDS: ATORVASTATIN 40 MG TAB PO SCH (22:05)
[2023-04-16] MEDS: PANTOprazole 40 MG TAB PO SCH (06:30)
[2023-04-16] MEDS: ACETAMINOPHEN 500 MG TAB PO SCH ×3 (06:32→22:08)
[2023-04-16 06:52] LABS: Hematocrit (blood only) 28.9 % (37.0-47.0); Hemoglobin 9.6 g/dl (12.0-16.0)
[2023-04-16] MEDS: CHOLECALCIFEROL 5,000 UNITS 125 MCG TAB PO SCH (08:26)
[2023-04-16] MEDS: APIXABAN 2.5 MG TAB PO SCH ×2 (08:26→22:08)
[2023-04-16] MEDS: CITALOPRAM 20 MG TAB PO SCH (08:27)
--- NOTE | 2023-04-16 08:54 | Orthopedic Progress Note ---
Date of Service April 16, 2023 Assessment & Plan (1) S/P hip hemiarthroplasty: Plan POD 3 s/p Right hip hemiarthroplasty by Dr. Prajapati, Right wrist intra- articular, displaced, distal radius and ulnar styloid fracture in sugar tongue splint WBAT with platform walker right lower extremity, nonweightbearing right upper extremity remain in sugar tongue splint Abduction pillow and posterior hip precautions PT/OT Diet - regular Frequently ice and elevate DVT prophylaxis: Eliquis 2.5 mg twice a day 4-6 weeks, compression stockings and SCDs in the hospital Continue to monitor H/H, stable this morning 9.6/28.9 Pain control: Tylenol 1000mg q 8hrs, oxycodone 5-10mg q4-6 hrs PRN for moderate pain, Dilaudid 0.25mg IV q 6hrs PRN for severe breakthrough pain Patient has not yet had BM but is passing gas. Continue bowel regiment Dressing: Prevena was applied today Case management for discharge needs patient will require short-term rehab facility. Requesting [facility] Follow up as scheduled with [facility] in [address] Prajapati. Prevena will need to be removed in 1 week and this can be done at the rehab facility. Admission and Anticipated Discharge Date Admission Date: April 12, 2023 Subjective Pt seen and examined bedside. Sitting up eating her yogurt. She says she is doing okay, its been "a little rough" but she says "ill be okay". Pain is controlled with medications. No questions or concerns this morning. Physical Exam Physical Exam: General: Pt laying in hospital bed AA&O, in NAD, calm and cooperative during exam Right Lower Extremity: Abduction pillow in place. SCDs bilaterally in place. Prevena Dressing in tact and not saturated. Suction working properly. Thigh soft and compressible. Patient is able to dorsiflex and plantarflex her ankle. She is able to wiggle all of her toes. Pt has 3+/5 strength with DF/PF. Calf supple and non tender. NVI with sensation to light touch distally and good distal pulses present. Lower extremity noted to have good color and temperature. Right upper extremity: Sugar-tong splint is clean and intact. Fitting appropriately and patient reports comfort. Swelling in her fingers has improved. Skin warm and pink. Capillary refill less than 2 seconds. Sensation intact distally to light touch. She is able to wiggle all 5 of her digits. Results & Data Vital Signs (Past 12 Hours) Vital Signs Temp Pulse Resp BP Pulse Ox O2 Del Method 04/16/23 07:18 36.8 C 58 L 16 118/64 98 Room Air 04/15/23 21:53 37 C 70 18 163/83 H 95 Room Air Laboratory Results 04/16/23 Range/Units 06:14 Hgb 9.6 L (12.0-16.0) g/dl Hct 28.9 L (37.0-47.0) %
[2023-04-16] MEDS: oxyCODONE HCL IR 5 MG TAB (IMMEDIATE RELEASE) PO PRN ×3 (09:55→22:22)
--- NOTE | 2023-04-16 17:57 | Hospitalist Progress Note ---
Date of Service April 16, 2023 Assessment & Plan (1) Closed right hip fracture: Plan Closed right hip fracture:d/t mechanical fall. ortho consulted- s/p surgery on 04/13 by Aram Prajapati MD. Eliquis as DVT Px per Ortho. Monitor HnH closely. c/w analgesia, PT/OT. Per ortho, WBAT with walker right lower extremity, nonweightbearing right upper extremity. f/u ortho on dc. Acute Blood loss anemia, likely 2/2 operative loss: Hb drop from above 13 to just below 10 perioperatively. HnH stable. On Eliquis per Ortho. Right wrist fracture: Orthopedics on board, currently on splint. Continue analgesia. Vitamin D deficiency: Vitamin D level 29.1, vitamin D started at 5000 units daily. Transition to 1000 units daily upon discharge. Other chronic medical conditions: Continue with/resume home meds as and when able Chronic congestive heart failure: Patient unsure about the type of CHF she has, continue home Lasix. Currently euvolemic. Coronary artery disease: Stable, continue statin therapy. Neutrophilic leukocytosis: Likely reactive due to bone fracture, continue to monitor. HLD: Continue statin therapy HTN: Home amlodipine and lisinopril on hold. Resume as able postoperatively when blood pressure starts to improve. DVT prophylaxis: Patient on Eliquis 2.5 Mg twice daily PT/OT, CM to assist with DC planning Dispo: awaiting placement, P2P erkia. Admission and Anticipated Discharge Date Admission Date: April 12, 2023 Subjective Patient seen and examined at bedside as a follow-up of closed right hip fracture, right wrist fracture. Patient was sitting up in chair, on room air, NAD, reports pain getting better at operative site at right hip and and right wrist. Reports eating okay, moving gas, bowels okay. Denies any fever/chills/headache/dizziness. Physical Exam Physical Exam: GENERAL: Alert and oriented x3. NAD, on RA. HEENT: No pallor, no icterus. Pupils equal, round and reactive to light. Oral mucosa moist. NECK: No JVD, no neck masses. HEART: S1 and S2 heard. Regular rate and rhythm. No murmur, no gallop. RESPIRATORY SYSTEM: Normal AP diameter. No accessory muscle use. No wheezing, no crackles. ABDOMEN: Soft, bowel sounds present, nontender, no distention. CENTRAL NERVOUS SYSTEM: No facial droop. Speech is clear. Obeys simple commands. Moves extremities. EXTREMITIES: No edema, no erythema seen. Rt hip incision c/d/i. Distal NV status wnl. Rt forearm and hand in splint. Distal NV status wnl. Results & Data Results & Data Vital Signs (Past 12 Hours) Vital Signs Temp Pulse Resp BP Pulse Ox O2 Del Method 04/16/23 15:38 36.9 C 70 16 147/67 H 99 Room Air 04/16/23 07:18 36.8 C 58 L 16 118/64 98 Room Air (1) Closed right hip fracture Encounter type: initial encounter Qualified Code(s): S72.001A - Fracture of unspecified part of neck of right femur, initial encounter for closed fracture
[2023-04-16] MEDS: EZETIMIBE 10 MG TAB PO SCH (22:08)
[2023-04-16] MEDS: MONTELUKAST SODIUM 10 MG TABLET PO SCH (22:08)
[2023-04-16] MEDS: ATORVASTATIN 40 MG TAB PO SCH (22:08)
[2023-04-17] MEDS: oxyCODONE HCL IR 5 MG TAB (IMMEDIATE RELEASE) PO PRN ×2 (04:25→09:50)
[2023-04-17] MEDS: PANTOprazole 40 MG TAB PO SCH (05:29)
[2023-04-17] MEDS: ACETAMINOPHEN 500 MG TAB PO SCH ×3 (06:08→22:34)
[2023-04-17 08:04] LABS: Creatinine Clr Calc Pharmacy 57.8 ml/min; Est GFR (African American) 88.9 ml/min; Est GFR (Non-African American) 76.7 ml/min
[2023-04-17] MEDS: CHOLECALCIFEROL 5,000 UNITS 125 MCG TAB PO SCH (08:10)
[2023-04-17] MEDS: APIXABAN 2.5 MG TAB PO SCH ×2 (08:10→20:00)
[2023-04-17] MEDS: CITALOPRAM 20 MG TAB PO SCH (08:10)
[2023-04-17] MEDS: FUROSEMIDE 20 MG TAB PO SCH (08:11)
[2023-04-17] MEDS: ONDANSETRON 4 MG OD TAB PO PRN ×2 (09:07→12:47)
--- NOTE | 2023-04-17 10:07 | Orthopedic Progress Note ---
Date of Service April 17, 2023 Assessment & Plan (1) S/P hip hemiarthroplasty: (2) Right wrist fracture: Plan POD 4 s/p Right hip hemiarthroplasty by Dr. Prajapati, Right wrist intra- articular, displaced, distal radius and ulnar styloid fracture in sugar tongue splint WBAT with platform walker right lower extremity, nonweightbearing right upper extremity remain in sugar tongue splint Abduction pillow and posterior hip precautions PT/OT Diet - regular Frequently ice and elevate DVT prophylaxis: Eliquis 2.5 mg twice a day 4-6 weeks, compression stockings and SCDs in the hospital. Continue to monitor for signs fo DVTs. Educated patient on this as well. Pain control: Tylenol 1000mg q 8hrs, oxycodone 5-10mg q4-6 hrs PRN for moderate pain, Dilaudid 0.25mg IV q 6hrs PRN for severe breakthrough pain Continue bowel regiment Dressing: Prevena was applied 04/15 Case management for discharge needs patient will require short-term rehab facility. Requesting [facility] Follow up as scheduled with [facility] in [address] Prajapati. Prevena will need to be removed in 1 week and this can be done at the rehab facility. Admission and Anticipated Discharge Date Admission Date: April 12, 2023 Subjective Patient seen and examined at bedside. Postop day 4 status post right hip hemiarthroplasty. She says she got sick this morning and vomited. She feels kind of queasy. Her pain is about the same but has not gotten worse. She does say she has some calf tenderness that has been there since the operation. She has it in both legs and says she thinks it is from the compression devices. Denies any numbness or tingling. No shortness of breath. Physical Exam Physical Exam: General: Pt laying in hospital bed AA&O, in NAD, calm and cooperative during exam. She is sitting up with an emesis bag. Right Lower Extremity: Abduction pillow in place. SCDs bilaterally in place. Prevena Dressing in tact and not saturated. Suction working properly. Thigh soft and compressible. Patient is able to dorsiflex and plantarflex her ankle. She is able to wiggle all of her toes. Pt has 3+/5 strength with DF/PF. Calf supple But patient reports some discomfort when generally palpating. No palpable cord is present. Negative Homans. No major distal extremity swelling. NVI with sensation to light touch distally and faint distal pulses present. Lower extremity noted to have good color and temperature. Right upper extremity: Sugar-tong splint is clean and intact. Fitting appropriately and patient reports comfort. Swelling in her fingers has improved. Skin warm and pink. Capillary refill less than 2 seconds. Sensation intact distally to light touch. She is able to wiggle all 5 of her digits. Results & Data Vital Signs (Past 12 Hours) Vital Signs Temp Pulse Resp BP Pulse Ox O2 Del Method 04/17/23 06:46 36.7 C 62 16 122/69 97 Room Air 04/16/23 23:27 36.8 C 61 18 111/64 94 Room Air (2) Right wrist fracture Encounter type: initial encounter Fracture type: closed Qualified Code(s): S62.101A - Fracture of unspecified carpal bone, right wrist, initial encounter for closed fracture
--- NOTE | 2023-04-17 13:29 | XRay Report ---
KUB HISTORY: Acute generalized abdominal pain eval for SBO COMPARISON: Right hip radiographs 04/13/2023. FINDINGS: Nonobstructive bowel gas pattern. Moderate colonic fecal retention. Lucencies within the ab dominal left upper quadrant likely represent intraluminal air within the splenic flexure surrounding the stool contents. No renal calculi. No ureteral calculi. No pneumoperitoneum or pneumatosis. Right hip arthroplasty with overlying skin elenita. Degenerative changes of the spine, pelvis and left hip . No fracture. IMPRESSION: 1. Nonobstructive bowel gas pattern. 2. Moderate colonic fecal retention. ACT 112: Negative or not required by law. The above report was generated using voice recognition software. It may contain grammatical, syntax o r spelling errors. Electronically signed by: Abhishek Mota M.D. 04/17/2023 1:27 PM
--- NOTE | 2023-04-17 15:52 | Hospitalist Progress Note ---
Date of Service April 17, 2023 Assessment & Plan (1) Closed right hip fracture: Plan Closed right hip fracture:d/t mechanical fall. ortho consulted- s/p surgery on 04/13 by Aram Prajapati MD. Eliquis 2.5 mg twice a day 4-6 weeks. Monitor H&H closely. c/w analgesia, PT/OT. Per ortho, WBAT with walker right lower extremity, f/u ortho on dc. Follow up as scheduled with [facility] in [address] Prajapati. Prevena will need to be removed in 1 week and this can be done at the rehab facility. Right wrist fracture: Orthopedics on board, currently on splint. Nonweightbearing right upper extremity. Continue analgesia. Acute Blood loss anemia, likely 2/2 operative loss: Hb drop from above 13 to just below 10 perioperatively. H&H stable. On Eliquis per Ortho. Nausea/vomitin episodes of emesis this morning, improved with Zofran. KUB obtained to rule out SBO - showing nonobstructive bowel gas pattern, moderate colonic fecal retention. Augment bowel regimen Vitamin D deficiency: Vitamin D level 29.1, vitamin D started at 5000 units daily. Transition to 1000 units daily upon discharge. Other chronic medical conditions: Continue with/resume home meds as and when able Chronic congestive heart failure: Patient unsure about the type of CHF she has, continue home Lasix. Currently euvolemic. Coronary artery disease: Stable, continue statin therapy. Neutrophilic leukocytosis: Likely reactive due to bone fracture, continue to monitor. HLD: Continue statin therapy HTN: Home amlodipine and lisinopril on hold. Resume as able postoperatively when blood pressure starts to improve. DVT prophylaxis: Patient on Eliquis 2.5 Mg twice daily PT/OT, CM to assist with DC planning Dispo: awaiting placement Attempted peer to peer today but never received a call back from provider with insurance company. Admission and Anticipated Discharge Date Admission Date: April 12, 2023 Supervising Physician Co-Signing Physician Notes Patient seen and examined at bedside as a follow-up of closed right hip fracture after mechanical fall and right wrist fracture. Patient reports improving pain control. Patient did have some nausea and vomiting and noted to have fecal retention and x-ray KUB done today. Increase bowel regimen. Patient awaiting rehab. On exam, patient on room air, right hip without soakage at operative site. Heart/lung/abdomen examination fairly WNL. I have seen and examined the patient and have discussed the case with the provider above. I agree with the assessment and plan as stated. Subjective Seen and examined in 319. Feeling nauseated this morning and vomiting food contents x 2. Feeling better after zofran. Denies brittaney abdominal pain or bloating. Has had one very small bowel movement post-operatively. Otherwise no new complaints. No F/C, lightheadedness, CP, SOB, dysuria or diarrhea. Review of Systems Review of Systems: At least ten systems reviewed and negative except as noted in the HPI. Physical Exam Physical Exam: Gen: WD/WN, NAD, lying in bed, A&Ox3 HEENT: Normocephalic, atraumatic, conjunctivae moist, sclerae anicteric, mucous membranes moist Lung: Clear to Auscultation bilaterally, no wheezes/rales/rhonchi Heart: Regular rate, regular rhythm, no murmurs, rubs, or gallops Abdomen: Soft, NT, ND +BS x 4 Extremities: + R hip incision c/d/i, Distally NVI. + R forearm and hand in splint, able to move fingers, distally NVI Skin: Warm, no rash Results & Data Results & Data Vital Signs (Past 12 Hours) Vital Signs Temp Pulse Resp BP Pulse Ox O2 Del Method 04/17/23 14:50 36.7 C 73 16 167/71 H 95 Room Air 04/17/23 06:46 36.7 C 62 16 122/69 97 Room Air Laboratory Results BMP 04/17/23 06:28 Creatinine 0.73 Diagnostic Findings Hip/Pelvis X-Ray 04/12/23 15:00 XR hip RT 2V w pelvis HISTORY: 82 years-old Female fall, likely frx acute right hip pain status post fall COMPARISON: None TECHNIQUE: AP view of the pelvis with 2 views of the right hip FINDINGS: Moderate osteoarthritis of the hips. There is an acute fracture with probable mild comminution involving the right femoral neck which appears to be transcervical. Mild impaction with 2.3 cm of superior displacement of the distal fracture fragment. No dislocation or additional acute fracture identified. Arterial calcifications. IMPRESSION: 1. Acute mildly impacted and displaced transcervical right femoral fracture. 2. No dislocation. ACT 112: Negative or not required by law. The above report was generated using voice recognition software. It may contain grammatical, syntax or spelling errors. Electronically signed by: Abhishek Mota M.D. 04/12/2023 4:38 PM Ribs w/Chest X-Ray 04/12/23 15:00 XR ribs RT min 2V w [id number] HISTORY: 82 years-old Female fall, R lateral rib pain acute right-sided rib pain status post fall COMPARISON: None TECHNIQUE: AP view of the chest with 4 views of the right ribs FINDINGS: Cardiomediastinal and hilar silhouettes are within normal limits. No pneumothorax, pleural effusion, airspace consolidation or pulmonary edema. Pleural thickening at the lung apices. Degenerative changes of the shoulders and spine. No acute displaced rib fractures identified. IMPRESSION: 1. No acute process of the chest. 2. No acute displaced rib fracture or pneumothorax identified. ACT 112: Negative or not required by law. The above report was generated using voice recognition software. It may contain grammatical, syntax or spelling errors. Electronically signed by: Abhishek Mota M.D. 04/12/2023 4:41 PM Wrist X-Ray 04/12/23 15:00 XR wrist RT min 3V routine HISTORY: 82 years-old Female pain post fall acute pain of the right wrist COMPARISON: None TECHNIQUE: 4 views of the right breast FINDINGS: Acute intra-articular distal radial mildly impacted fracture demonstrates a few millimeters of lateral displacement with 7 mm dorsal displacement and mild apex volar angulation. Acute minimally displaced ulnar styloid fracture. Moderate osteoarthritis with indeterminate subcentimeter bone fragment lateral to the trapezium. No acute carpal bone fracture identified. IMPRESSION: 1. Acute, mildly impacted and displaced comminuted intra-articular distal radial fracture. 2. Acute minimally displaced ulnar styloid fracture. ACT 112: Negative or not required by law. The above report was generated using voice recognition software. It may contain grammatical, syntax or spelling errors. Electronically signed by: Abhishek Mota M.D. 04/12/2023 4:37 PM Tibia/Fibula X-Ray 04/12/23 21:41 XR tibia fibula RT 2V CLINICAL HISTORY: pain secondary to fall. Right lower leg pain. COMPARISON STUDY: None. FINDINGS: The bones are osteopenic. No acute fracture or dislocation within the right tibia or fibula. Vascular calcifications are noted. No radiopaque foreign bodies. IMPRESSION: No fractures within the right lower leg. ACT 112: Negative or not required by law. Electronically signed by: Julián Del Toro M.D. 04/13/2023 8:15 AM Hip X-Ray 04/13/23 13:10 AP PELVIS, CROSSTABLE LATERAL RIGHT HIP History: Right total hip arthroplasty. Right hip fracture. Postop. FINDINGS: The patient is status post a right hip hemiarthroplasty. The hardware is intact. No fracture or dislocation. Skin elenita are in place. IMPRESSION: Right hip hemiarthroplasty. No evidence for hardware complication ACT 112: Negative or not required by law. Electronically signed by: Julián Del Toro M.D. 04/13/2023 2:19 PM KUB X-Ray 04/17/23 11:42 KUB HISTORY: Acute generalized abdominal pain eval for SBO COMPARISON: Right hip radiographs 04/13/2023. FINDINGS: Nonobstructive bowel gas pattern. Moderate colonic fecal retention. Lucencies within the abdominal left upper quadrant likely represent intraluminal air within the splenic flexure surrounding the stool contents. No renal calculi. No ureteral calculi. No pneumoperitoneum or pneumatosis. Right hip arthroplasty with overlying skin elenita. Degenerative changes of the spine, pelvis and left hip. No fracture. IMPRESSION: 1. Nonobstructive bowel gas pattern. 2. Moderate colonic fecal retention. ACT 112: Negative or not required by law. The above report was generated using voice recognition software. It may contain grammatical, syntax or spelling errors. Electronically signed by: Abhishek Mota M.D. 04/17/2023 1:27 PM (1) Closed right hip fracture Encounter type: initial encounter Qualified Code(s): S72.001A - Fracture of unspecified part of neck of right femur, initial encounter for closed fracture
[2023-04-17] MEDS ORDERED: amLODIPine BESYLATE 5 MG TAB PO ONE (16:58)
[2023-04-17] MEDS: DOCUSATE SODIUM/SENNA 50/8.6MG TAB PO SCH (18:22)
[2023-04-17] MEDS: DOCUSATE SODIUM 100 MG CAP PO SCH (19:59)
[2023-04-17] MEDS: MONTELUKAST SODIUM 10 MG TABLET PO SCH (20:00)
[2023-04-17] MEDS: ATORVASTATIN 40 MG TAB PO SCH (20:00)
[2023-04-17] MEDS: EZETIMIBE 10 MG TAB PO SCH (20:00)
[2023-04-17] MEDS: lisinopril 2.5 MG TAB PO SCH (21:29)
[2023-04-18] MEDS: PANTOprazole 40 MG TAB PO SCH (06:00)
[2023-04-18] MEDS: ACETAMINOPHEN 500 MG TAB PO SCH ×3 (06:00→22:29)
[2023-04-18 07:31] LABS: BUN Creatinine Ratio 15.2 (10-20); Calcium 8.6 mg/dl (8.6-10.3); Creatinine Clr Calc Pharmacy 53.4 ml/min; Est GFR (African American) 80.8 ml/min; Est GFR (Non-African American) 69.7 ml/min; Potassium 3.8 mmol/L (3.5-5.1)
[2023-04-18] MEDS: CITALOPRAM 20 MG TAB PO SCH (09:00)
[2023-04-18] MEDS: oxyCODONE HCL IR 5 MG TAB (IMMEDIATE RELEASE) PO PRN ×2 (09:00→19:20)
[2023-04-18] MEDS: DOCUSATE SODIUM/SENNA 50/8.6MG TAB PO SCH (09:01)
[2023-04-18] MEDS: APIXABAN 2.5 MG TAB PO SCH ×2 (09:01→19:23)
[2023-04-18] MEDS: DOCUSATE SODIUM 100 MG CAP PO SCH ×2 (09:01→19:22)
[2023-04-18] MEDS: CHOLECALCIFEROL 5,000 UNITS 125 MCG TAB PO SCH (09:01)
--- NOTE | 2023-04-18 09:10 | XRay Report ---
XR wrist RT 2V CLINICAL HISTORY: fracture COMPARISON: Right wrist radiographs April 12, 2023. FINDINGS: Overlying cast is noted. Alignment of the comminuted displaced intra-articular fracture of the right radius is similar to prior radiographs. Minimally displaced fracture of the ulnar styloid is unchanged. There are no additional fractures. IMPRESSION: No change in alignment of the distal right radial and ulnar fractures since prior radiogr aphs. ACT 112: Negative or not required by law. Electronically signed by: Britton Barrera M.D. 04/18/2023 9:09 AM
[2023-04-18] MEDS: amLODIPine BESYLATE 5 MG TAB PO SCH (09:25)
--- NOTE | 2023-04-18 10:24 | Orthopedic Progress Note ---
Date of Service April 18, 2023 Assessment & Plan (1) S/P hip hemiarthroplasty: (2) Right wrist fracture: Plan POD 5 s/p Right hip hemiarthroplasty by Dr. Prajapati, Right wrist intra- articular, displaced, distal radius and ulnar styloid fracture in sugar tongue splint WBAT with platform walker right lower extremity, nonweightbearing right upper extremity remain in sugar tongue splint Abduction pillow and posterior hip precautions PT/OT Diet - regular Frequently ice and elevate DVT prophylaxis: Eliquis 2.5 mg twice a day 4-6 weeks, compression stockings and SCDs in the hospital. Continue to monitor for signs fo DVTs. Educated patient on this as well. Pain control: Tylenol 1000mg q 8hrs, oxycodone 5-10mg q4-6 hrs PRN for moderate pain, Dilaudid 0.25mg IV q 6hrs PRN for severe breakthrough pain Continue bowel regiment Dressing: Prevena was applied 04/15 Case management for discharge needs patient will require short-term rehab facility. Requesting [facility] Follow up as scheduled with [facility] in [address] Prajapati. Prevena will need to be removed in 1 week and this can be done at the rehab facility. Admission and Anticipated Discharge Date Admission Date: April 12, 2023 Subjective This 82-year-old female seen this morning following her hemiarthroplasty of the right hip and for follow-up of a right wrist fracture. Patient states she is doing much better today than yesterday. She had 3 episodes of nausea and vomiting yesterday but after being given Zofran that has resolved. She states that the pain is well controlled with p.o. pain medication. She states she has met with case management and they are trying to obtain authorization to allow her to go to a rehab facility. Currently she denies chest pain, shortness of breath, fever, chills, sweats, lethargy, nausea, vomiting, diarrhea or difficulty voiding. Review of Systems Review of Systems: All systems reviewed & are unremarkable except as noted in HPI & below Physical Exam Physical Exam: Right lower extremity: Prevena is in place and functioning appropriately. Patient is unable to perform an active straight leg raise test. She is able to actively dorsi and plantarflex her foot without difficulty. She tolerates logroll testing. She experiences some referred pain to the hip with light passive hip flexion as well as with extremely light passive internal and external hip rotation. She is neurovascularly intact. Her peripheral pulses are 2+. Her capillary fill is less than 2 seconds. Right upper extremity: Sugar-tong dressing was kept in place. Patient does have significant edema in her digits but is able to move them and detect light sensation to touch. She has full range of motion in her shoulder. She is neurovascularly intact. Results & Data Vital Signs (Past 12 Hours) Vital Signs Temp Pulse Resp BP Pulse Ox O2 Del Method 04/18/23 07:41 36.7 C 76 18 120/68 96 Room Air Diagnostic Findings Laboratory Results WBC 8.96 K/ul (4.8-10.8) 04/15/23 05:39 RBC 3.22 M/uL (4.20-5.40) L 04/15/23 05:39 Hgb 9.6 g/dl (12.0-16.0) L 04/16/23 06:14 Hct 28.9 % (37.0-47.0) L 04/16/23 06:14 MCV 91.0 fL (80.0-100.0) 04/15/23 05:39 MCH 29.8 pg (25.0-34.0) 04/15/23 05:39 MCHC 32.8 g/dL (32.0-36.0) 04/15/23 05:39 RDW Std Deviation 43.8 fL (36.4-46.3) 04/15/23 05:39 RDW Coeff of Pamela 13.2 % (11.5-14.5) 04/15/23 05:39 Plt Count 147 K/uL (130-400) 04/15/23 05:39 MPV 10.7 fL (9.4-12.4) 04/15/23 05:39 Immature Gran % (Auto) 0.4 % 04/14/23 06:05 Neut % (Auto) 78.5 % 04/14/23 06:05 Lymph % (Auto) 9.0 % 04/14/23 06:05 [place] % (Auto) 12.0 % 04/14/23 06:05 Eos % (Auto) 0.0 % 04/14/23 06:05 Baso % (Auto) 0.1 % 04/14/23 06:05 Neut # (Auto) 8.97 K/uL (1.40-6.50) H 04/14/23 06:05 Lymph # (Auto) 1.03 K/uL (1.2-3.4) L 04/14/23 06:05 [place] # (Auto) 1.37 K/uL (0.11-0.59) H 04/14/23 06:05 Eos # (Auto) 0.00 K/uL (0-0.50) 04/14/23 06:05 Baso # (Auto) 0.01 K/uL (0-0.2) 04/14/23 06:05 Immature Gran # (Auto) 0.05 K/uL (0.01-0.20) 04/14/23 06:05 Sodium 136 mmol/L (136-145) 04/18/23 06:47 Potassium 3.8 mmol/L (3.5-5.1) 04/18/23 06:47 Chloride 100 mmol/L (98-107) 04/18/23 06:47 Carbon Dioxide 31 mmol/L (21-32) 04/18/23 06:47 Anion Gap 5 (3-11) 04/18/23 06:47 BUN 12 mg/dl (6-23) 04/18/23 06:47 Creatinine 0.79 mg/dl (0.6-1.2) 04/18/23 06:47 Est Cr Clr Drug Dosing 53.4 ml/min 04/18/23 06:47 Est GFR ( Amer) 80.8 ml/min 04/18/23 06:47 Est GFR (Non-Af Amer) 69.7 ml/min 04/18/23 06:47 BUN/Creatinine Ratio 15.2 (10-20) 04/18/23 06:47 Glucose 93 mg/dl (70-99(Fasting)) 04/18/23 06:47 Calcium 8.6 mg/dl (8.6-10.3) 04/18/23 06:47 Total Bilirubin 0.5 mg/dl (0.2-1.0) 04/12/23 14:39 AST 28 U/L (13-39) 04/12/23 14:39 ALT 20 U/L (7-52) 04/12/23 14:39 Alkaline Phosphatase 96 U/L (34-104) 04/12/23 14:39 Total Protein 6.8 gm/dl (6.0-8.3) 04/12/23 14:39 Albumin 4.2 gm/dl (3.4-5.0) 04/12/23 14:39 Globulin 2.6 gm/dl (2.5-4.0) 04/12/23 14:39 Albumin/Globulin Ratio 1.6 (0.9-2) 04/12/23 14:39 Lipase 24 U/L (11-82) 04/12/23 14:39 25-OH Vitamin D Total 29.1 ng/ml (30-100) L 04/14/23 06:05 Urine Color Yellow 04/12/23 23:48 Urine Appearance Clear (Clear) 04/12/23 23:48 Urine pH 5.5 (4.5-7.5) 04/12/23 23:48 Ur Specific [place] 1.022 (1.000-1.030) 04/12/23 23:48 Urine Protein Negative (Negative) 04/12/23 23:48 Urine Glucose (UA) Negative (Negative) 04/12/23 23:48 Urine Ketones Trace (Negative) H 04/12/23 23:48 Urine Blood Negative (Negative) 04/12/23 23:48 Urine Nitrite Negative (Negative) 04/12/23 23:48 Urine Bilirubin Negative (Negative) 04/12/23 23:48 Urine Urobilinogen Negative (Negative) 04/12/23 23:48 Ur Leukocyte Esterase Negative (Negative) 04/12/23 23:48 Impressions Hip/Pelvis X-Ray 04/12/23 15:00 XR hip RT 2V w pelvis HISTORY: 82 years-old Female fall, likely frx acute right hip pain status post fall COMPARISON: None TECHNIQUE: AP view of the pelvis with 2 views of the right hip FINDINGS: Moderate osteoarthritis of the hips. There is an acute fracture with probable mild comminution involving the right femoral neck which appears to be transcervical. Mild impaction with 2.3 cm of superior displacement of the distal fracture fragment. No dislocation or additional acute fracture identified. Arterial calcifications. IMPRESSION: 1. Acute mildly impacted and displaced transcervical right femoral fracture. 2. No dislocation. ACT 112: Negative or not required by law. The above report was generated using voice recognition software. It may contain grammatical, syntax or spelling errors. Electronically signed by: Abhishek Mota M.D. 04/12/2023 4:38 PM Ribs w/Chest X-Ray 04/12/23 15:00 XR ribs RT min 2V w CXR1V HISTORY: 82 years-old Female fall, R lateral rib pain acute right-sided rib pain status post fall COMPARISON: None TECHNIQUE: AP view of the chest with 4 views of the right ribs FINDINGS: Cardiomediastinal and hilar silhouettes are within normal limits. No pneumothorax, pleural effusion, airspace consolidation or pulmonary edema. Pleural thickening at the lung apices. Degenerative changes of the shoulders and spine. No acute displaced rib fractures identified. IMPRESSION: 1. No acute process of the chest. 2. No acute displaced rib fracture or pneumothorax identified. ACT 112: Negative or not required by law. The above report was generated using voice recognition software. It may contain grammatical, syntax or spelling errors. Electronically signed by: Abhishek Mota M.D. 04/12/2023 4:41 PM Tibia/Fibula X-Ray 04/12/23 21:41 XR tibia fibula RT 2V CLINICAL HISTORY: pain secondary to fall. Right lower leg pain. COMPARISON STUDY: None. FINDINGS: The bones are osteopenic. No acute fracture or dislocation within the right tibia or fibula. Vascular calcifications are noted. No radiopaque foreign bodies. IMPRESSION: No fractures within the right lower leg. ACT 112: Negative or not required by law. Electronically signed by: Julián Del Toro M.D. 04/13/2023 8:15 AM Hip X-Ray 04/13/23 13:10 AP PELVIS, CROSSTABLE LATERAL RIGHT HIP History: Right total hip arthroplasty. Right hip fracture. Postop. FINDINGS: The patient is status post a right hip hemiarthroplasty. The hardware is intact. No fracture or dislocation. Skin elenita are in place. IMPRESSION: Right hip hemiarthroplasty. No evidence for hardware complication ACT 112: Negative or not required by law. Electronically signed by: Julián Del Toro M.D. 04/13/2023 2:19 PM KUB X-Ray 04/17/23 11:42 KUB HISTORY: Acute generalized abdominal pain eval for SBO COMPARISON: Right hip radiographs 04/13/2023. FINDINGS: Nonobstructive bowel gas pattern. Moderate colonic fecal retention. Lucencies within the abdominal left upper quadrant likely represent intraluminal air within the splenic flexure surrounding the stool contents. No renal calculi. No ureteral calculi. No pneumoperitoneum or pneumatosis. Right hip arthroplasty with overlying skin elenita. Degenerative changes of the spine, pelvis and left hip. No fracture. IMPRESSION: 1. Nonobstructive bowel gas pattern. 2. Moderate colonic fecal retention. ACT 112: Negative or not required by law. The above report was generated using voice recognition software. It may contain grammatical, syntax or spelling errors. Electronically signed by: Abhishek Mota M.D. 04/17/2023 1:27 PM Wrist X-Ray 04/18/23 08:00 XR wrist RT 2V CLINICAL HISTORY: fracture COMPARISON: Right wrist radiographs April 12, 2023. FINDINGS: Overlying cast is noted. Alignment of the comminuted displaced intra- articular fracture of the right radius is similar to prior radiographs. Minimally displaced fracture of the ulnar styloid is unchanged. There are no additional fractures. IMPRESSION: No change in alignment of the distal right radial and ulnar fractures since prior radiographs. ACT 112: Negative or not required by law. Electronically signed by: Britton Barrera M.D. 04/18/2023 9:09 AM (2) Right wrist fracture Encounter type: initial encounter Fracture type: closed Qualified Code(s): S62.101A - Fracture of unspecified carpal bone, right wrist, initial encounter for closed fracture
--- NOTE | 2023-04-18 15:23 | Hospitalist Progress Note ---
Date of Service April 18, 2023 Assessment & Plan (1) Closed right hip fracture: Plan Closed right hip fracture:d/t mechanical fall. ortho consulted- s/p surgery on 04/13 by Aram Prajapati MD. Eliquis 2.5 mg twice a day 4-6 weeks. Monitor H&H closely. c/w analgesia, PT/OT. Per ortho, WBAT with walker right lower extremity, f/u ortho on dc. Follow up as scheduled with [facility] in [address] Prajapati. Prevena will need to be removed in 1 week and this can be done at the rehab facility. Right wrist fracture: Orthopedics on board, currently on splint. Nonweightbearing right upper extremity. Continue analgesia. Acute Blood loss anemia, likely 2/2 operative loss: Hb drop from above 13 to just below 10 perioperatively. H&H stable. On Eliquis per Ortho. Nausea/vomitin episodes of emesis this morning, improved with Zofran. KUB obtained to rule out SBO - showing nonobstructive bowel gas pattern, moderate colonic fecal retention. Augment bowel regimen Vitamin D deficiency: Vitamin D level 29.1, vitamin D started at 5000 units daily. Transition to 1000 units daily upon discharge. Other chronic medical conditions: Continue with/resume home meds as and when able Chronic congestive heart failure: Patient unsure about the type of CHF she has, continue home Lasix. Currently euvolemic. Coronary artery disease: Stable, continue statin therapy. Neutrophilic leukocytosis: Likely reactive due to bone fracture, continue to monitor. HLD: Continue statin therapy HTN: Amlodipine and lisinopril resumed as patient hypertensive yesterday DVT prophylaxis: Patient on Eliquis 2.5 Mg twice daily PT/OT, CM to assist with DC planning Dispo: awaiting placement Peer to peer today - rehab denial upheld- CM discussed with patient, will reach out to SNF options. Updated patient and family at bedside. Admission and Anticipated Discharge Date Admission Date: April 12, 2023 Supervising Physician Co-Signing Physician Notes Patient seen and examined at bedside as a follow-up of closed right hip fracture after mechanical fall and right wrist fracture. Patient reports improving pain control. Patient did have some nausea and vomiting yesterday which are improving today. Patient awaiting rehab. On exam, patient on room air, right hip without soakage at operative site. Heart/lung/abdomen examination fairly WNL. I have seen and examined the patient and have discussed the case with the provider above. I agree with the assessment and plan as stated. Subjective Seen and examined in 319. Feeling better overnight. Still nauseated after exertion but no vomiting. Passing gas today but no bowel movement despite increased regimen. Pain at hip and wrist are controlled. Denies brittaney abdominal pain or bloating. No F/C, lightheadedness, CP, SOB, dysuria or diarrhea. Review of Systems Review of Systems: At least ten systems reviewed and negative except as noted in the HPI. Physical Exam Physical Exam: Gen: WD/WN, NAD, lying in bed, A&Ox3 HEENT: Normocephalic, atraumatic, conjunctivae moist, sclerae anicteric, mucous membranes moist Lung: Clear to Auscultation bilaterally, no wheezes/rales/rhonchi Heart: Regular rate, regular rhythm, no murmurs, rubs, or gallops Abdomen: Soft, NT, ND +BS x 4 Extremities: + R hip incision c/d/i, Distally NVI. + R forearm and hand in splint, able to move fingers, distally NVI Skin: Warm, no rash Results & Data Results & Data Vital Signs (Past 12 Hours) Vital Signs Temp Pulse Resp BP Pulse Ox O2 Del Method 04/18/23 07:41 36.7 C 76 18 120/68 96 Room Air Laboratory Results [facility] 04/18/23 06:47 Sodium 136 Potassium 3.8 Chloride 100 Carbon Dioxide 31 BUN 12 Creatinine 0.79 Glucose 93 Calcium 8.6 Diagnostic Findings Hip/Pelvis X-Ray 04/12/23 15:00 XR hip RT 2V w pelvis HISTORY: 82 years-old Female fall, likely frx acute right hip pain status post fall COMPARISON: None TECHNIQUE: AP view of the pelvis with 2 views of the right hip FINDINGS: Moderate osteoarthritis of the hips. There is an acute fracture with probable mild comminution involving the right femoral neck which appears to be transcervical. Mild impaction with 2.3 cm of superior displacement of the distal fracture fragment. No dislocation or additional acute fracture identified. Arterial calcifications. IMPRESSION: 1. Acute mildly impacted and displaced transcervical right femoral fracture. 2. No dislocation. ACT 112: Negative or not required by law. The above report was generated using voice recognition software. It may contain grammatical, syntax or spelling errors. Electronically signed by: Abhishek Mota M.D. 04/12/2023 4:38 PM Ribs w/Chest X-Ray 04/12/23 15:00 XR ribs RT min 2V w CXR1V HISTORY: 82 years-old Female fall, R lateral rib pain acute right-sided rib pain status post fall COMPARISON: None TECHNIQUE: AP view of the chest with 4 views of the right ribs FINDINGS: Cardiomediastinal and hilar silhouettes are within normal limits. No pneumothorax, pleural effusion, airspace consolidation or pulmonary edema. Pleural thickening at the lung apices. Degenerative changes of the shoulders and spine. No acute displaced rib fractures identified. IMPRESSION: 1. No acute process of the chest. 2. No acute displaced rib fracture or pneumothorax identified. ACT 112: Negative or not required by law. The above report was generated using voice recognition software. It may contain grammatical, syntax or spelling errors. Electronically signed by: Abhishek Mota M.D. 04/12/2023 4:41 PM Wrist X-Ray 04/12/23 15:00 XR wrist RT min 3V routine HISTORY: 82 years-old Female pain post fall acute pain of the right wrist COMPARISON: None TECHNIQUE: 4 views of the right breast FINDINGS: Acute intra-articular distal radial mildly impacted fracture demonstrates a few millimeters of lateral displacement with 7 mm dorsal displacement and mild apex volar angulation. Acute minimally displaced ulnar styloid fracture. Moderate osteoarthritis with indeterminate subcentimeter bone fragment lateral to the trapezium. No acute carpal bone fracture identified. IMPRESSION: 1. Acute, mildly impacted and displaced comminuted intra-articular distal radial fracture. 2. Acute minimally displaced ulnar styloid fracture. ACT 112: Negative or not required by law. The above report was generated using voice recognition software. It may contain grammatical, syntax or spelling errors. Electronically signed by: Abhishek Mota M.D. 04/12/2023 4:37 PM Tibia/Fibula X-Ray 04/12/23 21:41 XR tibia fibula RT 2V CLINICAL HISTORY: pain secondary to fall. Right lower leg pain. COMPARISON STUDY: None. FINDINGS: The bones are osteopenic. No acute fracture or dislocation within the right tibia or fibula. Vascular calcifications are noted. No radiopaque foreign bodies. IMPRESSION: No fractures within the right lower leg. ACT 112: Negative or not required by law. Electronically signed by: Julián Del Toro M.D. 04/13/2023 8:15 AM Hip X-Ray 04/13/23 13:10 AP PELVIS, CROSSTABLE LATERAL RIGHT HIP History: Right total hip arthroplasty. Right hip fracture. Postop. FINDINGS: The patient is status post a right hip hemiarthroplasty. The hardware is intact. No fracture or dislocation. Skin elenita are in place. IMPRESSION: Right hip hemiarthroplasty. No evidence for hardware complication ACT 112: Negative or not required by law. Electronically signed by: Julián Del Toro M.D. 04/13/2023 2:19 PM KUB X-Ray 04/17/23 11:42 KUB HISTORY: Acute generalized abdominal pain eval for SBO COMPARISON: Right hip radiographs 04/13/2023. FINDINGS: Nonobstructive bowel gas pattern. Moderate colonic fecal retention. Lucencies within the abdominal left upper quadrant likely represent intraluminal air within the splenic flexure surrounding the stool contents. No renal calculi. No ureteral calculi. No pneumoperitoneum or pneumatosis. Right hip arthroplasty with overlying skin elenita. Degenerative changes of the spine, pelvis and left hip. No fracture. IMPRESSION: 1. Nonobstructive bowel gas pattern. 2. Moderate colonic fecal retention. ACT 112: Negative or not required by law. The above report was generated using voice recognition software. It may contain grammatical, syntax or spelling errors. Electronically signed by: Abhishek Mota M.D. 04/17/2023 1:27 PM Wrist X-Ray 04/18/23 08:00 XR wrist RT 2V CLINICAL HISTORY: fracture COMPARISON: Right wrist radiographs April 12, 2023. FINDINGS: Overlying cast is noted. Alignment of the comminuted displaced intra- articular fracture of the right radius is similar to prior radiographs. Minimall y displaced fracture of the ulnar styloid is unchanged. There are no additional fractures. IMPRESSION: No change in alignment of the distal right radial and ulnar fractures since prior radiographs. ACT 112: Negative or not required by law. Electronically signed by: Britton Barrera M.D. 04/18/2023 9:09 AM (1) Closed right hip fracture Encounter type: initial encounter Qualified Code(s): S72.001A - Fracture of unspecified part of neck of right femur, initial encounter for closed fracture
[2023-04-18] MEDS ORDERED: LACTULOSE SYRUP 20 GM/30 ML UDC PO ONE (15:33)
[2023-04-18] MEDS: ATORVASTATIN 40 MG TAB PO SCH (19:21)
[2023-04-18] MEDS: EZETIMIBE 10 MG TAB PO SCH (19:22)
[2023-04-18] MEDS: lisinopril 2.5 MG TAB PO SCH (19:22)
[2023-04-18] MEDS: MONTELUKAST SODIUM 10 MG TABLET PO SCH (19:23)
[2023-04-19] MEDS: PANTOprazole 40 MG TAB PO SCH (06:00)
[2023-04-19] MEDS: ACETAMINOPHEN 500 MG TAB PO SCH ×3 (06:00→22:36)
[2023-04-19] MEDS: oxyCODONE HCL IR 5 MG TAB (IMMEDIATE RELEASE) PO PRN (08:21)
[2023-04-19] MEDS: DOCUSATE SODIUM 100 MG CAP PO SCH ×2 (08:21→20:27)
[2023-04-19] MEDS: amLODIPine BESYLATE 5 MG TAB PO SCH (08:21)
[2023-04-19] MEDS: CITALOPRAM 20 MG TAB PO SCH (08:21)
[2023-04-19] MEDS: CHOLECALCIFEROL 5,000 UNITS 125 MCG TAB PO SCH (08:21)
[2023-04-19] MEDS: APIXABAN 2.5 MG TAB PO SCH ×2 (08:22→20:27)
[2023-04-19] MEDS: ONDANSETRON 4 MG OD TAB PO PRN (09:15)
--- NOTE | 2023-04-19 11:05 | Orthopedic Progress Note ---
Date of Service April 19, 2023 Assessment & Plan (1) S/P hip hemiarthroplasty: (2) Right wrist fracture: Plan POD 6 s/p Right hip hemiarthroplasty by Dr. Prajapati, Right wrist intra- articular, displaced, distal radius and ulnar styloid fracture in sugar tongue splint WBAT with platform walker right lower extremity, nonweightbearing right upper extremity remain in sugar tongue splint Abduction pillow and posterior hip precautions PT/OT Diet - regular Frequently ice and elevate DVT prophylaxis: Eliquis 2.5 mg twice a day 4-6 weeks, compression stockings and SCDs in the hospital. Continue to monitor for signs fo DVTs. Educated patient on this as well. Pain control: Tylenol 1000mg q 8hrs, oxycodone 5-10mg q4-6 hrs PRN for moderate pain, Dilaudid 0.25mg IV q 6hrs PRN for severe breakthrough pain Continue bowel regiment Dressing: Prevena was applied 04/15 Case management for discharge needs patient will require short-term rehab facility. Requesting [facility] Follow up as scheduled with [facility] in [address] Prajapati. Prevena will need to be removed in 1 week and this can be done at the rehab facility. Admission and Anticipated Discharge Date Admission Date: April 12, 2023 Subjective This 82-year-old female seen this morning following her hemiarthroplasty of the right hip and for follow-up of a right wrist fracture. Patient states she is doing much better today than yesterday. Patient again had a few episodes of nausea last night states that she is most prior to this morning after receiving IV Zofran. She states that the pain is well controlled with p.o. pain medication. She states she has met with case management and they are trying to obtain authorization to allow her to go to a rehab facility. Currently she denies chest pain, shortness of breath, fever, chills, sweats, lethargy, nausea, vomiting, diarrhea or difficulty voiding. Review of Systems Review of Systems: All systems reviewed & are unremarkable except as noted in Subjective Physical Exam Physical Exam: Right lower extremity: Prevena is in place and functioning appropriately. Patient is able to perform an active straight leg raise test. She is able to actively dorsi and plantarflex her foot without difficulty. She tolerates logroll testing. She experiences some referred pain to the hip with light passive hip flexion as well as with extremely light passive internal and external hip rotation. She is neurovascularly intact. Her peripheral pulses are 2+. Her capillary fill is less than 2 seconds. Right upper extremity: Sugar-tong dressing was kept in place. Patient does have significant edema in her digits but is able to move them and detect light sensation to touch. She has full range of motion in her shoulder. She is neurovascularly intact. Results & Data Vital Signs (Past 12 Hours) Vital Signs Temp Pulse Resp BP Pulse Ox O2 Del Method 04/19/23 07:52 36.9 C 58 L 16 126/57 L 96 Room Air Diagnostic Findings Laboratory Results WBC 8.96 K/ul (4.8-10.8) 04/15/23 05:39 RBC 3.22 M/uL (4.20-5.40) L 04/15/23 05:39 Hgb 9.6 g/dl (12.0-16.0) L 04/16/23 06:14 Hct 28.9 % (37.0-47.0) L 04/16/23 06:14 MCV 91.0 fL (80.0-100.0) 04/15/23 05:39 MCH 29.8 pg (25.0-34.0) 04/15/23 05:39 MCHC 32.8 g/dL (32.0-36.0) 04/15/23 05:39 RDW Std Deviation 43.8 fL (36.4-46.3) 04/15/23 05:39 RDW Coeff of Pamela 13.2 % (11.5-14.5) 04/15/23 05:39 Plt Count 147 K/uL (130-400) 04/15/23 05:39 MPV 10.7 fL (9.4-12.4) 04/15/23 05:39 Immature Gran % (Auto) 0.4 % 04/14/23 06:05 Neut % (Auto) 78.5 % 04/14/23 06:05 Lymph % (Auto) 9.0 % 04/14/23 06:05 Sebastian % (Auto) 12.0 % 04/14/23 06:05 Eos % (Auto) 0.0 % 04/14/23 06:05 Baso % (Auto) 0.1 % 04/14/23 06:05 Neut # (Auto) 8.97 K/uL (1.40-6.50) H 04/14/23 06:05 Lymph # (Auto) 1.03 K/uL (1.2-3.4) L 04/14/23 06:05 Sebastian # (Auto) 1.37 K/uL (0.11-0.59) H 04/14/23 06:05 Eos # (Auto) 0.00 K/uL (0-0.50) 04/14/23 06:05 Baso # (Auto) 0.01 K/uL (0-0.2) 04/14/23 06:05 Immature Gran # (Auto) 0.05 K/uL (0.01-0.20) 04/14/23 06:05 Sodium 136 mmol/L (136-145) 04/18/23 06:47 Potassium 3.8 mmol/L (3.5-5.1) 04/18/23 06:47 Chloride 100 mmol/L (98-107) 04/18/23 06:47 Carbon Dioxide 31 mmol/L (21-32) 04/18/23 06:47 Anion Gap 5 (3-11) 04/18/23 06:47 BUN 12 mg/dl (6-23) 04/18/23 06:47 Creatinine 0.79 mg/dl (0.6-1.2) 04/18/23 06:47 Est Cr Clr Drug Dosing 53.4 ml/min 04/18/23 06:47 Est GFR ( Amer) 80.8 ml/min 04/18/23 06:47 Est GFR (Non-Af Amer) 69.7 ml/min 04/18/23 06:47 BUN/Creatinine Ratio 15.2 (10-20) 04/18/23 06:47 Glucose 93 mg/dl (70-99(Fasting)) 04/18/23 06:47 Calcium 8.6 mg/dl (8.6-10.3) 04/18/23 06:47 Total Bilirubin 0.5 mg/dl (0.2-1.0) 04/12/23 14:39 AST 28 U/L (13-39) 04/12/23 14:39 ALT 20 U/L (7-52) 04/12/23 14:39 Alkaline Phosphatase 96 U/L (34-104) 04/12/23 14:39 Total Protein 6.8 gm/dl (6.0-8.3) 04/12/23 14:39 Albumin 4.2 gm/dl (3.4-5.0) 04/12/23 14:39 Globulin 2.6 gm/dl (2.5-4.0) 04/12/23 14:39 Albumin/Globulin Ratio 1.6 (0.9-2) 04/12/23 14:39 Lipase 24 U/L (11-82) 04/12/23 14:39 25-OH Vitamin D Total 29.1 ng/ml (30-100) L 04/14/23 06:05 Urine Color Yellow 04/12/23 23:48 Urine Appearance Clear (Clear) 04/12/23 23:48 Urine pH 5.5 (4.5-7.5) 04/12/23 23:48 Ur Specific [place] 1.022 (1.000-1.030) 04/12/23 23:48 Urine Protein Negative (Negative) 04/12/23 23:48 Urine Glucose (UA) Negative (Negative) 04/12/23 23:48 Urine Ketones Trace (Negative) H 04/12/23 23:48 Urine Blood Negative (Negative) 04/12/23 23:48 Urine Nitrite Negative (Negative) 04/12/23 23:48 Urine Bilirubin Negative (Negative) 04/12/23 23:48 Urine Urobilinogen Negative (Negative) 04/12/23 23:48 Ur Leukocyte Esterase Negative (Negative) 04/12/23 23:48 Impressions Hip/Pelvis X-Ray 04/12/23 15:00 XR hip RT 2V w pelvis HISTORY: 82 years-old Female fall, likely frx acute right hip pain status post fall COMPARISON: None TECHNIQUE: AP view of the pelvis with 2 views of the right hip FINDINGS: Moderate osteoarthritis of the hips. There is an acute fracture with probable mild comminution involving the right femoral neck which appears to be transcervical. Mild impaction with 2.3 cm of superior displacement of the distal fracture fragment. No dislocation or additional acute fracture identified. Arterial calcifications. IMPRESSION: 1. Acute mildly impacted and displaced transcervical right femoral fracture. 2. No dislocation. ACT 112: Negative or not required by law. The above report was generated using voice recognition software. It may contain grammatical, syntax or spelling errors. Electronically signed by: Abhishek Mota M.D. 04/12/2023 4:38 PM Ribs w/Chest X-Ray 04/12/23 15:00 XR ribs RT min 2V w CXR1V HISTORY: 82 years-old Female fall, R lateral rib pain acute right-sided rib pain status post fall COMPARISON: None TECHNIQUE: AP view of the chest with 4 views of the right ribs FINDINGS: Cardiomediastinal and hilar silhouettes are within normal limits. No pneumothorax, pleural effusion, airspace consolidation or pulmonary edema. Pleural thickening at the lung apices. Degenerative changes of the shoulders and spine. No acute displaced rib fractures identified. IMPRESSION: 1. No acute process of the chest. 2. No acute displaced rib fracture or pneumothorax identified. ACT 112: Negative or not required by law. The above report was generated using voice recognition software. It may contain grammatical, syntax or spelling errors. Electronically signed by: Abhishek Mota M.D. 04/12/2023 4:41 PM Tibia/Fibula X-Ray 04/12/23 21:41 XR tibia fibula RT 2V CLINICAL HISTORY: pain secondary to fall. Right lower leg pain. COMPARISON STUDY: None. FINDINGS: The bones are osteopenic. No acute fracture or dislocation within the right tibia or fibula. Vascular calcifications are noted. No radiopaque foreign bodies. IMPRESSION: No fractures within the right lower leg. ACT 112: Negative or not required by law. Electronically signed by: Julián Del Toro M.D. 04/13/2023 8:15 AM Hip X-Ray 04/13/23 13:10 AP PELVIS, CROSSTABLE LATERAL RIGHT HIP History: Right total hip arthroplasty. Right hip fracture. Postop. FINDINGS: The patient is status post a right hip hemiarthroplasty. The hardware is intact. No fracture or dislocation. Skin elenita are in place. IMPRESSION: Right hip hemiarthroplasty. No evidence for hardware complication ACT 112: Negative or not required by law. Electronically signed by: Julián Del Toro M.D. 04/13/2023 2:19 PM KUB X-Ray 04/17/23 11:42 KUB HISTORY: Acute generalized abdominal pain eval for SBO COMPARISON: Right hip radiographs 04/13/2023. FINDINGS: Nonobstructive bowel gas pattern. Moderate colonic fecal retention. Lucencies within the abdominal left upper quadrant likely represent intraluminal air within the splenic flexure surrounding the stool contents. No renal calculi. No ureteral calculi. No pneumoperitoneum or pneumatosis. Right hip arthroplasty with overlying skin elenita. Degenerative changes of the spine, pelvis and left hip. No fracture. IMPRESSION: 1. Nonobstructive bowel gas pattern. 2. Moderate colonic fecal retention. ACT 112: Negative or not required by law. The above report was generated using voice recognition software. It may contain grammatical, syntax or spelling errors. Electronically signed by: Abhishek Mota M.D. 04/17/2023 1:27 PM Wrist X-Ray 04/18/23 08:00 XR wrist RT 2V CLINICAL HISTORY: fracture COMPARISON: Right wrist radiographs April 12, 2023. FINDINGS: Overlying cast is noted. Alignment of the comminuted displaced intra- articular fracture of the right radius is similar to prior radiographs. Minimally displaced fracture of the ulnar styloid is unchanged. There are no additional fractures. IMPRESSION: No change in alignment of the distal right radial and ulnar fractures since prior radiographs. ACT 112: Negative or not required by law. Electronically signed by: Britton Barrera M.D. 04/18/2023 9:09 AM (2) Right wrist fracture Encounter type: initial encounter Fracture type: closed Qualified Code(s): S62.101A - Fracture of unspecified carpal bone, right wrist, initial encounter for closed fracture
--- NOTE | 2023-04-19 16:28 | Hospitalist Progress Note ---
Date of Service April 19, 2023 Assessment & Plan (1) Closed right hip fracture: Plan Closed right hip fracture:d/t mechanical fall. ortho consulted- s/p surgery on 04/13 by Aram Prajapati MD. Eliquis 2.5 mg twice a day 4-6 weeks. Monitor H&H closely. c/w analgesia, PT/OT. Per ortho, WBAT with walker right lower extremity, f/u ortho on dc. Follow up as scheduled with [facility] in [address] Prajapati. Prevena will need to be removed in 1 week and this can be done at the rehab facility. Right wrist fracture: Orthopedics on board, currently on splint. Nonweightbearing right upper extremity. Continue analgesia. Acute Blood loss anemia, likely 2/2 operative loss: Hb drop from above 13 to just below 10 perioperatively. H&H stable. On Eliquis per Ortho. Nausea/vomitin episodes of emesis this morning, improved with Zofran. KUB obtained to rule out SBO - showing nonobstructive bowel gas pattern, moderate colonic fecal retention. Augment bowel regimen Vitamin D deficiency: Vitamin D level 29.1, vitamin D started at 5000 units daily. Transition to 1000 units daily upon discharge. Other chronic medical conditions: Continue with/resume home meds as and when able Chronic congestive heart failure: Patient unsure about the type of CHF she has, continue home Lasix. Currently euvolemic. Coronary artery disease: Stable, continue statin therapy. Neutrophilic leukocytosis: Likely reactive due to bone fracture, continue to monitor. HLD: Continue statin therapy HTN: Amlodipine and lisinopril resumed as patient hypertensive yesterday DVT prophylaxis: Patient on Eliquis 2.5 Mg twice daily PT/OT, CM to assist with DC planning Dispo: awaiting placement Peer to peer 04/18 - rehab denial upheld- CM assisting w/ other rehab options. Admission and Anticipated Discharge Date Admission Date: April 12, 2023 Subjective Seen and examined in 319. Feeling better overnight. reports improvement in nausea and vomiting. Pain at hip and wrist are controlled. Denies brittaney abdomin al pain or bloating. No F/C, lightheadedness, CP, SOB, dysuria or diarrhea. Physical Exam Physical Exam: GENERAL: Alert and oriented x3. NAD, on RA. HEENT: No pallor, no icterus. Pupils equal, round and reactive to light. Oral mucosa moist. NECK: No JVD, no neck masses. HEART: S1 and S2 heard. Regular rate and rhythm. No murmur, no gallop. RESPIRATORY SYSTEM: Normal AP diameter. No accessory muscle use. No wheezing, no crackles. ABDOMEN: Soft, bowel sounds present, nontender, no distention. CENTRAL NERVOUS SYSTEM: No facial droop. Speech is clear. Obeys simple commands. Moves extremities. EXTREMITIES: No edema, no erythema seen. Rt hip incision c/d/i. Distal NV status wnl. Rt forearm in splint. Distal NV status wnl. Results & Data Results & Data Vital Signs (Past 12 Hours) Vital Signs Temp Pulse Resp BP Pulse Ox O2 Del Method 04/19/23 16:18 36.6 C 59 L 16 104/67 97 Room Air 04/19/23 07:52 36.9 C 58 L 16 126/57 L 96 Room Air (1) Closed right hip fracture Encounter type: initial encounter Qualified Code(s): S72.001A - Fracture of unspecified part of neck of right femur, initial encounter for closed fracture
[2023-04-19] MEDS: ATORVASTATIN 40 MG TAB PO SCH (20:27)
[2023-04-19] MEDS: lisinopril 2.5 MG TAB PO SCH (20:27)
[2023-04-19] MEDS: MONTELUKAST SODIUM 10 MG TABLET PO SCH (20:28)
[2023-04-19] MEDS: EZETIMIBE 10 MG TAB PO SCH (20:28)
[2023-04-20] MEDS: oxyCODONE HCL IR 5 MG TAB (IMMEDIATE RELEASE) PO PRN ×2 (04:17→18:39)
[2023-04-20] MEDS ORDERED: LORATADINE 10 MG TAB PO ONE (05:15)
[2023-04-20] MEDS: PANTOprazole 40 MG TAB PO SCH (06:00)
[2023-04-20] MEDS: ACETAMINOPHEN 500 MG TAB PO SCH ×3 (06:00→22:45)
[2023-04-20 06:28] LABS: Est GFR (African American) 94.4 ml/min; Est GFR (Non-African American) 81.5 ml/min
[2023-04-20] MEDS: CHOLECALCIFEROL 5,000 UNITS 125 MCG TAB PO SCH (08:02)
[2023-04-20] MEDS: DOCUSATE SODIUM 100 MG CAP PO SCH ×2 (08:02→20:57)
[2023-04-20] MEDS: CITALOPRAM 20 MG TAB PO SCH (08:02)
[2023-04-20] MEDS: amLODIPine BESYLATE 5 MG TAB PO SCH (08:03)
[2023-04-20] MEDS: APIXABAN 2.5 MG TAB PO SCH ×2 (08:03→20:57)
[2023-04-20] MEDS: ONDANSETRON 4 MG OD TAB PO PRN (10:01)
--- NOTE | 2023-04-20 15:37 | Hospitalist Progress Note ---
Date of Service April 20, 2023 Assessment & Plan (1) Closed right hip fracture: Plan Closed right hip fracture:d/t mechanical fall. ortho consulted- s/p surgery on 04/13 by Aram Prajapati MD. Eliquis 2.5 mg twice a day 4-6 weeks. Monitor H&H closely. c/w analgesia, PT/OT. Per ortho, WBAT with walker right lower extremity, f/u ortho on dc. Follow up as scheduled with [facility] in [address] Prajapati. Prevena will need to be removed in 1 week and this can be done at the rehab facility. Right wrist fracture: Orthopedics on board, currently on splint. Nonweightbearing right upper extremity. Continue analgesia. Acute Blood loss anemia, likely 2/2 operative loss: Hb drop from above 13 to just below 10 perioperatively. H&H stable. On Eliquis per Ortho. Nausea/vomitin episodes of emesis this morning, improved with Zofran. KUB obtained to rule out SBO - showing nonobstructive bowel gas pattern, moderate colonic fecal retention. Augment bowel regimen Vitamin D deficiency: Vitamin D level 29.1, vitamin D started at 5000 units daily. Transition to 1000 units daily upon discharge. Other chronic medical conditions: Continue with/resume home meds as and when able Chronic congestive heart failure: Patient unsure about the type of CHF she has, continue home Lasix. Currently euvolemic. Coronary artery disease: Stable, continue statin therapy. Neutrophilic leukocytosis: Likely reactive due to bone fracture, continue to monitor. HLD: Continue statin therapy HTN: Amlodipine and lisinopril resumed as patient hypertensive yesterday DVT prophylaxis: Patient on Eliquis 2.5 Mg twice daily PT/OT, CM to assist with DC planning Dispo: awaiting placement Peer to peer 04/18 - rehab denial upheld- CM assisting w/ other rehab options. Admission and Anticipated Discharge Date Admission Date: April 12, 2023 Subjective Seen and examined in 319. Feeling better. reports improvement in nausea and vomiting. Pain at hip and wrist are controlled. Denies brittaney abdominal pain or bloating. No F/C, lightheadedness, CP, SOB, dysuria or diarrhea. Physical Exam Physical Exam: GENERAL: Alert and oriented x3. NAD, on RA. HEENT: No pallor, no icterus. Pupils equal, round and reactive to light. Oral mucosa moist. NECK: No JVD, no neck masses. HEART: S1 and S2 heard. Regular rate and rhythm. No murmur, no gallop. RESPIRATORY SYSTEM: Normal AP diameter. No accessory muscle use. No wheezing, no crackles. ABDOMEN: Soft, bowel sounds present, nontender, no distention. CENTRAL NERVOUS SYSTEM: No facial droop. Speech is clear. Obeys simple commands. Moves extremities. EXTREMITIES: No edema, no erythema seen. Rt hip incision c/d/i. Distal NV status wnl. Rt forearm in splint. Distal NV status wnl. Results & Data Results & Data Vital Signs (Past 12 Hours) Vital Signs Temp Pulse Resp BP Pulse Ox O2 Del Method 04/20/23 15:13 36.7 C 60 16 121/59 L 99 Room Air 04/20/23 07:20 36.6 C 55 L 16 114/61 97 Room Air (1) Closed right hip fracture Encounter type: initial encounter Qualified Code(s): S72.001A - Fracture of unspecified part of neck of right femur, initial encounter for closed fracture
[2023-04-20] MEDS: EZETIMIBE 10 MG TAB PO SCH (20:57)
[2023-04-20] MEDS: MONTELUKAST SODIUM 10 MG TABLET PO SCH (20:57)
[2023-04-20] MEDS: lisinopril 2.5 MG TAB PO SCH (20:57)
[2023-04-20] MEDS: ATORVASTATIN 40 MG TAB PO SCH (20:57)
[2023-04-21] MEDS: oxyCODONE HCL IR 5 MG TAB (IMMEDIATE RELEASE) PO PRN ×4 (04:05→19:41)
[2023-04-21] MEDS: PANTOprazole 40 MG TAB PO SCH (06:06)
[2023-04-21] MEDS: ACETAMINOPHEN 500 MG TAB PO SCH ×3 (06:06→22:56)
[2023-04-21 06:32] LABS: Hematocrit (blood only) 27.2 % (37.0-47.0); Hemoglobin 9.1 g/dl (12.0-16.0); Mean Corpuscular Hemoglobin 29.9 pg (25.0-34.0); Mean Corpuscular Hgb Conc 33.5 g/dL (32.0-36.0); Mean Corpuscular Volume 89.5 fL (80.0-100.0); Mean Platelet Volume 9.5 fL (9.4-12.4); Platelet Count 326 K/uL (130-400); RDW Coefficient of Variation 13.1 % (11.5-14.5); RDW Standard Deviation 43.1 fL (36.4-46.3); Red Blood Count 3.04 M/uL (4.20-5.40); White Blood Count 6.72 K/ul (4.8-10.8)
--- NOTE | 2023-04-21 10:02 | Orthopedic Progress Note ---
Date of Service April 21, 2023 Assessment & Plan (1) S/P hip hemiarthroplasty: Plan: Reinforced total hip precautions. Weight-bear as tolerated. longterm facility placement is pending. Will change the incisional VAC dressing in the next day or so. Radiographs of the right wrist reviewed from Friday demonstrate that the distal radius fracture is impacted and apex volar angulated. Unchanged compared to previous. She is left-hand dominant. There is a history of prior fracture. This is a very small articular fragment and disturbance will likely necessitate open reduction. There is some dorsal angulation present. I think given overall situation that leaving as is will yield a reasonable functional result. We will keep her in the splint for another week or 2 with serial x-rays and eventually converted over to a cast. (2) Right wrist fracture: (3) Closed right hip fracture: Admission and Anticipated Discharge Date Admission Date: April 12, 2023 Subjective Resting comfortably. Spoke with PT. She was up and about reasonably well. Pain is well controlled. Total hip precautions reinforced. Physical Exam Physical Exam: Right arm splint grossly intact. Rewrapped. Swelling is minimal. Gross neurovascular function intact in the right hand. On the right leg she can flex and extend the knee and ankle. Results & Data Vital Signs (Past 12 Hours) Vital Signs Temp Pulse Resp BP Pulse Ox O2 Del Method 04/21/23 07:31 36.7 C 52 L 16 125/65 97 Room Air (2) Right wrist fracture Encounter type: initial encounter Fracture type: closed Qualified Code(s): S62.101A - Fracture of unspecified carpal bone, right wrist, initial encounter for closed fracture (3) Closed right hip fracture Encounter type: initial encounter Qualified Code(s): S72.001A - Fracture of unspecified part of neck of right femur, initial encounter for closed fracture
[2023-04-21] MEDS: ONDANSETRON 4 MG OD TAB PO PRN ×2 (10:33→19:42)
[2023-04-21] MEDS: DOCUSATE SODIUM 100 MG CAP PO SCH ×2 (11:44→20:10)
[2023-04-21] MEDS: CITALOPRAM 20 MG TAB PO SCH (11:45)
[2023-04-21] MEDS: FUROSEMIDE 20 MG TAB PO SCH (11:45)
[2023-04-21] MEDS: APIXABAN 2.5 MG TAB PO SCH ×2 (11:45→20:11)
[2023-04-21] MEDS: amLODIPine BESYLATE 5 MG TAB PO SCH (11:45)
[2023-04-21] MEDS: CHOLECALCIFEROL 5,000 UNITS 125 MCG TAB PO SCH (11:45)
--- NOTE | 2023-04-21 15:32 | Hospitalist Progress Note ---
Date of Service April 21, 2023 Assessment & Plan (1) Closed right hip fracture: Plan Closed right hip fracture:d/t mechanical fall. ortho consulted- s/p surgery on 04/13 by Aram Prajapati MD. Eliquis 2.5 mg twice a day 4-6 weeks. Monitor H&H closely. c/w analgesia, PT/OT. Per ortho, WBAT with walker right lower extremity, f/u ortho on dc. Follow up as scheduled with [facility] in [address] Prajapati. Prevena will need to be removed in next few days and this can be done at the rehab facility. Right wrist fracture: Orthopedics on board, currently on splint. Nonweightbearing right upper extremity. Continue analgesia. Acute Blood loss anemia, likely 2/2 operative loss: Hb drop from above 13 to just below 10 perioperatively. H&H stable. On Eliquis per Ortho. Nausea/vomitin episodes of emesis this morning, improved with Zofran. KUB obtained to rule out SBO - showing nonobstructive bowel gas pattern, moderate colonic fecal retention. Augment bowel regimen Vitamin D deficiency: Vitamin D level 29.1, vitamin D started at 5000 units daily. Transition to 1000 units daily upon discharge. Other chronic medical conditions: Continue with/resume home meds as and when able Chronic congestive heart failure: Patient unsure about the type of CHF she has, continue home Lasix. Currently euvolemic. Coronary artery disease: Stable, continue statin therapy. Neutrophilic leukocytosis: Likely reactive due to bone fracture, continue to monitor. HLD: Continue statin therapy HTN: Amlodipine and lisinopril resumed as patient hypertensive yesterday DVT prophylaxis: Patient on Eliquis 2.5 Mg twice daily PT/OT, CM to assist with DC planning Dispo: awaiting placement Peer to peer 04/18 - rehab denial upheld- CM assisting w/ other rehab options. Admission and Anticipated Discharge Date Admission Date: April 12, 2023 Subjective Seen and examined in 319. Feeling better. reports improvement in nausea and vomiting. Pain at hip and wrist are controlled. Denies brittaney abdominal pain or bloating. No F/C, lightheadedness, CP, SOB, dysuria or diarrhea. Physical Exam Physical Exam: GENERAL: Alert and oriented x3. NAD, on RA. HEENT: No pallor, no icterus. Pupils equal, round and reactive to light. Oral mucosa moist. NECK: No JVD, no neck masses. HEART: S1 and S2 heard. Regular rate and rhythm. No murmur, no gallop. RESPIRATORY SYSTEM: Normal AP diameter. No accessory muscle use. No wheezing, no crackles. ABDOMEN: Soft, bowel sounds present, nontender, no distention. CENTRAL NERVOUS SYSTEM: No facial droop. Speech is clear. Obeys simple commands. Moves extremities. EXTREMITIES: No edema, no erythema seen. Rt hip incision c/d/i w/ wound vac. Distal NV status wnl. Rt forearm in splint. Distal NV status wnl. Results & Data Results & Data Vital Signs (Past 12 Hours) Vital Signs Temp Pulse Resp BP Pulse Ox O2 Del Method 04/21/23 14:46 36.5 C 57 L 16 107/59 L 98 Room Air 04/21/23 07:31 36.7 C 52 L 16 125/65 97 Room Air (1) Closed right hip fracture Encounter type: initial encounter Qualified Code(s): S72.001A - Fracture of unspecified part of neck of right femur, initial encounter for closed fracture
[2023-04-21] MEDS: MONTELUKAST SODIUM 10 MG TABLET PO SCH (20:10)
[2023-04-21] MEDS: EZETIMIBE 10 MG TAB PO SCH (20:10)
[2023-04-21] MEDS: ATORVASTATIN 40 MG TAB PO SCH (20:10)
[2023-04-21] MEDS: lisinopril 2.5 MG TAB PO SCH (20:11)
[2023-04-22] MEDS: PANTOprazole 40 MG TAB PO SCH (06:15)
[2023-04-22] MEDS: ACETAMINOPHEN 500 MG TAB PO SCH (06:15)
[2023-04-22] MEDS: APIXABAN 2.5 MG TAB PO SCH (08:20)
[2023-04-22] MEDS: CHOLECALCIFEROL 5,000 UNITS 125 MCG TAB PO SCH (08:20)
[2023-04-22] MEDS: DOCUSATE SODIUM 100 MG CAP PO SCH (08:20)
[2023-04-22] MEDS: amLODIPine BESYLATE 5 MG TAB PO SCH (08:21)
[2023-04-22] MEDS: CITALOPRAM 20 MG TAB PO SCH (08:21)
--- NOTE | 2023-04-22 09:14 | Orthopedic Progress Note ---
Date of Service April 22, 2023 Assessment & Plan (1) S/P hip hemiarthroplasty: Plan: Patient is postop day #9 status post a right hip hemiarthroplasty with Dr. Kim Turner and closed treatment with sugar-tong splint for distal radius fracture. She is doing well as anticipated. The Prevena dressing was removed today. New dressing was applied with Xeroform, gauze and Tegaderm. This can stay in place until she is seen in the office for staple removal. She may get area wet not to submerge. She was cautioned and advised on hip precautions and to continue to use the abduction pillow while in bed. She is transitioning today to rehabilitation. She may continue to use a walker recommend platform attachment for the right upper extremity. She was advised not to push and pull through the upper extremity otherwise. She was encouraged to continue to wiggle fingers bend elbow as tolerated and elevate daily to avoid edema. She is scheduled for follow-up with Dr. Bowen on 04/29 in our outpatient office. At that time anticipate staple removal imaging and possible casting of the right upper extremity. She will continue with the Eliquis for DVT prophylaxis anticipate for approximately 4 weeks postoperatively. Patient was advised if any questions, concerns or change in symptoms to contact our outpatient office at [phone]. Present on Admission?: Yes (2) Right wrist fracture: Plan: Please see above. Present on Admission?: Yes Admission and Anticipated Discharge Date Admission Date: April 12, 2023 Subjective Patient was seen bedside this morning. She is postop day #9 status post a right hemiarthroplasty and right distal radius fracture closed treatment in a sugar- tong splint. She is alert and oriented x3 pleasant and conversive. She states her hip pain is manageable with the pain medication. She rates the pain as 5/10 currently. She states the splint is adequate in feels the pain medication is helping with her pain in the wrist. She denies any numbness or tingling in her arm fingers or lower extremity. She is anticipated to be transitioning to [facility] for rehabilitation. She denies any fever, chills, chest pain, dizziness, shortness of breath, nausea, vomiting, or calf pain. Review of Systems Review of Systems: Please refer to HPI Physical Exam Physical Exam: General: Patient is sitting upright in bed she is alert and oriented x3 answering questions appropriately. She does not appear to be in any distress at this time. She is pleasant and conversive Integumentary /musculoskeletal: Skin is normal in color and temperature. Minimal edema in the right lower extremity. Prevena dressing is in place working appropriately. This was removed . Her incision is well approximated with elenita. Negative for erythema drainage or signs of infection. Negative for any fluctuance or induration surrounding this area. This is nontender with palpation.she tolerates gentle active assist hip and knee flexion. She tolerates passive internal and external rotation. She required some assistance to do straight leg raise. She is able to dorsiflex and plantarflex ankle. Calf is soft and nontender. Dorsal pedis pulse 1 Right upper extremity is elevated on a pillow. Splint is in place. No edema is present in digits. Skin is normal in color and temperature. She is able to flex and extend thumb and digits. She is able to AB duct thumb and all digits. She is able to resist against this as well. Sensation is intact over right lower extremity and right upper extremity. Capillary refill of right digits is less than 2 seconds. Results & Data Vital Signs (Past 12 Hours) Vital Signs Temp Pulse Resp BP Pulse Ox O2 Del Method 04/22/23 08:15 58 L 04/22/23 07:08 36.6 C 53 L 16 111/61 98 Room Air Laboratory Results Lab Results 04/12/23 04/12/23 04/12/23 Range/Units 14:39 14:39 23:48 WBC 13.02 H (4.8-10.8) K/ul RBC 4.65 (4.20-5.40) M/uL Hgb 13.9 (12.0-16.0) g/dl Hct 41.9 (37.0-47.0) % MCV 90.1 (80.0-100.0) fL MCH 29.9 (25.0-34.0) pg MCHC 33.2 (32.0-36.0) g/dL RDW Std Deviation 42.6 (36.4-46.3) fL RDW Coeff of Pamela 12.9 (11.5-14.5) % Plt Count 210 (130-400) K/uL MPV 10.3 (9.4-12.4) fL Immature Gran % (Auto) 0.5 % Neut % (Auto) 86.5 % Lymph % (Auto) 6.3 % Lane % (Auto) 6.4 % Eos % (Auto) 0.1 % Baso % (Auto) 0.2 % Neut # (Auto) 11.27 H (1.40-6.50) K/uL Lymph # (Auto) 0.82 L (1.2-3.4) K/uL Lane # (Auto) 0.83 H (0.11-0.59) K/uL Eos # (Auto) 0.01 (0-0.50) K/uL Baso # (Auto) 0.03 (0-0.2) K/uL Immature Gran # (Auto) 0.06 (0.01-0.20) K/uL Sodium 135 L (136-145) mmol/L Potassium 4.2 (3.5-5.1) mmol/L Chloride 103 (98-107) mmol/L Carbon Dioxide 25 (21-32) mmol/L Anion Gap 7 (3-11) BUN 14 (6-23) mg/dl Creatinine 0.96 (0.6-1.2) mg/dl Est Cr Clr Drug Dosing 52.4 ml/min Est GFR ( Amer) 63.8 ml/min Est GFR (Non-Af Amer) 55.1 ml/min BUN/Creatinine Ratio 14.6 (10-20) Glucose 114 H (70-99(Fasting)) mg/dl Calcium 9.3 (8.6-10.3) mg/dl Total Bilirubin 0.5 (0.2-1.0) mg/dl AST 28 (13-39) U/L ALT 20 (7-52) U/L Alkaline Phosphatase 96 (34-104) U/L Total Protein 6.8 (6.0-8.3) gm/dl Albumin 4.2 (3.4-5.0) gm/dl Globulin 2.6 (2.5-4.0) gm/dl Albumin/Globulin Ratio 1.6 (0.9-2) Lipase 24 (11-82) U/L 25-OH Vitamin D Total (30-100) ng/ml Urine Color Yellow Urine Appearance Clear (Clear) Urine pH 5.5 (4.5-7.5) Ur Specific [place] 1.022 (1.000-1.030) Urine Protein Negative (Negative) Urine Glucose (UA) Negative (Negative) Urine Ketones Trace H (Negative) Urine Blood Negative (Negative) Urine Nitrite Negative (Negative) Urine Bilirubin Negative (Negative) Urine Urobilinogen Negative (Negative) Ur Leukocyte Esterase Negative (Negative) 04/13/23 04/13/23 04/14/23 Range/Units 08:32 08:32 06:05 WBC 9.78 11.43 H (4.8-10.8) K/ul RBC 4.42 3.29 L (4.20-5.40) M/uL Hgb 13.0 9.8 L D (12.0-16.0) g/dl Hct 38.9 29.5 L (37.0-47.0) % MCV 88.0 89.7 (80.0-100.0) fL MCH 29.4 29.8 (25.0-34.0) pg MCHC 33.4 33.2 (32.0-36.0) g/dL RDW Std Deviation 43.1 44.1 (36.4-46.3) fL RDW Coeff of Pamela 13.2 13.4 (11.5-14.5) % Plt Count 184 143 (130-400) K/uL MPV 10.3 10.4 (9.4-12.4) fL Immature Gran % (Auto) 0.4 0.4 % Neut % (Auto) 77.2 78.5 % Lymph % (Auto) 11.2 9.0 % Lane % (Auto) 11.0 12.0 % Eos % (Auto) 0.1 0.0 % Baso % (Auto) 0.1 0.1 % Neut # (Auto) 7.54 H 8.97 H (1.40-6.50) K/uL Lymph # (Auto) 1.10 L 1.03 L (1.2-3.4) K/uL Lane # (Auto) 1.08 H 1.37 H (0.11-0.59) K/uL Eos # (Auto) 0.01 0.00 (0-0.50) K/uL Baso # (Auto) 0.01 0.01 (0-0.2) K/uL Immature Gran # (Auto) 0.04 0.05 (0.01-0.20) K/uL Sodium 136 (136-145) mmol/L Potassium 4.2 (3.5-5.1) mmol/L Chloride 105 (98-107) mmol/L Carbon Dioxide 26 (21-32) mmol/L Anion Gap 5 (3-11) BUN 13 (6-23) mg/dl Creatinine 0.78 (0.6-1.2) mg/dl Est Cr Clr Drug Dosing 54.1 ml/min Est GFR ( Amer) 82.1 ml/min Est GFR (Non-Af Amer) 70.8 ml/min BUN/Creatinine Ratio 16.7 (10-20) Glucose 115 H (70-99(Fasting)) mg/dl Calcium 9.1 (8.6-10.3) mg/dl Total Bilirubin (0.2-1.0) mg/dl AST (13-39) U/L ALT (7-52) U/L Alkaline Phosphatase (34-104) U/L Total Protein (6.0-8.3) gm/dl Albumin (3.4-5.0) gm/dl Globulin (2.5-4.0) gm/dl Albumin/Globulin Ratio (0.9-2) Lipase (11-82) U/L 25-OH Vitamin D Total (30-100) ng/ml Urine Color Urine Appearance (Clear) Urine pH (4.5-7.5) Ur Specific [place] (1.000-1.030) Urine Protein (Negative) Urine Glucose (UA) (Negative) Urine Ketones (Negative) Urine Blood (Negative) Urine Nitrite (Negative) Urine Bilirubin (Negative) Urine Urobilinogen (Negative) Ur Leukocyte Esterase (Negative) 04/14/23 04/14/23 04/14/23 Range/Units 06:05 06:05 14:14 WBC (4.8-10.8) K/ul RBC (4.20-5.40) M/uL Hgb 9.9 L (12.0-16.0) g/dl Hct 31.1 L (37.0-47.0) % MCV (80.0-100.0) fL MCH (25.0-34.0) pg MCHC (32.0-36.0) g/dL RDW Std Deviation (36.4-46.3) fL RDW Coeff of Pamela (11.5-14.5) % Plt Count (130-400) K/uL MPV (9.4-12.4) fL Immature Gran % (Auto) % Neut % (Auto) % Lymph % (Auto) % Lane % (Auto) % Eos % (Auto) % Baso % (Auto) % Neut # (Auto) (1.40-6.50) K/uL Lymph # (Auto) (1.2-3.4) K/uL Lane # (Auto) (0.11-0.59) K/uL Eos # (Auto) (0-0.50) K/uL Baso # (Auto) (0-0.2) K/uL Immature Gran # (Auto) (0.01-0.20) K/uL Sodium 136 (136-145) mmol/L Potassium 4.2 (3.5-5.1) mmol/L Chloride 106 (98-107) mmol/L Carbon Dioxide 25 (21-32) mmol/L Anion Gap 5 (3-11) BUN 14 (6-23) mg/dl Creatinine 0.83 (0.6-1.2) mg/dl Est Cr Clr Drug Dosing 50.8 ml/min Est GFR ( Amer) 76.1 ml/min Est GFR (Non-Af Amer) 65.7 ml/min BUN/Creatinine Ratio 16.9 (10-20) Glucose 139 H (70-99(Fasting)) mg/dl Calcium 8.1 L (8.6-10.3) mg/dl Total Bilirubin (0.2-1.0) mg/dl AST (13-39) U/L ALT (7-52) U/L Alkaline Phosphatase (34-104) U/L Total Protein (6.0-8.3) gm/dl Albumin (3.4-5.0) gm/dl Globulin (2.5-4.0) gm/dl Albumin/Globulin Ratio (0.9-2) Lipase (11-82) U/L 25-OH Vitamin D Total 29.1 L (30-100) ng/ml Urine Color Urine Appearance (Clear) Urine pH (4.5-7.5) Ur Specific [place] (1.000-1.030) Urine Protein (Negative) Urine Glucose (UA) (Negative) Urine Ketones (Negative) Urine Blood (Negative) Urine Nitrite (Negative) Urine Bilirubin (Negative) Urine Urobilinogen (Negative) Ur Leukocyte Esterase (Negative) 04/15/23 04/15/23 04/16/23 Range/Units 05:39 05:39 06:14 WBC 8.96 (4.8-10.8) K/ul RBC 3.22 L (4.20-5.40) M/uL Hgb 9.6 L 9.6 L (12.0-16.0) g/dl Hct 29.3 L 28.9 L (37.0-47.0) % MCV 91.0 (80.0-100.0) fL MCH 29.8 (25.0-34.0) pg MCHC 32.8 (32.0-36.0) g/dL RDW Std Deviation 43.8 (36.4-46.3) fL RDW Coeff of Pamela 13.2 (11.5-14.5) % Plt Count 147 (130-400) K/uL MPV 10.7 (9.4-12.4) fL Immature Gran % (Auto) % Neut % (Auto) % Lymph % (Auto) % Lane % (Auto) % Eos % (Auto) % Baso % (Auto) % Neut # (Auto) (1.40-6.50) K/uL Lymph # (Auto) (1.2-3.4) K/uL Lane # (Auto) (0.11-0.59) K/uL Eos # (Auto) (0-0.50) K/uL Baso # (Auto) (0-0.2) K/uL Immature Gran # (Auto) (0.01-0.20) K/uL Sodium 134 L (136-145) mmol/L Potassium 3.9 (3.5-5.1) mmol/L Chloride 101 (98-107) mmol/L Carbon Dioxide 29 (21-32) mmol/L Anion Gap 4 (3-11) BUN 10 (6-23) mg/dl Creatinine 0.73 (0.6-1.2) mg/dl Est Cr Clr Drug Dosing 57.8 ml/min Est GFR ( Amer) 88.9 ml/min Est GFR (Non-Af Amer) 76.7 ml/min BUN/Creatinine Ratio 13.7 (10-20) Glucose 124 H (70-99(Fasting)) mg/dl Calcium 8.3 L (8.6-10.3) mg/dl Total Bilirubin (0.2-1.0) mg/dl AST (13-39) U/L ALT (7-52) U/L Alkaline Phosphatase (34-104) U/L Total Protein (6.0-8.3) gm/dl Albumin (3.4-5.0) gm/dl Globulin (2.5-4.0) gm/dl Albumin/Globulin Ratio (0.9-2) Lipase (11-82) U/L 25-OH Vitamin D Total (30-100) ng/ml Urine Color Urine Appearance (Clear) Urine pH (4.5-7.5) Ur Specific [place] (1.000-1.030) Urine Protein (Negative) Urine Glucose (UA) (Negative) Urine Ketones (Negative) Urine Blood (Negative) Urine Nitrite (Negative) Urine Bilirubin (Negative) Urine Urobilinogen (Negative) Ur Leukocyte Esterase (Negative) 04/17/23 04/18/23 04/20/23 Range/Units 06:28 06:47 05:41 WBC (4.8-10.8) K/ul RBC (4.20-5.40) M/uL Hgb (12.0-16.0) g/dl Hct (37.0-47.0) % MCV (80.0-100.0) fL MCH (25.0-34.0) pg MCHC (32.0-36.0) g/dL RDW Std Deviation (36.4-46.3) fL RDW Coeff of Pamela (11.5-14.5) % Plt Count (130-400) K/uL MPV (9.4-12.4) fL Immature Gran % (Auto) % Neut % (Auto) % Lymph % (Auto) % Lane % (Auto) % Eos % (Auto) % Baso % (Auto) % Neut # (Auto) (1.40-6.50) K/uL Lymph # (Auto) (1.2-3.4) K/uL Lane # (Auto) (0.11-0.59) K/uL Eos # (Auto) (0-0.50) K/uL Baso # (Auto) (0-0.2) K/uL Immature Gran # (Auto) (0.01-0.20) K/uL Sodium 136 (136-145) mmol/L Potassium 3.8 (3.5-5.1) mmol/L Chloride 100 (98-107) mmol/L Carbon Dioxide 31 (21-32) mmol/L Anion Gap 5 (3-11) BUN 12 (6-23) mg/dl Creatinine 0.73 0.79 0.68 (0.6-1.2) mg/dl Est Cr Clr Drug Dosing 57.8 53.4 62.0 ml/min Est GFR ( Amer) 88.9 80.8 94.4 ml/min Est GFR (Non-Af Amer) 76.7 69.7 81.5 ml/min BUN/Creatinine Ratio 15.2 (10-20) Glucose 93 (70-99(Fasting)) mg/dl Calcium 8.6 (8.6-10.3) mg/dl Total Bilirubin (0.2-1.0) mg/dl AST (13-39) U/L ALT (7-52) U/L Alkaline Phosphatase (34-104) U/L Total Protein (6.0-8.3) gm/dl Albumin (3.4-5.0) gm/dl Globulin (2.5-4.0) gm/dl Albumin/Globulin Ratio (0.9-2) Lipase (11-82) U/L 25-OH Vitamin D Total (30-100) ng/ml Urine Color Urine Appearance (Clear) Urine pH (4.5-7.5) Ur Specific [place] (1.000-1.030) Urine Protein (Negative) Urine Glucose (UA) (Negative) Urine Ketones (Negative) Urine Blood (Negative) Urine Nitrite (Negative) Urine Bilirubin (Negative) Urine Urobilinogen (Negative) Ur Leukocyte Esterase (Negative) 04/21/23 Range/Units 06:04 WBC 6.72 (4.8-10.8) K/ul RBC 3.04 L (4.20-5.40) M/uL Hgb 9.1 L (12.0-16.0) g/dl Hct 27.2 L (37.0-47.0) % MCV 89.5 (80.0-100.0) fL MCH 29.9 (25.0-34.0) pg MCHC 33.5 (32.0-36.0) g/dL RDW Std Deviation 43.1 (36.4-46.3) fL RDW Coeff of Pamela 13.1 (11.5-14.5) % Plt Count 326 (130-400) K/uL MPV 9.5 (9.4-12.4) fL Immature Gran % (Auto) % Neut % (Auto) % Lymph % (Auto) % Lane % (Auto) % Eos % (Auto) % Baso % (Auto) % Neut # (Auto) (1.40-6.50) K/uL Lymph # (Auto) (1.2-3.4) K/uL Lane # (Auto) (0.11-0.59) K/uL Eos # (Auto) (0-0.50) K/uL Baso # (Auto) (0-0.2) K/uL Immature Gran # (Auto) (0.01-0.20) K/uL Sodium (136-145) mmol/L Potassium (3.5-5.1) mmol/L Chloride (98-107) mmol/L Carbon Dioxide (21-32) mmol/L Anion Gap (3-11) BUN (6-23) mg/dl Creatinine (0.6-1.2) mg/dl Est Cr Clr Drug Dosing ml/min Est GFR ( Amer) ml/min Est GFR (Non-Af Amer) ml/min BUN/Creatinine Ratio (10-20) Glucose (70-99(Fasting)) mg/dl Calcium (8.6-10.3) mg/dl Total Bilirubin (0.2-1.0) mg/dl AST (13-39) U/L ALT (7-52) U/L Alkaline Phosphatase (34-104) U/L Total Protein (6.0-8.3) gm/dl Albumin (3.4-5.0) gm/dl Globulin (2.5-4.0) gm/dl Albumin/Globulin Ratio (0.9-2) Lipase (11-82) U/L 25-OH Vitamin D Total (30-100) ng/ml Urine Color Urine Appearance (Clear) Urine pH (4.5-7.5) Ur Specific [place] (1.000-1.030) Urine Protein (Negative) Urine Glucose (UA) (Negative) Urine Ketones (Negative) Urine Blood (Negative) Urine Nitrite (Negative) Urine Bilirubin (Negative) Urine Urobilinogen (Negative) Ur Leukocyte Esterase (Negative) (2) Right wrist fracture Encounter type: initial encounter Fracture type: closed Qualified Code(s): S62.101A - Fracture of unspecified carpal bone, right wrist, initial encounter for closed fracture
[2023-04-22] MEDS: oxyCODONE HCL IR 5 MG TAB (IMMEDIATE RELEASE) PO PRN (09:42)
--- NOTE | 2023-04-22 09:49 | Discharge Summary ---
Date of Service April 22, 2023 Admission HPI Per Admitting Provider Ms. Bloom is an 82 year old female with pmhx (per patient and daughter at bedside) of CAD s/p stent x 6, CHF (unknown what type), HTN, and HLP. She suffered a mechanical fall and presented due to pain. She is found to have fractures of the right hip and wrist. Ms. Bloom has been in her usual state of health. She denies recent illness. She suffered a mechanical fall when she turned around rapidly. She landed on her right side. She is in 8.5/10 pain in the right hip. Pain is worse with movement and improved with analgesia and rest. She has some mild nausea which she says is not unusual for her. She denies dizziness, lightheadedness, COWAN, f/c/v, CP, sob, dyspnea, cough, congestion, sore throat, abdominal pain, diarrhea, and dysuria. ED course: VS notable for BP 177/83, otherwise unimpressive. b/w notable for wbc 13.02. Remaining cbc and cmp, lipase are unimpressive/wnl imaging revealed "Acute mildly impacted and displaced transcervical right femoral fracture...Acute, mildly impacted and displaced comminuted intra- articular distal radial fracture. Acute minimally displaced ulnar styloid fracture." Pt given Morphine, Tylenol, and NS. Admitted to hospitalist service. Ortho was consulted by ED MD. I am not aware of the plan other than the soonest the patient could possibly go to the OR is tomorrow, therefore I'll order a diet for now and NPO after midnight. Admission Exam Per Admitting Provider General:NAD, well nourished, well developed, non-toxic appearing Head:NC AT Eyes: anicteric sclera, no conjunctival injection Nose:normal, nares patent Mouth:MMM, discolored teeth Neck:supple, trachea midline CV:RRR S1 S2 Pulm:CTA b/l Abd/GI:+ BS, soft, NT, ND, no guarding :no garza Ext:no pretibial edema. RLE outwardly rotated, shortened. Right distal UE splinted, dressings not taken down. MSK:normal bulk and tone. Neuro:alert, no focal deficits, unable to move the RLE d/t pain. Moving the RUE. Psych:pleasant mood and affect Skin:visible skin is warm, dry, and without rash. Pt not fully undressed for exam. Principal Diagnosis s/p right hip hemiarthroplasty, right wrist distal radius and ulnar styloid fracture Discharge Exam GENERAL: Alert and oriented x3. NAD, on RA. HEENT: No pallor, no icterus. Pupils equal, round and reactive to light. Oral mucosa moist. NECK: No JVD, no neck masses. HEART: S1 and S2 heard. Regular rate and rhythm. No murmur, no gallop. RESPIRATORY SYSTEM: Normal AP diameter. No accessory muscle use. No wheezing, no crackles. ABDOMEN: Soft, bowel sounds present, nontender, no distention. CENTRAL NERVOUS SYSTEM: No facial droop. Speech is clear. Obeys simple commands. Moves extremities. EXTREMITIES: No edema, no erythema seen. Rt hip incision dressing c/d/i . Distal NV status wnl. Rt forearm in splint. Distal NV status wnl. Discharge Data Allergies Allergy/AdvReac Type Severity Reaction Status Date / Time No Known Allergies Allergy Unverified 04/12/23 21:13 Procedures Performed Operation Date: 04/13/23 09:00 Actual Procedures p Right Hip Hemiarthroplasty, Cemented(Right) - Aram Prajapati MD Hospital Course (1) Closed right hip fracture: Plan Closed right hip fracture:d/t mechanical fall. ortho consulted- s/p surgery on 04/13 by Aram Prajapati MD. Eliquis 2.5 mg twice a day 4-6 weeks. Monitor H&H closely. c/w analgesia, PT/OT. Per ortho, WBAT with walker right lower extremity, f/u ortho on dc. Follow up as scheduled with [facility] in [address] Prajapati. Right wrist fracture: Orthopedics on board, currently on splint. Nonweightbearing right upper extremity. Continue analgesia. Acute Blood loss anemia, likely 2/2 operative loss: Hb drop from above 13 to just below 10 perioperatively. H&H stable. On Eliquis per Ortho. Nausea/vomiting: improving, c/w bowel regimen. Vitamin D deficiency: Vitamin D level 29.1, vitamin D started at 5000 units daily. Transition to 1000 units daily upon discharge. Other chronic medical conditions: Continue with/resume home meds as and when able Chronic congestive heart failure: Patient unsure about the type of CHF she has, continue home Lasix. Currently euvolemic. Coronary artery disease: Stable, continue statin therapy. Neutrophilic leukocytosis: Likely reactive due to bone fracture, continue to monitor. HLD: Continue statin therapy HTN: Amlodipine and lisinopril resumed as patient hypertensive yesterday DVT prophylaxis: Patient on Eliquis 2.5 Mg twice daily PT/OT, CM to assist with DC planning Dispo: awaiting placement Peer to peer 04/18 - rehab denial upheld- CM assisting w/ other rehab options. Patient is being discharged to SNF with following instruction at the point of discharge: Follow-up with your primary care physician within a week time and likely you will need labs CBC/CMP/magnesium/phosphorus. Continue with pain medication and physical therapy. Take laxatives regularly a nd as needed as long as you are using pain medications. You had vitamin D deficiency, you are started on vitamin D supplement. You will need to follow-up vitamin D level in 6 months to 1 year time. Because of your hip surgery, you are started on low-dose Eliquis [for prevention of clot formation] per orthopedics for 6 weeks. You will be discharged with 5 more weeks of Eliquis. Follow-up with orthopedics doctor in a week time upon discharge. Take your medications as prescribed. Please make sure that you are able to get your medications today by calling your pharmacy before you leave the hospital so that your treatment continuity is not broken. Home Health Attestation I certify that this patient is under my care and that I, or a physicians purchasing administrative assistant working with me, had a face to-face encounter that meets the home health [id number] encounter requirements with this patient. The encounter with the patient was in whole, or in part, for the following medical condition, which is the primary reason for home health care (list medical condition): I certify that, based on my findings, the following services are medically necessary home health services: My clinical findings support the need for the above services because: Further, I certify that my clinical findings support that this patient is homebound (i.e. absences from home require considerable and taxing effort and are for medical reasons or anglican services or infrequently or of short du ration when for other reasons) because: Certification for Home Health Services: Based on the above findings, I certify that this patient is confined to the home and needs intermittent mcc care, physical therapy and/or speech therapy or continues to need occupational therapy. The patient is under my care, and I have initiated the establishment of the plan of care. This patient will be followed by a physician who will periodically review the plan of care. Total Time Total Time Spent Total Time Spent (In Minutes): 45 Discharge Plan Discharge Items Patient Disposition: Transfer [facility] Fac Reason For Visit: HIP FRACTURE Discharge Diagnosis: s/p right hip hemiarthroplasty, right wrist distal radius and ulnar styloid fracture Activity: Per Instructions section Non-emergency contact: Primary Care Provider Call non-emergency contact if: you have any medication questions, your pain is not controlled and your temperature is above 101 Follow-up/Referrals: Bernardino Abarca [Primary Care Provider] - Aram Prajapati MD [Surgeon] - 04/29/23 10:00 am Diet: Regular Addtl Attending Provider Instructions: Follow-up with your primary care physician within a week time and likely you will need labs CBC/CMP/magnesium/phosphorus. Continue with pain medication and physical therapy. Take laxatives regularly and as needed as long as you are using pain medications. You had vitamin D deficiency, you are started on vitamin D supplement. You will need to follow-up vitamin D level in 6 months to 1 year time. Because of your hip surgery, you are started on low-dose Eliquis [for prevention of clot formation] per orthopedics for 6 weeks. You will be discharged with 5 more weeks of Eliquis. Follow-up with orthopedics doctor in a week time upon discharge. Take your medications as prescribed. Please make sure that you are able to get your medications today by calling your pharmacy before you leave the hospital so that your treatment continuity is not broken. Addtl Public Relations Representative Provider Instructions: New Medicine: *Tylenol 500 mg every 4 hours as needed for pain *Eliquis 2.5mg twice a day for 6 weeks, compression stockings Activity Instructions: * Weight bearing as tolerated with walker, range of motion as tolerate * You will be working with physical therapy during your rehab process. Please attend PT as instructed. * Posterior hip precautions for 8 weeks - NO flexing you hip beyond 90 degrees, NO crossing your legs, and NO pointing your toes inward Self Care Instructions: * You may shower normally * Please keep your splint on your right arm clean and use a shower cover to avoid getting it wet Call your doctor if: * Temperature above 101 degrees F. * Pain not relieved by pain medicine ordered. * Increased drainage or redness from incision. * Notify your doctor with any questions or concerns. Follow-up Visit: * You will follow-up with Dr. Prajapati as scheduled * Please call [facility] at if you have any concerns or questions about your operation or recovery. The doctor or his nurse will return your call promptly. Pending Studies at Discharge: No Stand-Alone Forms: My [facility] Skilled Items Patient informed of condition?: Yes DNR: No Discharge Level of Care: Skilled Communicable Disease: No Discharge Prognosis: Stable Lines: None Urinary Catheter: No Medications and DC Order Prescriptions: New Eliquis 2.5 mg Tablet 2.5 mg PO BID 35 Days Qty: 70 0RF acetaminophen [Tylenol Extra Strength] 500 mg Tablet 625 mg PO Q8H 7 Days Qty: 27 0RF docusate sodium 100 mg Capsule 100 mg PO BID 14 Days Qty: 28 0RF polyethylene glycol 3350 [Miralax] 17 gram Powder In Packet 17 g PO DAILY PRN (Reason: laxative effect) Qty: 14 0RF cholecalciferol (vitamin D3) 25 mcg (1,000 unit) capsule 25 mcg PO DAILY Qty: 30 0RF Continued atorvastatin 80 mg tablet 80 mg PO HS citalopram 10 mg tablet 10 mg PO QAM hydrocodone-acetaminophen 5-325 mg tablet 1 tab PO QID PRN (Reason: Pain) amlodipine 5 mg tablet 5 mg PO DAILY pantoprazole 40 mg tablet,delayed release (DR/EC) 40 mg PO DAILYBB montelukast 10 mg tablet 10 mg PO PM furosemide 20 mg tablet 20 mg PO DIRECTED Rx Instructions: Friday and mornings ondansetron 4 mg tablet,disintegrating 4 mg PO Q6H PRN (Reason: Nausea And Vomiting) lisinopril 2.5 mg tablet 2.5 mg PO PM ezetimibe [Zetia] 10 mg tablet 10 mg PO QPM Discharge Orders: Discharge Order (Routine); Ordered 04/22/23 Ordered By: Ted Castillo Admission Data Admit Date/Time: 04/12/23 18:05 Attending Provider: Ted Castillo Admit Provider: Viki Friedman Primary Care Provider: Bernardino Abarca Other Providers: [facility] ; Yady Zafar
== END 2023-04-22 11:57 | DRG 522 ==
LOC: ED 14:29 → 3E 18:05 → SUATTDRO 18:05 → 3E 21:02